=== PATIENT | male | born 1995 | race Caucasian/White ===

== ENCOUNTER 2021-06-30 09:47 | Emergency (ER) | payer OTHER, MEDICAID, SELFPAY ==
[2021-06-30] VITALS (39 sets, daily range): BP systolic 107–153; BP diastolic 57–92; PULSE 70–116; RESP 10–59; TEMP 37.1–37.3; O2SAT 84–100
[2021-06-30] MEDS: LORazepam 2 MG/ML INJ 0.5 MG IV ×2 (09:50→16:45)
[2021-06-30] MEDS: ONDANSETRON 4 MG/2 ML INJ IV ×2 (09:50→18:29)
--- NOTE | 2021-06-30 10:00 | DI.CT.S_ITS ---
PROCEDURE: CT HEAD/BRAIN WO CON INDICATIONS: seizure x 3 today, hx sz disorder, more frequent than normal TECHNIQUE: Noncontrast 4.5 mm thick angled axial sections acquired from the foramen magnum to the vertex, with coronal and sagittal reformats. For radiation dose reduction, the following was used: automated exposure control, adjustment of mA and/or kV according to patient size. COMPARISON: None. FINDINGS: Image quality: Excellent. CSF spaces: Basal cisterns are patent. No extra-axial fluid collections. Ventricles are normal in size and shape. Brain: No midline shift. No intracranial masses or hemorrhage. Aggarwal-white matter interface is normal. Skull and face: Calvarium and visualized facial bones are intact, without suspicious lesions. Sinuses: Visualized sinuses and mastoids are clear. IMPRESSION: No acute intracranial disease process. Dictated by: Dorie Goel MD, PhD on 06/30/2021 at 11:06 Approved by: Dorie Goel MD, PhD on 06/30/2021 at 11:11
--- NOTE | 2021-06-30 10:03 | ED_ITS ---
HPI - Seizure <Carolyn Garciayonas - Last Filed: 07/02/21 15:52> General Chief Complaint: Seizure Stated Complaint: seizure Time Seen by Provider: 06/30/21 09:52 Source: patient Mode of arrival: Ambulatory Limitations: no limitations History of Present Illness HPI Narrative: This is a 25-year-old male who comes emergency department with witnessed seizure activity by parents. Patient has a history of what sounds like absent as well as possibly tonic-clonic seizures although his mom describes them as being more facial movement. Today patient was at home. He lives with his parents. His father heard a thump went into the bathroom with the patient was at and saw him on the floor. He awaking quite shortly, was up and then had 2 episodes that witnessed by father and subsequently by the mother. Patient had movement consistent with his prior seizures according to the mother. He was p ostictal with EMS and has been improving consciousness here in the department. Per EMS patient is on Keppra. Mother brought his medications which include aripiprazole, trazodone, escitalopram but did not bring his prescription for Keppra. Patient is still somewhat postictal and is unsure if he has had any missed dosages for interruptions in his medication. He typically follows with Neurology at [facility]. He has had some intermittent absent seizures in the last year but has not had any more generalized type seizures in the past year. Patient has not been complaining of feeling ill or having any exacerbating factors that he or his family are aware of at the moment but patient does have difficulty remembering much history at this time. Review of Systems <Carolyn Briggs DO - Last Filed: 07/02/21 15:52> Review of Systems ROS Unobtainable: All systems reviewed & are unremarkable except as noted in HPI and below Exam <Carolyn Sharla Briggs - Last Filed: 07/02/21 15:52> Narrative Exam Narrative: GEN: well nourished, well appearing male, alert, confused, patient appears to be in mild distress. HEENT: Patient has an abrasion and some swelling of the left cheek, pupils are equal round reactive to light, extraocular movements are intact, nares are clear, TMs are clear with no fluid, there is no conjunctival pallor. Throat is clear without any exudates, erythema, tonsillar enlargement or uvular deviation, no facial droop. Clear speech. No meningeal signs. HEART: Regular rate and rhythm without murmur, clicks, rubs. Pulses are equal in upper and lower extremities LUNGS:Lungs clear to auscultation, no wheezes, rales, crackles, chest moves symmetrically ABD:bowel sounds normal, soft, non-tender, no guarding, rebound, rigidity, no masses noted, no hepatosplenomegaly :No CVA tenderness MSCL: Non-tender, no muscle atrophy, muscles strength 5/5 upper and lower extremities, full range of motion, patient is able to sit up and lay back in the without any assistance. NEURO:CN 2-12 intact, sensation normal, reflexes 2/4 upper and lower extremities. SKIN: No other changes than noted above. . Initial Vital Signs Initial Vital Signs: Vital Signs Pulse Rate 92 H 06/30/21 09:57 Respiratory Rate 21 06/30/21 09:57 <Kali Pang, DO - Last Filed: 07/01/21 01:23> Initial Vital Signs Initial Vital Signs: Vital Signs Pulse Rate 92 H 06/30/21 09:57 Respiratory Rate 21 06/30/21 09:57 Scores <Carolyn Briggs, DO - Last Filed: 07/02/21 15:52> GCS Anais coma scale eye opening: Spontaneous Anais coma scale verbal response: Confused Anais coma scale motor response: Obey commands [place] coma scale total score: 14 <Kali Pang DO - Last Filed: 07/01/21 01:23> GCS [place] coma scale total score: 14 Course <Carolyn Briggs, DO - Last Filed: 07/02/21 15:52> Orders Ordered: Discontinued Medications Divalproex Sodium (Divalproex Dr 250 Mg Tablet) 750 mg PO NOW ONE Stop: 06/30/21 19:19 Last Admin: 06/30/21 21:29 Dose: Not Given Documented by: CTR.HANDER Levetiracetam 1,000 mg/ Sodium (Chloride) 110 mls @ 440 mls/hr IV NOW ONE Stop: 06/30/21 10:00 Last Infusion: 06/30/21 11:00 Dose: 0 mls/hr Documented by: CTR.HANDER Admin: 06/30/21 10:35 Dose: 440 mls/hr Documented by: CTR.HANDER Sodium Chloride (Normal Saline 0.9%) 1,000 mls @ 1,000 mls/hr IV BOLUS ONE Stop: 06/30/21 10:58 Last Infusion: 06/30/21 13:27 Dose: 0 mls/hr Documented by: Admin: 06/30/21 10:36 Dose: 1,000 mls/hr Documented by: KATARINA Sodium Chloride (Normal Saline 0.9%) 1,000 mls @ 1,000 mls/hr IV BOLUS ONE Stop: 06/30/21 14:24 Last Infusion: 06/30/21 14:57 Dose: 0 mls/hr Documented by: Admin: 06/30/21 13:30 Dose: 1,000 mls/hr Documented by: KATARINA Sodium Chloride (Normal Saline 0.9%) 1,000 mls @ 150 mls/hr IV CONT MIKAELA Last Infusion: 07/01/21 01:36 Dose: 150 mls/hr Documented by: Admin: 07/01/21 01:09 Dose: 150 mls/hr Documented by: Infusion: 06/30/21 23:26 Dose: 150 mls/hr Documented by: Admin: 06/30/21 16:45 Dose: 150 mls/hr Documented by: KATARINA Levetiracetam 1,000 mg/ Sodium (Chloride) 110 mls @ 440 mls/hr IV NOW ONE Stop: 06/30/21 19:18 Last Infusion: 06/30/21 20:21 Dose: 0 mls/hr Documented by: Admin: 06/30/21 20:02 Dose: 440 mls/hr Documented by: KATARINA Fosphenytoin Sodium 750 mg/ (Sodium Chloride) 115 mls @ 230 mls/hr IV NOW ONE Stop: 06/30/21 19:29 Last Infusion: 06/30/21 21:25 Dose: 0 mls/hr Documented by: Admin: 06/30/21 20:23 Dose: 230 mls/hr Documented by: KATARINA Lorazepam (Lorazepam 2 Mg/Ml Inj) 0.5 mg IV NOW ONE Stop: 06/30/21 10:31 Last Admin: 06/30/21 09:50 Dose: 0.5 mg Documented by: AMBROSIO Lorazepam (Lorazepam 2 Mg/Ml Inj) 0.5 mg IV Q6HR PRN PRN Reason: Anxiety Last Admin: 06/30/21 16:45 Dose: 0.5 mg Documented by: KATARINA Ondansetron HCl (Ondansetron 4 Mg/2 Ml Inj) 4 mg IV NOW ONE Stop: 06/30/21 10:31 Last Admin: 06/30/21 09:50 Dose: 4 mg Documented by: AMBROSIO Ondansetron HCl (Ondansetron 4 Mg Odt) 4 mg SL NOW ONE Stop: 06/30/21 15:50 Last Admin: 06/30/21 15:56 Dose: 4 mg Documented by: HANDER Ondansetron HCl (Ondansetron 4 Mg/2 Ml Inj) 4 mg IV NOW ONE Stop: 06/30/21 18:25 Last Admin: 06/30/21 18:29 Dose: 4 mg Documented by: KATARINA Reevaluation(s) Time: 12:39 Consultations Consultation #1: Dr. Duong, this Neurology at [facility]. This is patient's a neurologist. 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 Patient was on the X SR version of Keppra a 1000 mg in the morning and 1500 mg in the evening and has an appointment on 07/13/2021. She recommends increasing to 1500 mg b.i.d.. Keppra level has been sent and she will try that helpful for them. If patient is not returning completely to baseline we will recontact. Consultation #2: Dr. Hernandez, at [facility] with neurology. Discussed patient's l abs including procalcitonin. He is still not at baseline. He has not improved further and with mother in room who states is atypical. Recommend an additional dose of a 1000 mg Keppra IV as well as 750 mg of Depakote IV or p.o.. IV would be preferable. If patient continues to not improve, becomes more obtunded or develops fevers would recommend a lumbar puncture at this point. His suspicion is patient has had many seizures. We did discuss we do not have EEG capability. At this time there are no beds available at the hospitals in the region so we are to recontact if not improving for transfer but no transfer at this time. Vital Signs Vital signs: Vital Signs - 8 hr 06/30/21 17:30 06/30/21 18:00 06/30/21 18:30 Temperature Pulse Rate 85 80 92 H Respiratory Rate 27 H 25 H 37 H Blood Pressure Pulse Oximetry 97 94 91 06/30/21 19:00 06/30/21 19:30 06/30/21 20:00 Temperature Pulse Rate 79 80 83 Respiratory Rate 27 H 22 33 H Blood Pressure Pulse Oximetry 98 96 97 06/30/21 20:30 06/30/21 21:00 06/30/21 21:15 Temperature Pulse Rate 88 80 89 Respiratory Rate 31 H 59 H 25 H Blood Pressure 120/64 Pulse Oximetry 98 94 100 06/30/21 21:30 06/30/21 21:33 Temperature 99.1 F 98.7 F Pulse Rate Respiratory Rate Blood Pressure Pulse Oximetry <Kali Pang, - Last Filed: 07/01/21 01:23> Course Course Narrative: Patient received in sign-out from Dr. Briggs. I performed independent history and physical exam and have no significant additions. At time of initial evaluation patient is still a bit sluggish to respond, I have been in contact with Dr. Sandoval, on-call Neurology hospitalist at [facility] and we agree to hold on a bit and allow meds to fully take effect 0000 - patient at baseline. Awake, alert and oriented. Asymptomatic. 0130 -patient continues to be at baseline, asymptomatic. I have re-contacted [facility] Neurology and after lengthy discussion of the patient's presentation, physical exam, response to therapies we sure the opinion the patient is appropriate for discharge. She again recommends increasing Keppra dosing to 1500 mg b.i.d. and contacting the neurology office on Saturday. He does have an appointment, as stated for July 13, she will relate a message to the office as well. He is given extensive return precautions Orders Ordered: Discontinued Medications Divalproex Sodium (Divalproex Dr 250 Mg Tablet) 750 mg PO NOW ONE Stop: 06/30/21 19:19 Last Admin: 06/30/21 21:29 Dose: Not Given Documented by: CTR.HANDER Levetiracetam 1,000 mg/ Sodium (Chloride) 110 mls @ 440 mls/hr IV NOW ONE Stop: 06/30/21 10:00 Last Infusion: 06/30/21 11:00 Dose: 0 mls/hr Documented by: CTRMiriamHANDER Admin: 06/30/21 10:35 Dose: 440 mls/hr Documented by: CTRMiriamHANDLENNY Sodium Chloride (Normal Saline 0.9%) 1,000 mls @ 1,000 mls/hr IV BOLUS ONE Stop: 06/30/21 10:58 Last Infusion: 06/30/21 13:27 Dose: 0 mls/hr Documented by: CTRMiriamHANDER Admin: 06/30/21 10:36 Dose: 1,000 mls/hr Documented by: CTRMiriamHANDLENNY Sodium Chloride (Normal Saline 0.9%) 1,000 mls @ 1,000 mls/hr IV BOLUS ONE Stop: 06/30/21 14:24 Last Infusion: 06/30/21 14:57 Dose: 0 mls/hr Documented by: CTRMiriamHANDER Admin: 06/30/21 13:30 Dose: 1,000 mls/hr Documented by: CTRMiriamHANDLENNY Sodium Chloride (Normal Saline 0.9%) 1,000 mls @ 150 mls/hr IV CONT MIKAELA Last Infusion: 07/01/21 01:36 Dose: 150 mls/hr Documented by: Admin: 07/01/21 01:09 Dose: 150 mls/hr Documented by: Infusion: 06/30/21 23:26 Dose: 150 mls/hr Documented by: Admin: 06/30/21 16:45 Dose: 150 mls/hr Documented by: CTRMiriamHANDLENNY Levetiracetam 1,000 mg/ Sodium (Chloride) 110 mls @ 440 mls/hr IV NOW ONE Stop: 06/30/21 19:18 Last Infusion: 06/30/21 20:21 Dose: 0 mls/hr Documented by: CTRMiriamHANDER Admin: 06/30/21 20:02 Dose: 440 mls/hr Documented by: CTRMiriamHANDLENNY Fosphenytoin Sodium 750 mg/ (Sodium Chloride) 115 mls @ 230 mls/hr IV NOW ONE Stop: 06/30/21 19:29 Last Infusion: 06/30/21 21:25 Dose: 0 mls/hr Documented by: CTRMiriamHANDER Admin: 06/30/21 20:23 Dose: 230 mls/hr Documented by: KATARINA Lorazepam (Lorazepam 2 Mg/Ml Inj) 0.5 mg IV NOW ONE Stop: 06/30/21 10:31 Last Admin: 06/30/21 09:50 Dose: 0.5 mg Documented by: AMBROSIO Lorazepam (Lorazepam 2 Mg/Ml Inj) 0.5 mg IV Q6HR PRN PRN Reason: Anxiety Last Admin: 06/30/21 16:45 Dose: 0.5 mg Documented by: KATARINA Ondansetron HCl (Ondansetron 4 Mg/2 Ml Inj) 4 mg IV NOW ONE Stop: 06/30/21 10:31 Last Admin: 06/30/21 09:50 Dose: 4 mg Documented by: AMBROSIO Ondansetron HCl (Ondansetron 4 Mg Odt) 4 mg SL NOW ONE Stop: 06/30/21 15:50 Last Admin: 06/30/21 15:56 Dose: 4 mg Documented by: KATARINA Ondansetron HCl (Ondansetron 4 Mg/2 Ml Inj) 4 mg IV NOW ONE Stop: 06/30/21 18:25 Last Admin: 06/30/21 18:29 Dose: 4 mg Documented by: KATARINA Vital Signs Vital signs: Vital Signs - 8 hr 06/30/21 17:30 06/30/21 18:00 06/30/21 18:30 Temperature Pulse Rate 85 80 92 H Respiratory Rate 27 H 25 H 37 H Blood Pressure Pulse Oximetry 97 94 91 06/30/21 19:00 06/30/21 19:30 06/30/21 20:00 Temperature Pulse Rate 79 80 83 Respiratory Rate 27 H 22 33 H Blood Pressure Pulse Oximetry 98 96 97 06/30/21 20:30 06/30/21 21:00 06/30/21 21:15 Temperature Pulse Rate 88 80 89 Respiratory Rate 31 H 59 H 25 H Blood Pressure 120/64 Pulse Oximetry 98 94 100 06/30/21 21:30 06/30/21 21:33 Temperature 99.1 F 98.7 F Pulse Rate Respiratory Rate Blood Pressure Pulse Oximetry MDM - Seizure <Carolyn Briggs DO - Last Filed: 07/02/21 15:52> Lab Data Result diagrams: 06/30/21 10:50 06/30/21 16:33 Labs: Lab Results 06/30/21 06/30/21 06/30/21 Range/Units 09:53 10:50 10:50 WBC 24.7 H (4.5-11.0) X10^3/uL RBC 4.83 (4.5-5.9) X10^6/uL Hgb 14.0 (13.5-17.5) g/dL Hct 41.8 (41-53) % MCV 86.6 (80-100) fL MCH 29.0 (26-34) PG MCHC 33.4 (30-36) % RDW 13.6 (11.6-14.8) % Plt Count 232 (150-400) X10^3/uL Neut % (Auto) 87.4 H (50-75) % Lymph % (Auto) 3.7 L (25-40) % Tate % (Auto) 8.6 (3-14) % Eos % (Auto) 0.0 L (2-4) % Baso % (Auto) 0.3 (0-2) % Neut # (Auto) 72302 H (1800-3557) /uL Lymph # (Auto) 900 L (5810-4859) /uL Tate # (Auto) 2100 H (0-900) /uL Eos # (Auto) 0 (0-450) /uL Baso # (Auto) 100 (0-100) /uL Sodium (137-145) mmol/L Potassium (3.4-5.1) mmol/L Chloride (98-107) mmol/L Carbon Dioxide (22-32) mmol/L BUN (9-20) mg/dL Creatinine (0.66-1.25) mg/dL Estimated GFR (>60) mL/min BUN/Creatinine Ratio (6-22) Glucose (70-100) mg/dL Lactate (0.7-2.1) mmol/L Calcium (8.4-10.2) mg/dL Magnesium (1.6-2.3) mg/dL Total Bilirubin (0.2-1.3) mg/dL AST (17-59) IU/L ALT (<50) IU/L Alkaline Phosphatase (38-126) U/L Total Protein (6.3-8.2) g/dL Albumin (3.5-5.0) g/dL Globulin (1.7-4.1) g/dL Albumin/Globulin Ratio (1.0-2.8) Lipase (23-300) U/L Procalcitonin (<0.5) ng/mL Prolactin (3.7-17.9) ng/mL Urine RBC (0-5/HPF) Urine WBC (0-5/HPF) Uric Acid Crystals (None) Amorphous Sediment Urine Bacteria (None) Ur Culture Indicated? U Opiates 300ng/mL cut (Negative) Ur Oxycodone Screen (Negative) Urine Methadone Screen (Negative) Ur Barbiturates Screen (Negative) U Tricyclic Antidepress (Negative) Ur Phencyclidine Scrn (Negative) Ur Amphetamines Screen (Negative) U Methamphetamines Scrn (Negative) Ur MDMA Scrn (Ecstasy) (Negative) U Benzodiazepines Scrn (Negative) Urine Cocaine Screen (Negative) U Marijuana (THC) Screen (Negative) Ethyl Alcohol < 10 ( - 10) mg/dL SARS-CoV-2 (PCR) Negative (Negative) 06/30/21 06/30/21 06/30/21 Range/Units 10:50 14:00 14:00 WBC (4.5-11.0) X10^3/uL RBC (4.5-5.9) X10^6/uL Hgb (13.5-17.5) g/dL Hct (41-53) % MCV (80-100) fL MCH (26-34) PG MCHC (30-36) % RDW (11.6-14.8) % Plt Count (150-400) X10^3/uL Neut % (Auto) (50-75) % Lymph % (Auto) (25-40) % Tate % (Auto) (3-14) % Eos % (Auto) (2-4) % Baso % (Auto) (0-2) % Neut # (Auto) (3612-3245) /uL Lymph # (Auto) (3011-7269) /uL Tate # (Auto) (0-900) /uL Eos # (Auto) (0-450) /uL Baso # (Auto) (0-100) /uL Sodium 140 (137-145) mmol/L Potassium 3.5 (3.4-5.1) mmol/L Chloride 110 H (98-107) mmol/L Carbon Dioxide 21 L (22-32) mmol/L BUN 13 (9-20) mg/dL Creatinine 0.92 (0.66-1.25) mg/dL Estimated GFR > 60.0 (>60) mL/min BUN/Creatinine Ratio 14.1 (6-22) Glucose 102 H (70-100) mg/dL Lactate (0.7-2.1) mmol/L Calcium 9.0 (8.4-10.2) mg/dL Magnesium 2.4 H (1.6-2.3) mg/dL Total Bilirubin (0.2-1.3) mg/dL AST (17-59) IU/L ALT (<50) IU/L Alkaline Phosphatase (38-126) U/L Total Protein (6.3-8.2) g/dL Albumin (3.5-5.0) g/dL Globulin (1.7-4.1) g/dL Albumin/Globulin Ratio (1.0-2.8) Lipase (23-300) U/L Procalcitonin (<0.5) ng/mL Prolactin 3.7 (3.7-17.9) ng/mL Urine RBC None seen (0-5/HPF) Urine WBC 0-1/hpf (0-5/HPF) Uric Acid Crystals Occasional (None) Amorphous Sediment 2+ Urine Bacteria None seen (None) Ur Culture Indicated? Cult not indicated U Opiates 300ng/mL cut Negative (Negative) Ur Oxycodone Screen Negative (Negative) Urine Methadone Screen Negative (Negative) Ur Barbiturates Screen Negative (Negative) U Tricyclic Antidepress Negative (Negative) Ur Phencyclidine Scrn Negative (Negative) Ur Amphetamines Screen Negative (Negative) U Methamphetamines Scrn Negative (Negative) Ur MDMA Scrn (Ecstasy) Negative (Negative) U Benzodiazepines Scrn Negative (Negative) Urine Cocaine Screen Negative (Negative) U Marijuana (THC) Screen Positive H (Negative) Ethyl Alcohol ( - 10) mg/dL SARS-CoV-2 (PCR) (Negative) 06/30/21 06/30/21 06/30/21 Range/Units 16:33 16:33 16:33 WBC (4.5-11.0) X10^3/uL RBC (4.5-5.9) X10^6/uL Hgb (13.5-17.5) g/dL Hct (41-53) % MCV (80-100) fL MCH (26-34) PG MCHC (30-36) % RDW (11.6-14.8) % Plt Count (150-400) X10^3/uL Neut % (Auto) (50-75) % Lymph % (Auto) (25-40) % Tate % (Auto) (3-14) % Eos % (Auto) (2-4) % Baso % (Auto) (0-2) % Neut # (Auto) (4925-5535) /uL Lymph # (Auto) (6335-5905) /uL Tate # (Auto) (0-900) /uL Eos # (Auto) (0-450) /uL Baso # (Auto) (0-100) /uL Sodium 140 (137-145) mmol/L Potassium 3.8 (3.4-5.1) mmol/L Chloride 113 H (98-107) mmol/L Carbon Dioxide 17 L (22-32) mmol/L BUN 17 (9-20) mg/dL Creatinine 1.40 H (0.66-1.25) mg/dL Estimated GFR > 60.0 (>60) mL/min BUN/Creatinine Ratio 12.1 (6-22) Glucose 118 H (70-100) mg/dL Lactate 1.6 (0.7-2.1) mmol/L Calcium 8.4 (8.4-10.2) mg/dL Magnesium (1.6-2.3) mg/dL Total Bilirubin 0.3 (0.2-1.3) mg/dL AST 37 (17-59) IU/L ALT 19 (<50) IU/L Alkaline Phosphatase 48 (38-126) U/L Total Protein 6.7 (6.3-8.2) g/dL Albumin 4.1 (3.5-5.0) g/dL Globulin 2.6 (1.7-4.1) g/dL Albumin/Globulin Ratio 1.6 (1.0-2.8) Lipase 88 (23-300) U/L Procalcitonin 1.65 H (<0.5) ng/mL Prolactin (3.7-17.9) ng/mL Urine RBC (0-5/HPF) Urine WBC (0-5/HPF) Uric Acid Crystals (None) Amorphous Sediment Urine Bacteria (None) Ur Culture Indicated? U Opiates 300ng/mL cut (Negative) Ur Oxycodone Screen (Negative) Urine Methadone Screen (Negative) Ur Barbiturates Screen (Negative) U Tricyclic Antidepress (Negative) Ur Phencyclidine Scrn (Negative) Ur Amphetamines Screen (Negative) U Methamphetamines Scrn (Negative) Ur MDMA Scrn (Ecstasy) (Negative) U Benzodiazepines Scrn (Negative) Urine Cocaine Screen (Negative) U Marijuana (THC) Screen (Negative) Ethyl Alcohol ( - 10) mg/dL SARS-CoV-2 (PCR) (Negative) Urine Dip Bedside Urine Glucose 100 mg/dl Bedside Urine Bilirubin - Negative Bedside Urine Ketone +/- 5 Urine Specific Davis 1.025 Bedside Urine Occult Blood + Bedside Urine pH 6.0 Bedside Urine Protein + 30 Bedside Urine Urobilinogen - Negative Bedside Urine Nitrite - Negative Bedside Urine Leukocytes - Negative Esterase Imaging Data CT scan - head: Radiologist's Impression: [address] [id number] Scan ReportSigned Patient: Leeroy Wilson II#: [id number]: 1995Acct:[id number]/Sex: 25 / MDate of Service: 06/30/21Loc: EDAccession Number: [id number] Procedure: CT head/brain wo con Ordering Provider: Carolyn Briggs D.O. PROCEDURE: CT HEAD/BRAIN WO CON INDICATIONS: seizure x 3 today, hx sz disorder, more frequent than normal TECHNIQUE: Noncontrast 4.5 mm thick angled axial sections acquired from the foramen magnum to the vertex, with coronal and sagittal reformats. For radiation dose reduction, the following was used: automated exposure control, adjustment of mA and/or kV according to patient size. COMPARISON: None. FINDINGS: Image quality: Excellent. CSF spaces: Basal cisterns are patent. No extra-axial fluid collections. Ventricles are normal in size and shape. Brain: No midline shift. No intracranial masses or hemorrhage. Aggarwal-white mat ter interface is normal. Skull and face: Calvarium and visualized facial bones are intact, without suspicious lesions. Sinuses: Visualized sinuses and mastoids are clear. IMPRESSION: No acute intracranial disease process. Dictated by: Dorie Goel MD, PhD on 06/30/2021 at 11:06 Approved by: Dorie Goel MD, PhD on 06/30/2021 at 11:11 ECG Data Attestation: I personally reviewed and interpreted this ECG as follows: Prior ECG tracings: not available for review Interpretation: Sinus rhythm with sinus arrhythmia. Rate of 90 7p are 122 QRS 88 QTC 436. Nonspecific change. MDM Narrative Medical decision making narrative: This is a 25-year-old male comes in with complaint of seizure who has never returned to his baseline mentation. Patient was loaded initially with 1000 mg of Keppra. Discussed with his regular neurologist. Patient had some Ativan so there was concern that possibly this was altering his mental status but he has still not improved. Case was dis cussed again with Neurology after some further evaluation for infection as patient had several episodes of emesis. He does not have any other new acute focal neurologic changes. He has been afebrile. Patient continues to be confused but has not had worsening of his mentation. Repeat Neurology re commendations were given. They do recommend if patient becomes more obtunded or develops fevers in lumbar puncture would be appropriate. At this time they do not recommend for transfer there is little to no bed availability but if patient is worsening or not improving they ask her recontact. Patient signed out to Dr. Pang for observation in department for final disposition. <Kali Pang DO - Last Filed: 07/01/21 01:23> Lab Data Labs: Lab Results 06/30/21 06/30/21 06/30/21 Range/Units 09:53 10:50 10:50 WBC 24.7 H (4.5-11.0) X10^3/uL RBC 4.83 (4.5-5.9) X10^6/uL Hgb 14.0 (13.5-17.5) g/dL Hct 41.8 (41-53) % MCV 86.6 (80-100) fL MCH 29.0 (26-34) PG MCHC 33.4 (30-36) % RDW 13.6 (11.6-14.8) % Plt Count 232 (150-400) X10^3/uL Neut % (Auto) 87.4 H (50-75) % Lymph % (Auto) 3.7 L (25-40) % Tate % (Auto) 8.6 (3-14) % Eos % (Auto) 0.0 L (2-4) % Baso % (Auto) 0.3 (0-2) % Neut # (Auto) 66937 H (4454-9440) /uL Lymph # (Auto) 900 L (0449-6318) /uL Tate # (Auto) 2100 H (0-900) /uL Eos # (Auto) 0 (0-450) /uL Baso # (Auto) 100 (0-100) /uL Sodium (137-145) mmol/L Potassium (3.4-5.1) mmol/L Chloride (98-107) mmol/L Carbon Dioxide (22-32) mmol/L BUN (9-20) mg/dL Creatinine (0.66-1.25) mg/dL Estimated GFR (>60) mL/min BUN/Creatinine Ratio (6-22) Glucose (70-100) mg/dL Lactate (0.7-2.1) mmol/L Calcium (8.4-10.2) mg/dL Magnesium (1.6-2.3) mg/dL Total Bilirubin (0.2-1.3) mg/dL AST (17-59) IU/L ALT (<50) IU/L Alkaline Phosphatase (38-126) U/L Total Protein (6.3-8.2) g/dL Albumin (3.5-5.0) g/dL Globulin (1.7-4.1) g/dL Albumin/Globulin Ratio (1.0-2.8) Lipase (23-300) U/L Procalcitonin (<0.5) ng/mL Prolactin (3.7-17.9) ng/mL Urine RBC (0-5/HPF) Urine WBC (0-5/HPF) Uric Acid Crystals (None) Amorphous Sediment Urine Bacteria (None) Ur Culture Indicated? U Opiates 300ng/mL cut (Negative) Ur Oxycodone Screen (Negative) Urine Methadone Screen (Negative) Ur Barbiturates Screen (Negative) U Tricyclic Antidepress (Negative) Ur Phencyclidine Scrn (Negative) Ur Amphetamines Screen (Negative) U Methamphetamines Scrn (Negative) Ur MDMA Scrn (Ecstasy) (Negative) U Benzodiazepines Scrn (Negative) Urine Cocaine Screen (Negative) U Marijuana (THC) Screen (Negative) Ethyl Alcohol < 10 ( - 10) mg/dL SARS-CoV-2 (PCR) Negative (Negative) 06/30/21 06/30/21 06/30/21 Range/Units 10:50 14:00 14:00 WBC (4.5-11.0) X10^3/uL RBC (4.5-5.9) X10^6/uL Hgb (13.5-17.5) g/dL Hct (41-53) % MCV (80-100) fL MCH (26-34) PG MCHC (30-36) % RDW (11.6-14.8) % Plt Count (150-400) X10^3/uL Neut % (Auto) (50-75) % Lymph % (Auto) (25-40) % Tate % (Auto) (3-14) % Eos % (Auto) (2-4) % Baso % (Auto) (0-2) % Neut # (Auto) (4238-5484) /uL Lymph # (Auto) (1180-3185) /uL Tate # (Auto) (0-900) /uL Eos # (Auto) (0-450) /uL Baso # (Auto) (0-100) /uL Sodium 140 (137-145) mmol/L Potassium 3.5 (3.4-5.1) mmol/L Chloride 110 H (98-107) mmol/L Carbon Dioxide 21 L (22-32) mmol/L BUN 13 (9-20) mg/dL Creatinine 0.92 (0.66-1.25) mg/dL Estimated GFR > 60.0 (>60) mL/min BUN/Creatinine Ratio 14.1 (6-22) Glucose 102 H (70-100) mg/dL Lactate (0.7-2.1) mmol/L Calcium 9.0 (8.4-10.2) mg/dL Magnesium 2.4 H (1.6-2.3) mg/dL Total Bilirubin (0.2-1.3) mg/dL AST (17-59) IU/L ALT (<50) IU/L Alkaline Phosphatase (38-126) U/L Total Protein (6.3-8.2) g/dL Albumin (3.5-5.0) g/dL Globulin (1.7-4.1) g/dL Albumin/Globulin Ratio (1.0-2.8) Lipase (23-300) U/L Procalcitonin (<0.5) ng/mL Prolactin 3.7 (3.7-17.9) ng/mL Urine RBC None seen (0-5/HPF) Urine WBC 0-1/hpf (0-5/HPF) Uric Acid Crystals Occasional (None) Amorphous Sediment 2+ Urine Bacteria None seen (None) Ur Culture Indicated? Cult not indicated U Opiates 300ng/mL cut Negative (Negative) Ur Oxycodone Screen Negative (Negative) Urine Methadone Screen Negative (Negative) Ur Barbiturates Screen Negative (Negative) U Tricyclic Antidepress Negative (Negative) Ur Phencyclidine Scrn Negative (Negative) Ur Amphetamines Screen Negative (Negative) U Methamphetamines Scrn Negative (Negative) Ur MDMA Scrn (Ecstasy) Negative (Negative) U Benzodiazepines Scrn Negative (Negative) Urine Cocaine Screen Negative (Negative) U Marijuana (THC) Screen Positive H (Negative) Ethyl Alcohol ( - 10) mg/dL SARS-CoV-2 (PCR) (Negative) 06/30/21 06/30/21 06/30/21 Range/Units 16:33 16:33 16:33 WBC (4.5-11.0) X10^3/uL RBC (4.5-5.9) X10^6/uL Hgb (13.5-17.5) g/dL Hct (41-53) % MCV (80-100) fL MCH (26-34) PG MCHC (30-36) % RDW (11.6-14.8) % Plt Count (150-400) X10^3/uL Neut % (Auto) (50-75) % Lymph % (Auto) (25-40) % [place] % (Auto) (3-14) % Eos % (Auto) (2-4) % Baso % (Auto) (0-2) % Neut # (Auto) (3139-9790) /uL Lymph # (Auto) (2865-2387) /uL [place] # (Auto) (0-900) /uL Eos # (Auto) (0-450) /uL Baso # (Auto) (0-100) /uL Sodium 140 (137-145) mmol/L Potassium 3.8 (3.4-5.1) mmol/L Chloride 113 H (98-107) mmol/L Carbon Dioxide 17 L (22-32) mmol/L BUN 17 (9-20) mg/dL Creatinine 1.40 H (0.66-1.25) mg/dL Estimated GFR > 60.0 (>60) mL/min BUN/Creatinine Ratio 12.1 (6-22) Glucose 118 H (70-100) mg/dL Lactate 1.6 (0.7-2.1) mmol/L Calcium 8.4 (8.4-10.2) mg/dL Magnesium (1.6-2.3) mg/dL Total Bilirubin 0.3 (0.2-1.3) mg/dL AST 37 (17-59) IU/L ALT 19 (<50) IU/L Alkaline Phosphatase 48 (38-126) U/L Total Protein 6.7 (6.3-8.2) g/dL Albumin 4.1 (3.5-5.0) g/dL Globulin 2.6 (1.7-4.1) g/dL Albumin/Globulin Ratio 1.6 (1.0-2.8) Lipase 88 (23-300) U/L Procalcitonin 1.65 H (<0.5) ng/mL Prolactin (3.7-17.9) ng/mL Urine RBC (0-5/HPF) Urine WBC (0-5/HPF) Uric Acid Crystals (None) Amorphous Sediment Urine Bacteria (None) Ur Culture Indicated? U Opiates 300ng/mL cut (Negative) Ur Oxycodone Screen (Negative) Urine Methadone Screen (Negative) Ur Barbiturates Screen (Negative) U Tricyclic Antidepress (Negative) Ur Phencyclidine Scrn (Negative) Ur Amphetamines Screen (Negative) U Methamphetamines Scrn (Negative) Ur MDMA Scrn (Ecstasy) (Negative) U Benzodiazepines Scrn (Negative) Urine Cocaine Screen (Negative) U Marijuana (THC) Screen (Negative) Ethyl Alcohol ( - 10) mg/dL SARS-CoV-2 (PCR) (Negative) Urine Dip Bedside Urine Glucose 100 mg/dl Bedside Urine Bilirubin - Negative Bedside Urine Ketone +/- 5 Urine Specific [place] 1.025 Bedside Urine Occult Blood + Bedside Urine pH 6.0 Bedside Urine Protein + 30 Bedside Urine Urobilinogen - Negative Bedside Urine Nitrite - Negative Bedside Urine Leukocytes - Negative Esterase <Kali VasquezDO elba - Last Filed: 07/01/21 01:23> Critical Care Time Critical Care Time: Yes Total Critical Care Time: 45 Attestation: The high probability of a clinically significant, sudden or life threatening deterioration of the [Neuro] system(s) required my full and direct attention, intervention and personal management. The aggregate critical care time was [45] minutes. This time is in addition to time spent performing reported procedures but includes the following: [x] Data Review and interpretation [x] Patient assessment and monitoring of vital signs [x] Documentation [x] Medication orders and management Discharge Plan Departure Patient Disposition: Home Clinical Impression: Seizure Instructions: DI for Seizure Disorder -- Adult Activity Restrictions/Additional Instructions: Follow-up with your neurologist. I spoke with them today. They do recommend increasing your Keppra level from 1000 mg in the morning and 1500 mg in the afternoon to 1500 mg twice daily. Prescription sent to Seizure precautions do continue to be in place and at this time you should not be driving until cleared by your neurologist, swimming or bathing without anyone in the near vicinity, or any other high risk activities. Please return for fevers, recurrent seizure-like activity, altered mental status, severe headaches, new chest pain, shortness of breath, difficulty with speech, numbness, tingling weakness or other new or concerning symptoms. Referrals: Fatmata Duong MD [Non-Staff] -
[2021-06-30 10:25] LABS: COVID19 -Nasal RAPID Negative (Negative)
[2021-06-30] MEDS: levETIRAcetam 1,000 MG in SODIUM CHLORIDE 0.9% 100 ML 440 ML IV ×2 (10:35→20:02)
[2021-06-30] MEDS: SODIUM CHLORIDE 0.9% 1,000 ML 1000 ML IV ×2 (10:36→13:30)
[2021-06-30 11:04] LABS: Add Manual Diff / Slide Review NO; Basophils Absolute Auto 100 /uL (0-100); Basophils Percent Auto 0.3 % (0-2); Eosinophils Absolute Auto 0 /uL (0-450); Hematocrit 41.8 % (41-53); Lymphocytes Absolute Auto 900 /uL (1100-4500); Lymphocytes Percent Auto 3.7 % (25-40); Mean Corpuscular HGB Conc 33.4 % (30-36); Mean Corpuscular Volume 86.6 fL (80-100); Monocytes Absolute Auto 2100 /uL (0-900); Monocytes Percent Auto 8.6 % (3-14); Neutrophils Absolute Auto 21600 /uL (1500-7000); Neutrophils Percent Auto 87.4 % (50-75); Platelet Count 232 X10^3/uL (150-400); Red Blood Cell Count 4.83 X10^6/uL (4.5-5.9); Red Cell Distribution Width 13.6 % (11.6-14.8); White Blood Cell Count 24.7 X10^3/uL (4.5-11.0)
[2021-06-30 11:07] LABS: BUN Creatinine Ratio 14.1 (6-22); Blood Urea Nitrogen 13 mg/dL (9-20); Carbon Dioxide 21 mmol/L (22-32); Chloride 110 mmol/L (98-107); Estimated Glomerular Filt Rate > 60.0 mL/min (>60); Glucose 102 mg/dL (70-100); HEMOLYSIS < 15 (0-50); Magnesium 2.4 mg/dL (1.6-2.3); Potassium 3.5 mmol/L (3.4-5.1); Sodium 140 mmol/L (137-145)
[2021-06-30 11:08] LABS: Ethanol (ETOH) < 10 mg/dL
[2021-06-30 11:24] LABS: Prolactin 3.7 ng/mL (3.7-17.9)
--- NOTE | 2021-06-30 14:55 | PC.NURSE ---
Pt remains confused beyond baseline. After being instructed to urinate in the urinal, he urinated in the emesis bag instead. Shortly thereafter he ripped out his IV in his sleep, on accident. Bleeding controlled.
[2021-06-30 15:09] LABS: Bacteria Urine None Seen; RBC Urine None Seen (0-5/HPF)
[2021-06-30 15:14] LABS: UR Morphine/Opiate cutoff 300 Negative (Negative); Ur Creatinine Normal (Normal); Ur Specific Gravity Normal (Normal); Urine Amphetamines Negative (Negative); Urine Barbiturates Negative (Negative); Urine Benzodiazepines Negative (Negative); Urine Cocaine Negative (Negative); Urine MDMA Negative (Negative); Urine Methadone Negative (Negative); Urine Methamphetamines Negative (Negative); Urine Oxycodone Negative (Negative); Urine Phencyclidine Negative (Negative); Urine Tetrahydrocannabinol Positive (Negative); Urine Tricyclic Antidepressant Negative (Negative); Urine pH Normal (Normal)
[2021-06-30 15:23] LABS: Amorphous Sediment Urine 2+; Culture Indicated Urine Cult Not Indicated; Uric Acid Crystals Urine Occasional; WBC Urine 0-1/HPF (0-5/HPF)
[2021-06-30] MEDS: ONDANSETRON 4 MG ODT SL (15:56)
--- NOTE | 2021-06-30 16:17 | DI.CT.S_ITS ---
PROCEDURE: CT ABDOMEN PELVIS W CON INDICATIONS: throwing up, elevated wbc. TECHNIQUE: After the administration of intravenous contrast, axial sections acquired from the lung bases to the pubic symphysis. Coronal and sagittal reformats were performed. For radiation dose reduction, the following was used: automated exposure control, adjustment of mA and/or kV according to patient size. COMPARISON: None. FINDINGS: Image quality: Excellent. Lung bases: Unremarkable. Heart: No significant findings. ABDOMEN: Liver: Unremarkable. Gallbladder: Unremarkable. Biliary ducts: Unremarkable. Pancreas: Unremarkable. Spleen: Unremarkable. Adrenal Glands: Unremarkable. Kidneys and Ureters: Unremarkable. Stomach and Bowel: Stomach, small bowel loops, and colon are unremarkable. Appendix is normal. Peritoneum: No abnormal intraperitoneal fluid. No free air. Ventral Wall: No hernias. Abdominal Nodes: No retroperitoneal or mesenteric adenopathy by size criteria. Vessels: Aorta and inferior vena cava are normal in size. PELVIS: Pelvic Organs: Unremarkable. Bladder: Unremarkable. Pelvic Nodes: No enlarged lymph nodes. Miscellaneous: No hernias are seen. Bones: Unremarkable. IMPRESSION: 1. No acute disease process. 2. No free fluid or free air. 3. No dilated loops of bowel. 4. Appendix is normal. Dictated by: Dorie Goel MD, PhD on 06/30/2021 at 17:22 Approved by: Dorie Goel MD, PhD on 06/30/2021 at 17:26
[2021-06-30] MEDS: SODIUM CHLORIDE 0.9% 1,000 ML 150 ML IV (16:45)
[2021-06-30 17:07] LABS: Alanine Aminotransferase 19 IU/L (<50); Albumin 4.1 g/dL (3.5-5.0); Albumin Globulin Ratio 1.6 (1.0-2.8); Alkaline Phosphatase 48 U/L (38-126); Aspartate Aminotransferase 37 IU/L (17-59); BUN Creatinine Ratio 12.1 (6-22); Bilirubin Total 0.3 mg/dL (0.2-1.3); Blood Urea Nitrogen 17 mg/dL (9-20); Calcium 8.4 mg/dL (8.4-10.2); Carbon Dioxide 17 mmol/L (22-32); Chloride 113 mmol/L (98-107); Estimated Glomerular Filt Rate > 60.0 mL/min (>60); Globulin 2.6 g/dL (1.7-4.1); Glucose 118 mg/dL (70-100); HEMOLYSIS < 15 (0-50); Lipase 88 U/L (23-300); Potassium 3.8 mmol/L (3.4-5.1); Sodium 140 mmol/L (137-145); Total Protein 6.7 g/dL (6.3-8.2)
[2021-06-30 17:08] LABS: Lactate (Lactic Acid) 1.6 mmol/L (0.7-2.1)
[2021-06-30 17:23] LABS: Procalcitonin 1.65 ng/mL (<0.5)
[2021-06-30] MEDS: SODIUM CHLORIDE 0.9% IV (20:23)
[2021-06-30] MEDS: FOSPHENYTOIN IV (20:23)
[2021-07-01] VITALS: PULSE 90; O2SAT 97
[2021-07-01 00:30] VITALS: PULSE 84; O2SAT 97
[2021-07-01 01:00] VITALS: PULSE 88; O2SAT 97
[2021-07-01] MEDS: SODIUM CHLORIDE 0.9% 1,000 ML 150 ML IV (01:09)
[2021-07-01 01:30] VITALS: PULSE 91; O2SAT 98
[2021-07-01 01:38] VITALS: BP 116/70; PULSE 88; O2SAT 98
[2021-07-03 14:14] LABS: Levetiracetam Keppra 17.1 ug/mL (10.0-40.0)
== END 2021-07-01 01:51 | disposition home or self-care (01) ==
PROVIDERS: Emergency Medicine; Emergency Provider Emergency Medicine
DX: R56.9 Unspecified convulsions (principal); R41.82 Altered mental status, unspecified; R11.10 Vomiting, unspecified; Z20.822 Contact with and (suspected) exposure to COVID-19
CPT/HCPCS: 36415; 70450; 74177; 80048; 80053; 80177; 80305; 80320; 81003; 81015; 83605; 83690; 83735; 84145; 84146; 85025; 87040; 87635; 93005; 93010; 96361; 96365; 96366; 96367; 96375; 96376; 99284; 99291; C9803; J1953; J2060; J2405; Q2009; Q9967

== ENCOUNTER → 2021-09-06 11:11 | Outpatient (CLI) | payer OTHER, MEDICAID, SELFPAY ==
[2021-09-11 09:36] LABS: Levetiracetam Keppra 41.2 ug/mL (10.0-40.0)
== END ==
PROVIDERS: PCP Psychiatry & Neurology Neurology; Referring Provider Psychiatry & Neurology Neurology; Visit Provider Psychiatry & Neurology Neurology
DX: G40.109 Localization-related (focal) (partial) symptomatic epilepsy and epileptic syndromes with simple partial seizures, not intractable, without status epilepticus (principal); Z79.899 Other long term (current) drug therapy; Z51.81 Encounter for therapeutic drug level monitoring
CPT/HCPCS: 36415; 80177

== ENCOUNTER 2021-09-19 13:29 | Observation (INO) | payer OTHER, MEDICAID, SELFPAY ==
[2021-09-19] VITALS (24 sets, daily range): BP systolic 103–142; BP diastolic 54–87; PULSE 75–108; RESP 13–30; TEMP 36.4–37.7; O2SAT 93–100; BMI 20.9
--- NOTE | 2021-09-19 14:07 | ED.SEIZURE ---
HPI - Seizure General Chief Complaint: Seizure Stated Complaint: seizure Time Seen by Provider: 09/19/21 13:43 Source: patient Mode of arrival: EMS Limitations: no limitations History of Present Illness HPI Narrative: Patient is a 25-year-old male. Does have history of seizures. Is prescribed Keppra. Takes 1000 mg in the morning and 1500 mg in the evening. He has not been taking his medicines at least for the past couple days. He states that he ?forgot? to the take them. He was at his normal state of health earlier today when he had what appears to be a seizure. He was with his sister at the time. Patient does not remember the event. He was incontinent of urine. He did not bite his tongue. It did resolve on its own. Unsure as to how long the seizure lasted. Patient's mother is at bedside and does appear that he had a period of postictal state afterwards. Unsure as to how long that lasted however upon arrival here in the emergency department he did seem to be back to normal again. Patient does report a headache otherwise no other symptoms. Related Data Allergies Allergy/AdvReac Type Severity Reaction Status Date / Time No Known Drug Allergies Allergy Verified 09/19/21 13:38 Review of Systems Constitutional Constitutional: Denies fever(s) and Reports headache(s) Eyes Comments: No change in vision ENT Ears, Nose, Mouth, and Throat: Reports headache(s) Cardiovascular Comments: Denies chest pain Respiratory Comments: Denies shortness of breath Gastrointestinal Comments: Denies abdominal discomfort Genitourinary Comments: Urinary incontinence Musculoskeletal Comments: Generalized soreness but no specific muscular complaint Integumentary/Breasts Comments: No rashes Neurologic Neurologic: Reports headache(s) Comments: Seizure-like activity Hematologic/Lymphatic On Anticoagulants: No Patient History Medical History Seizure disorder Social History Smoking Status: Current every day smoker Smoking Status: Current every day smoker alcohol intake frequency: holidays/special occasions only Substance Use Type: does not use Exam Initial Vital Signs Initial Vital Signs: Vital Signs Temperature 97.5 F L 09/19/21 13:32 Pulse Rate 85 09/19/21 13:32 Respiratory Rate 13 09/19/21 13:32 Blood Pressure 142/87 H 09/19/21 13:32 Pulse Oximetry 96 09/19/21 13:32 Const General: cooperative, comfortable, well developed and well groomed HENMT Head: normal to inspection and normocephalic Resp Effort & Inspection: normal respiratory effort Auscultation: clear to auscultation bilaterally Cardio Rate: regular rate Rhythm: regular rhythm GI Inspection: normal to inspection Skin General: no rashes or lesions noted Neuro General: patient alert, patient awake, patient oriented x3, moves all extremities and not confused Extrem General: normal to inspection and capillary refill normal Psych Appearance: grossly normal and well kempt Scores GCS Newell coma scale eye opening: Spontaneous Newell coma scale verbal response: Orientated Newell coma scale motor response: Obey commands Newell coma scale total score: 15 Course Orders Ordered: ED Orders 09/19/21 13:45 Urine Drug Screen, Rapid Stat 09/19/21 13:54 Basic Metabolic Panel Stat Magnesium Stat Prolactin Stat 09/19/21 14:10 Complete Blood Count AUTO DIFF Stat 09/19/21 15:14 COVID19 -Nasal swab/Pre-Proc Stat Discontinued Medications Acetaminophen (Acetaminophen 325 Mg Tablet) 650 mg PO NOW ONE Stop: 09/19/21 14:08 Last Admin: 09/19/21 14:17 Dose: 650 mg Documented by: CORTES Levetiracetam 1,000 mg/ Sodium (Chloride) 110 mls @ 440 mls/hr IV NOW ONE Stop: 09/19/21 13:46 Last Infusion: 09/19/21 14:38 Dose: 0 mls/hr Documented by: Admin: 09/19/21 14:16 Dose: 440 mls/hr Documented by: CORTES Lorazepam (Lorazepam 2 Mg/Ml Inj) 2 mg IV NOW ONE Stop: 09/19/21 15:11 Last Admin: 09/19/21 15:11 Dose: 2 mg Documented by: ROSALIND Ondansetron HCl (Ondansetron 4 Mg/2 Ml Inj) 4 mg IV NOW ONE Stop: 09/19/21 15:08 Last Admin: 09/19/21 15:11 Dose: 4 mg Documented by: ROSALIND Vital Signs Vital signs: Vital Signs - 8 hr 09/19/21 13:32 09/19/21 14:00 09/19/21 14:30 Temperature 97.5 F L Pulse Rate 85 75 77 Respiratory Rate 13 18 18 Blood Pressure 142/87 H 118/68 122/71 Pulse Oximetry 96 97 98 09/19/21 14:46 09/19/21 15:00 09/19/21 15:30 Temperature Pulse Rate 78 92 H 100 H Respiratory Rate 20 21 30 H Blood Pressure 134/67 Pulse Oximetry 100 99 99 09/19/21 15:37 09/19/21 16:00 09/19/21 16:18 Temperature Pulse Rate 99 H 92 H Respiratory Rate 22 Blood Pressure 130/75 126/85 Pulse Oximetry 99 99 93 09/19/21 16:30 09/19/21 17:00 09/19/21 17:30 Temperature Pulse Rate 91 H 86 83 Respiratory Rate Blood Pressure 134/79 131/76 123/72 Pulse Oximetry 100 100 96 09/19/21 18:00 09/19/21 18:30 09/19/21 19:00 Temperature Pulse Rate 99 H 92 H 108 H Respiratory Rate Blood Pressure 115/62 122/68 113/56 L Pulse Oximetry 99 97 100 MDM - Seizure Lab Data Attestation: I reviewed the patient's lab results. Result diagrams: 09/19/21 14:10 09/19/21 13:54 Labs: Lab Results 09/19/21 09/19/21 09/19/21 Range/Units 13:54 14:10 15:14 WBC 20.6 H (4.5-11.0) X10^3/uL RBC 4.83 (4.5-5.9) X10^6/uL Hgb 14.0 (13.5-17.5) g/dL Hct 41.5 (41-53) % MCV 85.9 (80-100) fL MCH 29.0 (26-34) PG MCHC 33.8 (30-36) % RDW 13.6 (11.6-14.8) % Plt Count 223 (150-400) X10^3/uL Neut % (Auto) 89.0 H (50-75) % Lymph % (Auto) 4.2 L (25-40) % [place] % (Auto) 6.7 (3-14) % Eos % (Auto) 0.0 L (2-4) % Baso % (Auto) 0.1 (0-2) % Neut # (Auto) 73839 H (8994-1109) /uL Lymph # (Auto) 900 L (2804-4727) /uL [place] # (Auto) 1400 H (0-900) /uL Eos # (Auto) 0 (0-450) /uL Baso # (Auto) 0 (0-100) /uL Sodium 141 (137-145) mmol/L Potassium 3.6 (3.4-5.1) mmol/L Chloride 108 H (98-107) mmol/L Carbon Dioxide 20 L (22-32) mmol/L BUN 11 (9-20) mg/dL Creatinine 0.98 (0.66-1.25) mg/dL Estimated GFR > 60.0 (>60) mL/min BUN/Creatinine Ratio 11.2 (6-22) Glucose 175 H (70-100) mg/dL Calcium 9.4 (8.4-10.2) mg/dL Magnesium 2.5 H (1.6-2.3) mg/dL Prolactin 4.8 (3.7-17.9) ng/mL SARS-CoV-2 (PCR) Negative (Negative) Point of Care Testing Glucose POC 216 MDM Narrative Medical decision making narrative: It appears that the patient had a seizure but seems to have recovered from it. He was given IV Keppra. He did have an episode of vomiting and then had another seizure here in the emergency department. Lasted approximately 20 seconds. Did resolve on its own. He did receive 2 mg of Ativan. Was postictal afterwards. Was somnolent afterwards most likely from the seizure and also the Ativan. Patient does have leukocytosis however I suspect this is stress reaction secondary to the seizure. Care turned over to Dr. Briggs to continue to observe until patient becomes more alert oriented. Patient states he does have his medication at home and does not need a refill. Discharge Plan Departure Referrals: Fatmata Duong MD [Primary Care Provider] -
[2021-09-19 14:15] LABS: BUN Creatinine Ratio 11.2 (6-22); Blood Urea Nitrogen 11 mg/dL (9-20); Calcium 9.4 mg/dL (8.4-10.2); Carbon Dioxide 20 mmol/L (22-32); Chloride 108 mmol/L (98-107); Estimated Glomerular Filt Rate > 60.0 mL/min (>60); Glucose 175 mg/dL (70-100); HEMOLYSIS 25 (0-50); Magnesium 2.5 mg/dL (1.6-2.3); Potassium 3.6 mmol/L (3.4-5.1); Sodium 141 mmol/L (137-145)
[2021-09-19] MEDS: levETIRAcetam 1,000 MG in SODIUM CHLORIDE 0.9% 100 ML 440 ML IV ×2 (14:16→22:13)
[2021-09-19] MEDS: ACETAMINOPHEN 325 MG TABLET 650 MG PO (14:17)
[2021-09-19 14:28] LABS: Add Manual Diff / Slide Review NO; Basophils Absolute Auto 0 /uL (0-100); Basophils Percent Auto 0.1 % (0-2); Eosinophils Absolute Auto 0 /uL (0-450); Hematocrit 41.5 % (41-53); Lymphocytes Absolute Auto 900 /uL (1100-4500); Lymphocytes Percent Auto 4.2 % (25-40); Mean Corpuscular HGB Conc 33.8 % (30-36); Mean Corpuscular Volume 85.9 fL (80-100); Monocytes Absolute Auto 1400 /uL (0-900); Monocytes Percent Auto 6.7 % (3-14); Neutrophils Absolute Auto 18300 /uL (1500-7000); Platelet Count 223 X10^3/uL (150-400); Red Blood Cell Count 4.83 X10^6/uL (4.5-5.9); Red Cell Distribution Width 13.6 % (11.6-14.8); White Blood Cell Count 20.6 X10^3/uL (4.5-11.0)
[2021-09-19 14:30] LABS: Prolactin 4.8 ng/mL (3.7-17.9)
--- NOTE | 2021-09-19 15:05 | PC.NURSE ---
Patient reports has not taken his keppra in several days. Has known seizure disorder. States he forgot to take it. Denies any aura. Last seen normal at around 12pm. Found by sister around 1315 on [address] postictal. No obvious injuries, presumed seizure. EMS reports pinpoint pupils, so they gave him narcan with no change in response. Able to answer questions appropriately at this time. Mom at [facility].e
--- NOTE | 2021-09-19 15:08 | PC.NURSE ---
Pt vomited,Dr Loera aware,ordered 4mg zofran IV. Just as zofran was getting ready to be given pt began seizing. Dr Loera in room,ordered 2mg Ativan IV. Both meds given
[2021-09-19] MEDS: ONDANSETRON 4 MG/2 ML INJ IV ×2 (15:11→22:48)
[2021-09-19] MEDS: LORazepam 2 MG/ML INJ IV (15:11)
[2021-09-19 16:25] LABS: COVID19 -Nasal RAPID Negative (Negative)
--- NOTE | 2021-09-19 18:27 | PC.NURSE ---
1515 Patient seized while I was present in room, Dr. Loera at bedside providing jaw thrust due to O2 dropping to 78% on RA. I placed him on a non rebreather at 15L O2 and O2 Saturation quickly rony to 100% after about 15-20 seconds. Patient seized for 1-2 minutes then remained postictal. Given 2mg ativan and 4mg zofran IV. Mom at bedside. Patient on CO2 monitoring.
--- NOTE | 2021-09-19 18:29 | PC.NURSE ---
1800 Patient incontinent to urine and vomited on self. At this time Marlen Fernandes Rn and I changed the patient's clothing and cleaned him up. Patient remains post ictal and unable to follow commands.
--- NOTE | 2021-09-19 20:05 | DI.CT.S_ITS ---
P in ROCEDURE: CT HEAD/BRAIN WO CON INDICATIONS: seizure, hx of seizures TECHNIQUE: Noncontrast 4.5 mm thick angled axial sections acquired from the foramen magnum to the vertex, with coronal and sagittal reformats. For radiation dose reduction, the following was used: automated exposure control, adjustment of mA and/or kV according to patient size. COMPARISON: [facility], CT, CT HEAD/BRAIN WO CON, 06/30/2021, 11:03. FINDINGS: Image quality: Excellent. CSF spaces: Basal cisterns are patent. No extra-axial fluid collections. Ventricles are normal in size and shape. Brain: No midline shift. No intracranial masses or hemorrhage. Aggarwal-white matter interface is normal. Skull and face: Calvarium and visualized facial bones are intact, without suspicious lesions. Sinuses: Visualized sinuses and mastoids are clear. IMPRESSION: No acute intracranial process. Dictated by: Chandan Argueta M.D. on 09/19/2021 at 20:44 Approved by: Chandan Argueta M.D. on 09/19/2021 at 20:45
--- NOTE | 2021-09-19 20:05 | DI.RAD.S_ITS ---
PROCEDURE: XR CHEST 1V INDICATIONS: seizure, hx of seizure TECHNIQUE: One view of the chest was acquired. COMPARISON: None. FINDINGS: Surgical changes and devices: None. Lungs and pleura: Lungs are clear. No pleural effusions or pneumothorax. Mediastinum: Mediastinal contours appear normal. Heart size is normal. Bones and chest wall: No suspicious bony lesions. Overlying soft tissues appear unremarkable. IMPRESSION: No acute disease. Dictated by: Chandan Argueat M.D. on 09/19/2021 at 21:00 Approved by: Chandan Argueta M.D. on 09/19/2021 at 21:01
[2021-09-19 20:29] LABS: Ethanol (ETOH) < 10 mg/dL
[2021-09-19] MEDS: SODIUM CHLORIDE 0.9% 1,000 ML 1000 ML IV (20:52)
[2021-09-19] MEDS: FOSPHENYTOIN IV (22:39)
[2021-09-19] MEDS: SODIUM CHLORIDE 0.9% IV (22:39)
--- NOTE | 2021-09-19 22:42 | DI.CT.S_ITS ---
PROCEDURE: CT ABDOMEN PELVIS W CON INDICATIONS: vomiting TECHNIQUE: After the administration of oral and IV contrast, axial sections were acquired from the lung bases to the pubic symphysis. Coronal and sagittal reformats were performed. For radiation dose reduction, the following was used: automated exposure control, adjustment of mA and/or kV according to patient size. COMPARISON: [facility], CT, CT HEAD/BRAIN WO CON, 09/19/2021, 20:13. [facility], CR, XR CHEST 1V, 09/19/2021, 20:13. [facility], CT, CT ABDOMEN PELVIS W CON, 06/30/2021, 17:06. FINDINGS: Image quality: Excellent. Lung bases: Unremarkable. Heart: No significant findings. ABDOMEN: Liver: Incidental note is made of focal fatty infiltration adjacent to the falciform ligament, which is not regarded to be pathologic. Gallbladder: Unremarkable. Biliary ducts: Unremarkable. Pancreas: Unremarkable. Spleen: Unremarkable. Adrenal Glands: Unremarkable. Kidneys and Ureters: Unremarkable. Stomach and Bowel: Generalized moderate wall thickening can be seen of the colon, which begins at the level of the cecum and continues through the descending colon, with mild involvement of the sigmoid. Minimal to mild surrounding inflammatory changes are seen. No abscess. A normal appendix is seen. No right lower quadrant inflammatory changes are seen. No dilated loops of small bowel are seen. Peritoneum: No abnormal intraperitoneal fluid. No free air. Ventral Wall: No hernia. Abdominal Nodes: No retroperitoneal or mesenteric adenopathy by size criteria. Vessels: Aorta and inferior vena cava are normal in size. PELVIS: Pelvic Organs: Unremarkable. Bladder: Unremarkable. Pelvic Nodes: No enlarged lymph nodes. Miscellaneous: No inguinal hernias are seen. Bones: This patient has transitional lumbar anatomy. For the purposes of this examination, the level with the tiny vestigial ribs is considered to be T12. By this numbering scheme, the L5 level is transitional and partially sacralized. IMPRESSION: Moderate generalized colonic wall thickening can be seen. Please correlate with potential infectious and inflammatory causes of colitis, including C. difficile colitis. No findings of perforation or abscess can be seen. No dilated loops of small bowel are seen. Normal appendix. Incidental note is made of: Transitional lumbar anatomy Dictated by: Shaji Villanueva M.D. on 09/19/2021 at 22:35 Approved by: Shaji Villanueva M.D. on 09/19/2021 at 22:39
[2021-09-20] VITALS (17 sets, daily range): BP systolic 104–126; BP diastolic 54–74; PULSE 66–107; RESP 16–21; TEMP 36.7–37.8; O2SAT 97–100; BMI 20.9
[2021-09-20] MEDS: ONDANSETRON 4 MG/2 ML INJ IV (01:56)
[2021-09-20 02:07] LABS: UR Morphine/Opiate cutoff 300 Negative (Negative); Ur Creatinine Normal (Normal); Ur Specific Gravity Normal (Normal); Urine Amphetamines Negative (Negative); Urine Barbiturates Negative (Negative); Urine Benzodiazepines Negative (Negative); Urine Cocaine Negative (Negative); Urine MDMA Negative (Negative); Urine Methadone Negative (Negative); Urine Methamphetamines Negative (Negative); Urine Oxycodone Negative (Negative); Urine Phencyclidine Negative (Negative); Urine Tetrahydrocannabinol Positive (Negative); Urine Tricyclic Antidepressant Negative (Negative); Urine pH Normal (Normal)
[2021-09-20 02:18] LABS: Bacteria Urine Occasional (0-1); Culture Indicated Urine Cult Not Indicated; RBC Urine 0-1/HPF (0-5/HPF); Squamous Epithelial Cell Urine 0-1 /HPF (0-5/HPF); WBC Urine 0-1/HPF (0-5/HPF)
[2021-09-20 02:19] LABS: Uric Acid Crystals Urine Moderate
--- NOTE | 2021-09-20 03:22 | ED_ITS ---
HPI - Seizure General Chief Complaint: Seizure Stated Complaint: seizure Time Seen by Provider: 09/19/21 13:43 Source: patient Mode of arrival: EMS Limitations: no limitations Related Data Allergies Allergy/AdvReac Type Severity Reaction Status Date / Time No Known Drug Allergies Allergy Verified 09/19/21 13:38 Review of Systems Constitutional Constitutional: Reports headache(s) ENT Ears, Nose, Mouth, and Throat: Reports headache(s) Neurologic Neurologic: Reports headache(s) Patient History Medical History Seizure disorder Social History household members: family Smoking Status: Current every day smoker Smoking Status: Current every day smoker alcohol intake frequency: holidays/special occasions only Substance Use Type: does not use Exam Initial Vital Signs Initial Vital Signs: Vital Signs Temperature 97.5 F L 09/19/21 13:32 Pulse Rate 85 09/19/21 13:32 Respiratory Rate 13 09/19/21 13:32 Blood Pressure 142/87 H 09/19/21 13:32 Pulse Oximetry 96 09/19/21 13:32 Course Orders Ordered: ED Orders 09/19/21 22:42 CT abdomen pelvis w con Stat 09/20/21 01:52 Urine Drug Screen, Rapid Stat Urine Microscopic Stat 09/20/21 03:42 Respiratory Panel (Film Array) Stat 09/20/21 03:44 Blood Culture Stat Lactate (Lactic Acid) Stat 09/20/21 03:53 MRSA PCR Stat Diphenhydramine HCl (Diphenhydramine 50 Mg/Ml Vial) 25 mg IV Q4HR PRN PRN Reason: Vomiting Lactated Ringer's (Lactated Ringers) 1,000 mls @ 100 mls/hr IV CONT MIKAELA Piperacillin Sod/Tazobactam (Sod 3.375 gm/ Sodium Chloride) 100 mls @ 25 mls/hr IV Q8H MIKAELA Naloxone HCl (Naloxone 0.4 Mg/Ml Vial) 0.2 mg IV Q2MIN PRN PRN Reason: Opiate Reversal Ondansetron HCl (Ondansetron 4 Mg/2 Ml Inj) 4 mg IV Q8HR PRN PRN Reason: Nausea And Vomiting Pantoprazole Sodium (Pantoprazole 40 Mg Vial) 40 mg IV BID MIKAELA Discontinued Medications Acetaminophen (Acetaminophen 325 Mg Tablet) 650 mg PO NOW ONE Stop: 09/19/21 14:08 Last Admin: 09/19/21 14:17 Dose: 650 mg Documented by: CORTES Levetiracetam 1,000 mg/ Sodium (Chloride) 110 mls @ 440 mls/hr IV NOW ONE Stop: 09/19/21 13:46 Last Infusion: 09/19/21 14:38 Dose: 0 mls/hr Documented by: Admin: 09/19/21 14:16 Dose: 440 mls/hr Documented by: CORTES Sodium Chloride (Normal Saline 0.9%) 1,000 mls @ 1,000 mls/hr IV BOLUS ONE Stop: 09/19/21 21:33 Last Infusion: 09/20/21 00:46 Dose: 0 mls/hr Documented by: Admin: 09/19/21 20:52 Dose: 1,000 mls/hr Documented by: TONY Levetiracetam 1,000 mg/ Sodium (Chloride) 110 mls @ 440 mls/hr IV NOW ONE Stop: 09/19/21 21:50 Last Infusion: 09/19/21 22:31 Dose: 0 mls/hr Documented by: Admin: 09/19/21 22:13 Dose: 440 mls/hr Documented by: JULIA Fosphenytoin Sodium 750 mg/ (Sodium Chloride) 115 mls @ 230 mls/hr IV NOW ONE Stop: 09/19/21 22:08 Last Infusion: 09/19/21 23:05 Dose: 0 mls/hr Documented by: Admin: 09/19/21 22:39 Dose: 230 mls/hr Documented by: JULIA Piperacillin Sod/Tazobactam (Sod 4.5 gm/ Sodium Chloride) 100 mls @ 200 mls/hr IV NOW ONE Stop: 09/20/21 04:54 Lorazepam (Lorazepam 2 Mg/Ml Inj) 2 mg IV NOW ONE Stop: 09/19/21 15:11 Last Admin: 09/19/21 15:11 Dose: 2 mg Documented by: ROSALIND Ondansetron HCl (Ondansetron 4 Mg/2 Ml Inj) 4 mg IV NOW ONE Stop: 09/19/21 15:08 Last Admin: 09/19/21 15:11 Dose: 4 mg Documented by: ROSALIND Ondansetron HCl (Ondansetron 4 Mg/2 Ml Inj) 4 mg IV NOW ONE Stop: 09/19/21 22:48 Last Admin: 09/19/21 22:48 Dose: 4 mg Documented by: JULIA Ondansetron HCl (Ondansetron 4 Mg/2 Ml Inj) 4 mg IV NOW ONE Stop: 09/20/21 01:48 Last Admin: 09/20/21 01:56 Dose: 4 mg Documented by: JULIA Vital Signs Vital signs: Vital Signs - 8 hr 09/19/21 22:30 09/19/21 23:00 09/19/21 23:31 Temperature 99.9 F H Pulse Rate 89 95 H 105 H Blood Pressure 116/61 103/56 L Pulse Oximetry 100 100 100 09/20/21 00:00 09/20/21 00:31 09/20/21 00:45 Temperature Pulse Rate 107 H 104 H 94 H Blood Pressure 121/72 121/72 Pulse Oximetry 100 99 100 09/20/21 01:00 09/20/21 01:30 09/20/21 02:00 Temperature Pulse Rate 95 H 93 H 106 H Blood Pressure 104/54 L Pulse Oximetry 100 100 100 09/20/21 02:30 09/20/21 03:00 09/20/21 03:30 Temperature Pulse Rate 88 88 83 Blood Pressure Pulse Oximetry 98 98 100 09/20/21 04:00 Temperature Pulse Rate 78 Blood Pressure Pulse Oximetry 99 MDM - Seizure Lab Data Result diagrams: 09/19/21 14:10 09/19/21 13:54 Labs: Lab Results 09/19/21 09/19/21 09/19/21 Range/Units 13:54 13:54 14:10 WBC 20.6 H (4.5-11.0) X10^3/uL RBC 4.83 (4.5-5.9) X10^6/uL Hgb 14.0 (13.5-17.5) g/dL Hct 41.5 (41-53) % MCV 85.9 (80-100) fL MCH 29.0 (26-34) PG MCHC 33.8 (30-36) % RDW 13.6 (11.6-14.8) % Plt Count 223 (150-400) X10^3/uL Neut % (Auto) 89.0 H (50-75) % Lymph % (Auto) 4.2 L (25-40) % [place] % (Auto) 6.7 (3-14) % Eos % (Auto) 0.0 L (2-4) % Baso % (Auto) 0.1 (0-2) % Neut # (Auto) 94805 H (3771-2440) /uL Lymph # (Auto) 900 L (1815-2676) /uL [place] # (Auto) 1400 H (0-900) /uL Eos # (Auto) 0 (0-450) /uL Baso # (Auto) 0 (0-100) /uL Sodium 141 (137-145) mmol/L Potassium 3.6 (3.4-5.1) mmol/L Chloride 108 H (98-107) mmol/L Carbon Dioxide 20 L (22-32) mmol/L BUN 11 (9-20) mg/dL Creatinine 0.98 (0.66-1.25) mg/dL Estimated GFR > 60.0 (>60) mL/min BUN/Creatinine Ratio 11.2 (6-22) Glucose 175 H (70-100) mg/dL Lactate (0.7-2.1) mmol/L Calcium 9.4 (8.4-10.2) mg/dL Magnesium 2.5 H (1.6-2.3) mg/dL Prolactin 4.8 (3.7-17.9) ng/mL Urine RBC (0-5/HPF) Urine WBC (0-5/HPF) Ur Squamous Epith Cells (0-5/HPF) Uric Acid Crystals (None) Urine Bacteria (None) Ur Culture Indicated? Nasal Screen MRSA (PCR) (Negative) U Opiates 300ng/mL cut (Negative) Ur Oxycodone Screen (Negative) Urine Methadone Screen (Negative) Ur Barbiturates Screen (Negative) U Tricyclic Antidepress (Negative) Ur Phencyclidine Scrn (Negative) Ur Amphetamines Screen (Negative) U Methamphetamines Scrn (Negative) Ur MDMA Scrn (Ecstasy) (Negative) U Benzodiazepines Scrn (Negative) Urine Cocaine Screen (Negative) U Marijuana (THC) Screen (Negative) Ethyl Alcohol < 10 ( - 10) mg/dL Chlamy pneumoniae PCR (Not Detect) Adenovirus (PCR) (Not Detect) B. pertussis DNA (PCR) (Not Detecte) B.parapertussis DNA PCR (Not Detecte) Coronavirus OC43 (PCR) (Not Detect) Coronavirus HKU1 (PCR) (Not Detect) Coronavirus 229E (PCR) (Not Detect) SARS-CoV-2 (PCR) (Negative) Coronavirus NL63 (PCR) (Not Detect) Human Metapneumovir PCR (Not Detect) Influenza Type A (PCR) (Not Detect) Influenza Type B (PCR) (Not Detect) M. pneumoniae (PCR) (Not Detect) Parainfluenza 1 (PCR) (Not Detect) Parainfluenza 2 (PCR) (Not Detect) Parainfluenza 3 (PCR) (Not Detect) Parainfluenza 4 (PCR) (Not Detect) RSV (PCR) (Not Detect) Entero/Rhino (PCR) (Not Detect) 09/19/21 09/20/21 09/20/21 Range/Units 15:14 01:52 01:52 WBC (4.5-11.0) X10^3/uL RBC (4.5-5.9) X10^6/uL Hgb (13.5-17.5) g/dL Hct (41-53) % MCV (80-100) fL MCH (26-34) PG MCHC (30-36) % RDW (11.6-14.8) % Plt Count (150-400) X10^3/uL Neut % (Auto) (50-75) % Lymph % (Auto) (25-40) % [place] % (Auto) (3-14) % Eos % (Auto) (2-4) % Baso % (Auto) (0-2) % Neut # (Auto) (1008-0877) /uL Lymph # (Auto) (2179-8700) /uL [place] # (Auto) (0-900) /uL Eos # (Auto) (0-450) /uL Baso # (Auto) (0-100) /uL Sodium (137-145) mmol/L Potassium (3.4-5.1) mmol/L Chloride (98-107) mmol/L Carbon Dioxide (22-32) mmol/L BUN (9-20) mg/dL Creatinine (0.66-1.25) mg/dL Estimated GFR (>60) mL/min BUN/Creatinine Ratio (6-22) Glucose (70-100) mg/dL Lactate (0.7-2.1) mmol/L Calcium (8.4-10.2) mg/dL Magnesium (1.6-2.3) mg/dL Prolactin (3.7-17.9) ng/mL Urine RBC 0-1/hpf (0-5/HPF) Urine WBC 0-1/hpf (0-5/HPF) Ur Squamous Epith Cells 0-1 /hpf (0-5/HPF) Uric Acid Crystals Moderate H (None) Urine Bacteria Occasional (0-1) (None) Ur Culture Indicated? Cult not indicated Nasal Screen MRSA (PCR) (Negative) U Opiates 300ng/mL cut Negative (Negative) Ur Oxycodone Screen Negative (Negative) Urine Methadone Screen Negative (Negative) Ur Barbiturates Screen Negative (Negative) U Tricyclic Antidepress Negative (Negative) Ur Phencyclidine Scrn Negative (Negative) Ur Amphetamines Screen Negative (Negative) U Methamphetamines Scrn Negative (Negative) Ur MDMA Scrn (Ecstasy) Negative (Negative) U Benzodiazepines Scrn Negative (Negative) Urine Cocaine Screen Negative (Negative) U Marijuana (THC) Screen Positive H (Negative) Ethyl Alcohol ( - 10) mg/dL Chlamy pneumoniae PCR (Not Detect) Adenovirus (PCR) (Not Detect) B. pertussis DNA (PCR) (Not Detecte) B.parapertussis DNA PCR (Not Detecte) Coronavirus OC43 (PCR) (Not Detect) Coronavirus HKU1 (PCR) (Not Detect) Coronavirus 229E (PCR) (Not Detect) SARS-CoV-2 (PCR) Negative (Negative) Coronavirus NL63 (PCR) (Not Detect) Human Metapneumovir PCR (Not Detect) Influenza Type A (PCR) (Not Detect) Influenza Type B (PCR) (Not Detect) M. pneumoniae (PCR) (Not Detect) Parainfluenza 1 (PCR) (Not Detect) Parainfluenza 2 (PCR) (Not Detect) Parainfluenza 3 (PCR) (Not Detect) Parainfluenza 4 (PCR) (Not Detect) RSV (PCR) (Not Detect) Entero/Rhino (PCR) (Not Detect) 09/20/21 09/20/21 09/20/21 Range/Units 03:42 03:44 03:53 WBC (4.5-11.0) X10^3/uL RBC (4.5-5.9) X10^6/uL Hgb (13.5-17.5) g/dL Hct (41-53) % MCV (80-100) fL MCH (26-34) PG MCHC (30-36) % RDW (11.6-14.8) % Plt Count (150-400) X10^3/uL Neut % (Auto) (50-75) % Lymph % (Auto) (25-40) % [place] % (Auto) (3-14) % Eos % (Auto) (2-4) % Baso % (Auto) (0-2) % Neut # (Auto) (8167-7425) /uL Lymph # (Auto) (1526-8490) /uL [place] # (Auto) (0-900) /uL Eos # (Auto) (0-450) /uL Baso # (Auto) (0-100) /uL Sodium (137-145) mmol/L Potassium (3.4-5.1) mmol/L Chloride (98-107) mmol/L Carbon Dioxide (22-32) mmol/L BUN (9-20) mg/dL Creatinine (0.66-1.25) mg/dL Estimated GFR (>60) mL/min BUN/Creatinine Ratio (6-22) Glucose (70-100) mg/dL Lactate 1.2 (0.7-2.1) mmol/L Calcium (8.4-10.2) mg/dL Magnesium (1.6-2.3) mg/dL Prolactin (3.7-17.9) ng/mL Urine RBC (0-5/HPF) Urine WBC (0-5/HPF) Ur Squamous Epith Cells (0-5/HPF) Uric Acid Crystals (None) Urine Bacteria (None) Ur Culture Indicated? Nasal Screen MRSA (PCR) Negative for mrsa (Negative) U Opiates 300ng/mL cut (Negative) Ur Oxycodone Screen (Negative) Urine Methadone Screen (Negative) Ur Barbiturates Screen (Negative) U Tricyclic Antidepress (Negative) Ur Phencyclidine Scrn (Negative) Ur Amphetamines Screen (Negative) U Methamphetamines Scrn (Negative) Ur MDMA Scrn (Ecstasy) (Negative) U Benzodiazepines Scrn (Negative) Urine Cocaine Screen (Negative) U Marijuana (THC) Screen (Negative) Ethyl Alcohol ( - 10) mg/dL Chlamy pneumoniae PCR Not detected (Not Detect) Adenovirus (PCR) Not detected (Not Detect) B. pertussis DNA (PCR) Not detected (Not Detecte) B.parapertussis DNA PCR Not detected (Not Detecte) Coronavirus OC43 (PCR) Not detected (Not Detect) Coronavirus HKU1 (PCR) Not detected (Not Detect) Coronavirus 229E (PCR) Not detected (Not Detect) SARS-CoV-2 (PCR) Not detected (Negative) Coronavirus NL63 (PCR) Not detected (Not Detect) Human Metapneumovir PCR Not detected (Not Detect) Influenza Type A (PCR) Not detected (Not Detect) Influenza Type B (PCR) Not detected (Not Detect) M. pneumoniae (PCR) Not detected (Not Detect) Parainfluenza 1 (PCR) Not detected (Not Detect) Parainfluenza 2 (PCR) Not detected (Not Detect) Parainfluenza 3 (PCR) Not detected (Not Detect) Parainfluenza 4 (PCR) Not detected (Not Detect) RSV (PCR) Not detected (Not Detect) Entero/Rhino (PCR) Not detected (Not Detect) Point of Care Testing Glucose POC 216 Urine Dip Bedside Urine Glucose Negative Bedside Urine Bilirubin - Negative Bedside Urine Ketone - Negative Urine Specific [place] 1.020 Bedside Urine Occult Blood +/- Bedside Urine pH 6.0 Bedside Urine Protein ++ 100 Bedside Urine Urobilinogen - Negative Bedside Urine Nitrite - Negative Bedside Urine Leukocytes - Negative Esterase Discharge Plan Departure Patient Disposition: Admitted as Observation Clinical Impression: Seizure, Vomiting Admit Date/Time: 09/20/21 04:12 Admit Provider: Callie Page
[2021-09-20 04:24] LABS: Lactate (Lactic Acid) 1.2 mmol/L (0.7-2.1)
[2021-09-20 04:44] LABS: Adenovirus Not Detected (Not Detect); B. parapertussis Not Detected (Not Detecte); Bordetella pertussis Not Detected (Not Detecte); Chlamydophila pneumoniae Not Detected (Not Detect); Coronavirus 229E Not Detected (Not Detect); Coronavirus HKU1 Not Detected (Not Detect); Coronavirus NL 63 Not Detected (Not Detect); Coronavirus OC43 Not Detected (Not Detect); Human Metapneumovirus Not Detected (Not Detect); Human Rhinovirus/Enterovirus Not Detected (Not Detect); Influenza A Not Detected (Not Detect); Influenza B Not Detected (Not Detect); Mycoplasma pneumoniae Not Detected (Not Detect); Parainfluenza Virus 1 Not Detected (Not Detect); Parainfluenza Virus 2 Not Detected (Not Detect); Parainfluenza Virus 3 Not Detected (Not Detect); Parainfluenza Virus 4 Not Detected (Not Detect); Respiratory Syncytial Virus Not Detected (Not Detect); SARS- CoV-2 Not Detected (Not Detecte)
[2021-09-20] MEDS: PIPERACILLIN/TAZO 4.5 GM in SODIUM CHLORIDE 0.9% 100 ML 200 ML IV (06:40)
[2021-09-20] MEDS: LACTATED RINGERS 1,000 ML 100 ML IV (06:40)
[2021-09-20 07:47] LABS: Add Manual Diff / Slide Review NO; Basophils Absolute Auto 0 /uL (0-100); Basophils Percent Auto 0.2 % (0-2); Eosinophils Absolute Auto 0 /uL (0-450); Hemoglobin 12.2 g/dL (13.5-17.5); Lymphocytes Absolute Auto 1300 /uL (1100-4500); Lymphocytes Percent Auto 6.9 % (25-40); Mean Corpuscular Hemoglobin 28.8 PG (26-34); Mean Corpuscular Volume 84.7 fL (80-100); Monocytes Absolute Auto 1300 /uL (0-900); Monocytes Percent Auto 6.9 % (3-14); Neutrophils Absolute Auto 16000 /uL (1500-7000); Platelet Count 204 X10^3/uL (150-400); Red Blood Cell Count 4.26 X10^6/uL (4.5-5.9); Red Cell Distribution Width 13.8 % (11.6-14.8); White Blood Cell Count 18.6 X10^3/uL (4.5-11.0)
[2021-09-20 07:59] LABS: BUN Creatinine Ratio 6.6 (6-22); Blood Urea Nitrogen 22 mg/dL (9-20); Calcium 8.8 mg/dL (8.4-10.2); Carbon Dioxide 20 mmol/L (22-32); Chloride 108 mmol/L (98-107); Estimated Glomerular Filt Rate 22.9 mL/min (>60); Glucose 120 mg/dL (70-100); HEMOLYSIS < 15 (0-50); Magnesium 2.3 mg/dL (1.6-2.3); Potassium 3.8 mmol/L (3.4-5.1); Sodium 141 mmol/L (137-145)
[2021-09-20 08:02] LABS: Hemoglobin A1C% w Est Avg Glu 4.9 % (4.0-6.0)
[2021-09-20 08:35] LABS: Procalcitonin 1.93 ng/mL (<0.5)
[2021-09-20] MEDS: PANTOPRAZOLE 40 MG VIAL IV (08:57)
--- NOTE | 2021-09-20 09:38 | CM.DANOTE ---
Patient is a 25 yo male who was admitted on 09/20/21 for Seizure. Pt has [employer] and [employer] for insurance and his PCP is Fatmata Duong. EMR was reviewed. 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 Pt had another while in the ED but resolved and no further seizure activity noted but pt admitted as he was nauseous and vomiting and could not tolerate oral PO for medications. Per RN pt is currently still only on sips and drips and diet has not been advanced yet but pt denies any nausea and therefore MD will likely order to advance his diet. SW met bedside with pt and mother and explained role and pt confirms that he lives in [place] with his family and is independent at baseline but does not work currently and has been doing some college. Pt denies any hx of HH or SNF and he and his mother do not anticipate any needs at d/c and family will be available for assist and monitoring once home and pt is established with his Neurologist. Plan: SW to follow for advancing diet to confirm pt can tolerate orals and then likely home via mother POV and assist. SANTHOSH Ahuja Discharge Planning/Care Management CM Discharge Assessment Start: 09/20/21 09:36 Freq: Status: Active Protocol: Document 09/20/21 09:37 BF (Rec: 09/20/21 09:38 BF [id number]) Discharge Planning Assessment Assigned Crew Car Driver SANTHOSH Obando DPOA/Assigned Designee Name informally mother Ginger Contact Information [phone] Advance Directives? No Advance Directives on File No History Provided By Patient,Family Member,Medical Record Has Patient been admitted in last 30 No days? Prior Living Arrangements House Household Members family Type of transporation used prior to Drives own vehicle admit Independent with ADL's Yes Is patient alert and oriented? Yes Caregiver for Another No Barriers to Discharge No Discharge Plan Home Transportation Arrangement mother bedside and can transport at d/c Referrals Initiated None needed Whiteboard Updated in Patient Room with Yes name and ext. # of Crew Car Driver Review Status In Process Please Provide Date Initial DC 09/20/21 Assessment Was Performed Next Review Type Continued Stay Review
[2021-09-20] MEDS: levETIRAcetam 250 MG TABLET 1000 MG PO (15:29)
--- NOTE | 2021-09-20 17:44 | P.HP_ITS ---
History of Present Illness History of Present Illness Chief complaint: seizure Narrative: 25yo male with a hx of bipolar disorder and seizure disorder that presented with seizure at home. The patient was found by his sister, whom he lives with, having an active seizure. When his sister found him, he was on the kitchen floor, on his right side, foaming at the mouth, and responsive with yes/no twitches, according to the sister, when she was asking him questions. He had also lost control of his bladder at the time, but not his bowel. The entire episode lasted approx 2-3 minutes. The patient was confused afterward and does not recall the event. The sister called EMS who brought the patient to our ER. The pt freely admits to having forgotten to take his home Keppra over the last 3-4 days. He denies that this happens often. He reports being first diagnosed with seizures approximately 1.5-2 yrs ago. He follows with a neurologist outpatient. He denies smoking tobaccco, drinking EtOH. However, he does admit to vaping marijuana daily. He denies any pattern of association between his THC use and seizure episodes. He denies ever having to be intubated for a seizure. The patient denies fever/chills, recent URI sxs, cough, CP, SOB, recent falls, recent head trauma, recent travel. PSH is positive for tonsil removal as a child. He lives at home with his mother and sister. He denies being currently employed. Patient History Medical History Seizure disorder Family & Social History Social History: household members family Prior Living Arrangements House Safety & Behavioral: Feels Safe in Current Yes Environment Been Physically Hurt or No Threatened By a Person Suicidal Ideation Description None Suicide Plan Description No Plan Tobacco & Substance use: Smoking Status Current every day smoker alcohol intake frequency holiday/special occasion Substance Use Type does not use Meds Home Medications and Allergies Home Medications Medication Instructions Recorded Confirmed Type aripiprazole 5 mg tablet 5 mg PO DAILY 09/20/21 09/20/21 History escitalopram oxalate 10 mg tablet 10 mg PO DAILY 09/20/21 09/20/21 History levetiracetam 500 mg 1,000 mg PO QAM 09/20/21 09/20/21 History tablet,extended release 24 hr levetiracetam 500 mg 1,500 mg PO QPM 09/20/21 09/20/21 History tablet,extended release 24 hr trazodone 100 mg tablet 100 mg PO BEDTIME 09/20/21 09/20/21 History Allergies Allergy/AdvReac Type Severity Reaction Status Date / Time No Known Drug Allergies Allergy Verified 09/19/21 13:38 Review of Systems Constitutional Comments: Denies fever/chills, URI sxs, appetite loss. Eyes Comments: Denies vision changes. Cardiovascular Comments: Denies CP, SOB, palpitations, peripheral edema. Gastrointestinal Comments: Denies abd pain, n/v/d, flank pain. Genitourinary Comments: Endorses one-time urinary incontinence during seizure episode. Denies dysuria, urgency. Neurologic Comments: Endorses recent seizure activity. Denies confusion, headache. Exam Vital Signs (past 8 hours): - 09/20/21 15:11 09/20/21 16:30 Temperature 99.1 F 100.1 F H Pulse Rate 77 66 Respiratory Rate 21 21 Blood Pressure 116/64 114/61 Pulse Oximetry 100 100 Oxygen Delivery Method Room Air Oxygen Flow Rate 0 Const Other: Patient is laying in bed comfortably upon my entering the room with his mother at bedside, and he does not appear in acute distress. Neck Other: No carotid bruits appreciated. Resp Other: Clear to auscultation bilaterally. Cardio Other: Regular rate and rhythm. S1 and S2 heart sounds auscultated with no extra heart sounds or murmurs appreciated. No peripheral edema appreciated. GI Other: Soft, non-tender, non-distended. Bowel sounds present. Neuro Other: CN II-XII intact. No focal neurological deficits appreciated. Extrem Other: Palpable and equal radial and dorsalis pedis pulses bilaterally. Objective Labs Result Diagrams: 09/20/21 07:10 09/20/21 07:10 Labs: Laboratory Results - last 24 hr 09/19/21 09/20/21 09/20/21 13:54 01:52 01:52 WBC RBC Hgb Hct MCV MCH MCHC RDW Plt Count Neut % (Auto) Lymph % (Auto) [place] % (Auto) Eos % (Auto) Baso % (Auto) Neut # (Auto) Lymph # (Auto) [place] # (Auto) Eos # (Auto) Baso # (Auto) Sodium Potassium Chloride Carbon Dioxide BUN Creatinine Estimated GFR BUN/Creatinine Ratio Glucose Hemoglobin A1c Lactate Calcium Magnesium Procalcitonin Urine RBC 0-1/hpf Urine WBC 0-1/hpf Ur Squamous Epith Cells 0-1 /hpf Uric Acid Crystals Moderate H Urine Bacteria Occasional (0-1) Ur Culture Indicated? Cult not indicated Nasal Screen MRSA (PCR) U Opiates 300ng/mL cut Negative Ur Oxycodone Screen Negative Urine Methadone Screen Negative Ur Barbiturates Screen Negative U Tricyclic Antidepress Negative Ur Phencyclidine Scrn Negative Ur Amphetamines Screen Negative U Methamphetamines Scrn Negative Ur MDMA Scrn (Ecstasy) Negative U Benzodiazepines Scrn Negative Urine Cocaine Screen Negative U Marijuana (THC) Screen Positive H Ethyl Alcohol < 10 Chlamy pneumoniae PCR Adenovirus (PCR) B. pertussis DNA (PCR) B.parapertussis DNA PCR Coronavirus OC43 (PCR) Coronavirus HKU1 (PCR) Coronavirus 229E (PCR) SARS-CoV-2 (PCR) Coronavirus NL63 (PCR) Human Metapneumovir PCR Influenza Type A (PCR) Influenza Type B (PCR) M. pneumoniae (PCR) Parainfluenza 1 (PCR) Parainfluenza 2 (PCR) Parainfluenza 3 (PCR) Parainfluenza 4 (PCR) RSV (PCR) Entero/Rhino (PCR) 09/20/21 09/20/21 09/20/21 03:42 03:44 03:53 WBC RBC Hgb Hct MCV MCH MCHC RDW Plt Count Neut % (Auto) Lymph % (Auto) [place] % (Auto) Eos % (Auto) Baso % (Auto) Neut # (Auto) Lymph # (Auto) [place] # (Auto) Eos # (Auto) Baso # (Auto) Sodium Potassium Chloride Carbon Dioxide BUN Creatinine Estimated GFR BUN/Creatinine Ratio Glucose Hemoglobin A1c Lactate 1.2 Calcium Magnesium Procalcitonin Urine RBC Urine WBC Ur Squamous Epith Cells Uric Acid Crystals Urine Bacteria Ur Culture Indicated? Nasal Screen MRSA (PCR) Negative for mrsa U Opiates 300ng/mL cut Ur Oxycodone Screen Urine Methadone Screen Ur Barbiturates Screen U Tricyclic Antidepress Ur Phencyclidine Scrn Ur Amphetamines Screen U Methamphetamines Scrn Ur MDMA Scrn (Ecstasy) U Benzodiazepines Scrn Urine Cocaine Screen U Marijuana (THC) Screen Ethyl Alcohol Chlamy pneumoniae PCR Not detected Adenovirus (PCR) Not detected B. pertussis DNA (PCR) Not detected B.parapertussis DNA PCR Not detected Coronavirus OC43 (PCR) Not detected Coronavirus HKU1 (PCR) Not detected Coronavirus 229E (PCR) Not detected SARS-CoV-2 (PCR) Not detected Coronavirus NL63 (PCR) Not detected Human Metapneumovir PCR Not detected Influenza Type A (PCR) Not detected Influenza Type B (PCR) Not detected M. pneumoniae (PCR) Not detected Parainfluenza 1 (PCR) Not detected Parainfluenza 2 (PCR) Not detected Parainfluenza 3 (PCR) Not detected Parainfluenza 4 (PCR) Not detected RSV (PCR) Not detected Entero/Rhino (PCR) Not detected 09/20/21 09/20/21 09/20/21 07:10 07:10 07:10 WBC 18.6 H RBC 4.26 L Hgb 12.2 L Hct 36.0 L MCV 84.7 MCH 28.8 MCHC 34.0 RDW 13.8 Plt Count 204 Neut % (Auto) 86.0 H Lymph % (Auto) 6.9 L [place] % (Auto) 6.9 Eos % (Auto) 0.0 L Baso % (Auto) 0.2 Neut # (Auto) 00406 H Lymph # (Auto) 1300 [place] # (Auto) 1300 H Eos # (Auto) 0 Baso # (Auto) 0 Sodium Potassium Chloride Carbon Dioxide BUN Creatinine Estimated GFR BUN/Creatinine Ratio Glucose Hemoglobin A1c 4.9 Lactate Calcium Magnesium Procalcitonin 1.93 H Urine RBC Urine WBC Ur Squamous Epith Cells Uric Acid Crystals Urine Bacteria Ur Culture Indicated? Nasal Screen MRSA (PCR) U Opiates 300ng/mL cut Ur Oxycodone Screen Urine Methadone Screen Ur Barbiturates Screen U Tricyclic Antidepress Ur Phencyclidine Scrn Ur Amphetamines Screen U Methamphetamines Scrn Ur MDMA Scrn (Ecstasy) U Benzodiazepines Scrn Urine Cocaine Screen U Marijuana (THC) Screen Ethyl Alcohol Chlamy pneumoniae PCR Adenovirus (PCR) B. pertussis DNA (PCR) B.parapertussis DNA PCR Coronavirus OC43 (PCR) Coronavirus HKU1 (PCR) Coronavirus 229E (PCR) SARS-CoV-2 (PCR) Coronavirus NL63 (PCR) Human Metapneumovir PCR Influenza Type A (PCR) Influenza Type B (PCR) M. pneumoniae (PCR) Parainfluenza 1 (PCR) Parainfluenza 2 (PCR) Parainfluenza 3 (PCR) Parainfluenza 4 (PCR) RSV (PCR) Entero/Rhino (PCR) 09/20/21 07:10 WBC RBC Hgb Hct MCV MCH MCHC RDW Plt Count Neut % (Auto) Lymph % (Auto) [place] % (Auto) Eos % (Auto) Baso % (Auto) Neut # (Auto) Lymph # (Auto) [place] # (Auto) Eos # (Auto) Baso # (Auto) Sodium 141 Potassium 3.8 Chloride 108 H Carbon Dioxide 20 L BUN 22 H Creatinine 3.33 H Estimated GFR 22.9 L BUN/Creatinine Ratio 6.6 Glucose 120 H Hemoglobin A1c Lactate Calcium 8.8 Magnesium 2.3 Procalcitonin Urine RBC Urine WBC Ur Squamous Epith Cells Uric Acid Crystals Urine Bacteria Ur Culture Indicated? Nasal Screen MRSA (PCR) U Opiates 300ng/mL cut Ur Oxycodone Screen Urine Methadone Screen Ur Barbiturates Screen U Tricyclic Antidepress Ur Phencyclidine Scrn Ur Amphetamines Screen U Methamphetamines Scrn Ur MDMA Scrn (Ecstasy) U Benzodiazepines Scrn Urine Cocaine Screen U Marijuana (THC) Screen Ethyl Alcohol Chlamy pneumoniae PCR Adenovirus (PCR) B. pertussis DNA (PCR) B.parapertussis DNA PCR Coronavirus OC43 (PCR) Coronavirus HKU1 (PCR) Coronavirus 229E (PCR) SARS-CoV-2 (PCR) Coronavirus NL63 (PCR) Human Metapneumovir PCR Influenza Type A (PCR) Influenza Type B (PCR) M. pneumoniae (PCR) Parainfluenza 1 (PCR) Parainfluenza 2 (PCR) Parainfluenza 3 (PCR) Parainfluenza 4 (PCR) RSV (PCR) Entero/Rhino (PCR) Assessment & Plan Assessment & Plan narrative: Assessment: 1. Seizure disorder 2. Hx of bipolar disorder 3. Hx of THC use Plan: 1. This seizure event likely occurred secondary to medication non-adherence, per HPI. The patient improved on Keppra in the ER. Will resume home Keppra inpatient. Seizure precautions in place. 2. Will resume home escitalopram 10 mg daily and aripiprazole 5 mg daily. 3. Counseling provided to patient. VTE prophylaxis: SCD's in place Disposition: Home, once clinically stable Time Spent With Patient Critical Care time: I spent a total of [] minutes of critical care time on this patient's care today; this time is exclusive of procedural time. Quality VTE Deep Vein Thrombosis/Pulmonary Embolism Present on Admission: No
[2021-09-20] MEDS: ARIPiprazole 10 MG TABLET 5 MG PO (18:16)
[2021-09-20] MEDS: ESCITALOPRAM 10 MG TABLET PO (18:17)
[2021-09-20] MEDS: levETIRAcetam 250 MG TABLET 1500 MG PO (21:00)
[2021-09-21] VITALS: BP 117/63; PULSE 75; RESP 18; TEMP 37.2; O2SAT 97; O2SAT 99
[2021-09-21 04:00] VITALS: BP 131/77; PULSE 85; RESP 18; TEMP 36.5; O2SAT 99
--- NOTE | 2021-09-21 05:38 | PC.NURSE ---
Patient stated they had a small episode emesis around 0330. Patient educated on importance of alerting care team when this occurs, if at all, in the future. Patient denied further presence of nausea and denied PRN medication.
[2021-09-21 06:13] LABS: Blood Urea Nitrogen 14 mg/dL (9-20); Calcium 8.9 mg/dL (8.4-10.2); Carbon Dioxide 23 mmol/L (22-32); Chloride 110 mmol/L (98-107); Estimated Glomerular Filt Rate 34.8 mL/min (>60); Glucose 115 mg/dL (70-100); HEMOLYSIS < 15 (0-50); Potassium 3.8 mmol/L (3.4-5.1); Sodium 142 mmol/L (137-145)
[2021-09-21 06:15] LABS: Add Manual Diff / Slide Review NO; Basophils Absolute Auto 0 /uL (0-100); Basophils Percent Auto 0.3 % (0-2); Eosinophils Absolute Auto 0 /uL (0-450); Hematocrit 33.9 % (41-53); Hemoglobin 11.7 g/dL (13.5-17.5); Lymphocytes Absolute Auto 1500 /uL (1100-4500); Lymphocytes Percent Auto 11.6 % (25-40); Mean Corpuscular HGB Conc 34.4 % (30-36); Mean Corpuscular Hemoglobin 29.4 PG (26-34); Mean Corpuscular Volume 85.4 fL (80-100); Monocytes Absolute Auto 1000 /uL (0-900); Neutrophils Absolute Auto 10400 /uL (1500-7000); Neutrophils Percent Auto 80.1 % (50-75); Platelet Count 182 X10^3/uL (150-400); Red Blood Cell Count 3.97 X10^6/uL (4.5-5.9); Red Cell Distribution Width 13.5 % (11.6-14.8)
[2021-09-21 08:24] LABS: Creatine Kinase 422 U/L (55-170)
[2021-09-21 08:30] VITALS: BP 133/84; BP 137/85; PULSE 70; PULSE 75; RESP 20; TEMP 37; O2SAT 100
[2021-09-21] MEDS: ARIPiprazole 10 MG TABLET 5 MG PO (08:57)
[2021-09-21] MEDS: SODIUM CHLORIDE 0.9% FLUSH 10 ML IV (08:58)
[2021-09-21] MEDS: ONDANSETRON 4 MG/2 ML INJ IV (08:58)
[2021-09-21] MEDS: ESCITALOPRAM 10 MG TABLET PO (08:58)
[2021-09-21] MEDS: levETIRAcetam 250 MG TABLET 1000 MG PO (08:58)
--- NOTE | 2021-09-21 10:08 | PC.NURSE ---
Addendum entered by Connie Doe R.N. 09/21/21 17:27: Went over dc instructions and medications with patient, questions answered. Patient taken via wc to vehicle driven by mom, patient had all belongings and patient given home medications stored in pharmacy. Addendum entered by Connie Doe R.N. 09/21/21 15:52: Patient denies reid and nausea at this time, reports no more emesis this afternoon, no needs at this time. Original Note: Patient requesting something for nausea, zofran given. Patient reports having emesis. Denies pain. Seizure precautions in place.
[2021-09-21 10:11] VITALS: O2SAT 100
[2021-09-21 13:40] VITALS: BP 127/71; PULSE 56; RESP 22; TEMP 36.9; O2SAT 100
--- NOTE | 2021-09-21 17:08 | P.PN_ITS ---
Subjective Subjective Interval history: Patient denies any recurrence of seizure-like activity this morning. He reports feeling well and wants to go home. Exam Vital Signs (past 8 hours): - 09/21/21 10:11 09/21/21 13:40 Temperature 98.5 F Pulse Rate 56 L Respiratory Rate 22 Blood Pressure 127/71 Pulse Oximetry 100 100 Oxygen Delivery Method Room Air Oxygen Flow Rate 0 Const Other: Patient sitting up in bed comfortably upon my entering the room, in no apparent acute distress. Eyes Other: No scleral icterus appreciated. Neck Other: No carotid bruits appreciated. Resp Other: Clear to auscultation bilaterally. Cardio Other: Regular rate and rhythm. S1 and S2 heart sounds auscultated without extra heart sounds or murmurs appreciated. No peripheral edema noted. GI Other: Soft, non-distended, non-tender. Bowel sounds present. Neuro Other: CN II-XII intact. No focal motor neurological deficits noted. Extrem Other: Equal and palplable dorsalis pedis pulses bilaterally. Objective Labs Result Diagrams: 09/21/21 05:50 09/21/21 05:50 Labs: Laboratory Results - last 24 hr 09/21/21 09/21/21 09/21/21 05:50 05:50 05:50 WBC 13.0 H RBC 3.97 L Hgb 11.7 L Hct 33.9 L MCV 85.4 MCH 29.4 MCHC 34.4 RDW 13.5 Plt Count 182 Neut % (Auto) 80.1 H Lymph % (Auto) 11.6 L Martin % (Auto) 8.0 Eos % (Auto) 0.0 L Baso % (Auto) 0.3 Neut # (Auto) 08085 H Lymph # (Auto) 1500 Martin # (Auto) 1000 H Eos # (Auto) 0 Baso # (Auto) 0 Sodium 142 Potassium 3.8 Chloride 110 H Carbon Dioxide 23 BUN 14 Creatinine 2.32 H Estimated GFR 34.8 L BUN/Creatinine Ratio 6.0 Glucose 115 H Calcium 8.9 Total Creatine Kinase 422 H PFSH Medical History Seizure disorder Social History household members: family Smoking Status: Current every day smoker Assessment & Plan Assessment & Plan narrative: Assessment: 1. Seizure disorder2. PAU, likely secondary to muscle breakdown post-seizure 3. Hx of bipolar disorder 4. Hx of THC use Plan: 1. This seizure event likely occurred secondary to medication non-adherence, per HPI. The patient improved on Keppra in the ER. Will resume home Keppra inpatient. Seizure precautions in place. 2. Cr improved with IV fluid hydration. CPK mildly elevated. Encouraged continued hydration at home. 3. Will resume home escitalopram 10 mg daily and aripiprazole 5 mg daily. 4. Counseling provided to patient. VTE prophylaxis: SCD's in place Disposition: Home today with close neurology follow-up Time Spent With Patient Critical Care time: I spent a total of [] minutes of critical care time on this patient's care today; this time is exclusive of procedural time. Quality VTE Deep Vein Thrombosis/Pulmonary Embolism Present on Admission: No
--- NOTE | 2021-09-21 17:13 | PM.DS.1 ---
History of Present Illness History of Present Illness Chief complaint: seizure Narrative: 25yo male with a hx of bipolar disorder and seizure disorder that presented with seizure at home. The patient was found by his sister, whom he lives with, having an active seizure. When his sister found him, he was on the kitchen floor, on his right side, foaming at the mouth, and responsive with yes/no twitches, according to the sister, when she was asking him questions. He had also lost control of his bladder at the time, but not his bowel. The entire episode lasted approx 2-3 minutes. The patient was confused afterward and does not recall the event. The sister called EMS who brought the patient to our ER. The pt freely admits to having forgotten to take his home Keppra over the last 3-4 days. He denies that this happens often. He reports being first diagnosed with seizures approximately 1.5-2 yrs ago. He follows with a neurologist outpatient. He denies smoking tobaccco, drinking EtOH. However, he does admit to vaping marijuana daily. He denies any pattern of association between his THC use and seizure episodes. He denies ever having to be intubated for a seizure. The patient denies fever/chills, recent URI sxs, cough, CP, SOB, recent falls, recent head trauma, recent travel. PSH is positive for tonsil removal as a child. He lives at home with his mother and sister. He denies being currently employed. Discharge Providers Provider Date of admission: 09/20/21 04:12 Discharge Date: 09/21/21 Primary care physician: Fatmata Duong MD Discharge provider: Colin Lloyd MD Summary Hospital Course Discharge Diagnosis: 1. Seizure disorder with active seizure at home 2. PAU, likely secondary to muscle breakdown post-seizure 3. Hx of bipolar disorder 4. Hx of THC use Hospital Course: 25yo male with a hx of seizure disorder that presented after having had a witnessed seizure at home. This likely occurred due to medication non-adherence, per patient's report. He received Keppra in the ER with good effect. There was no recurrent seizure activity inpatient. Patient discharged home without changes to his home anti-seizure regimen. He is due to follow-up with his neurologist in the next 2 weeks. Exam Vital Signs (past 8 hours): - 09/21/21 10:11 09/21/21 13:40 Temperature 98.5 F Pulse Rate 56 L Respiratory Rate 22 Blood Pressure 127/71 Pulse Oximetry 100 100 Oxygen Delivery Method Room Air Oxygen Flow Rate 0 Objective Labs Result Diagrams: 09/21/21 05:50 09/21/21 05:50 Labs: Laboratory Results - last 24 hr 09/21/21 09/21/21 09/21/21 05:50 05:50 05:50 WBC 13.0 H RBC 3.97 L Hgb 11.7 L Hct 33.9 L MCV 85.4 MCH 29.4 MCHC 34.4 RDW 13.5 Plt Count 182 Neut % (Auto) 80.1 H Lymph % (Auto) 11.6 L [place] % (Auto) 8.0 Eos % (Auto) 0.0 L Baso % (Auto) 0.3 Neut # (Auto) 43417 H Lymph # (Auto) 1500 [place] # (Auto) 1000 H Eos # (Auto) 0 Baso # (Auto) 0 Sodium 142 Potassium 3.8 Chloride 110 H Carbon Dioxide 23 BUN 14 Creatinine 2.32 H Estimated GFR 34.8 L BUN/Creatinine Ratio 6.0 Glucose 115 H Calcium 8.9 Total Creatine Kinase 422 H PFSH Medical History Seizure disorder Social History household members: family Smoking Status: Current every day smoker Discharge Assessment & Plan Assessment and Plan Assessment: Assessment: 1. Seizure disorder 2. PAU, likely secondary to muscle breakdown post-seizure 3. Hx of bipolar disorder 4. Hx of THC use Plan of Treatment: Plan: 1. This seizure event likely occurred secondary to medication non-adherence, per HPI. The patient improved on Keppra in the ER and resumption of his home antiepileptic meds. 2. Cr improved with IV fluid hydration. CPK mildly elevated. Encouraged continued hydration at home. 3. Will resume home escitalopram 10 mg daily and aripiprazole 5 mg daily. 4. Counseling provided to patient. Discharge Plan Discharge Plan Patient Disposition: Home Discharge orders & Medications Prescriptions: Continued trazodone 100 mg tablet 100 mg PO BEDTIME 0RF escitalopram oxalate 10 mg tablet 10 mg PO DAILY 0RF aripiprazole 5 mg tablet 5 mg PO DAILY 0RF levetiracetam 500 mg tablet extended release 24 hr 1,500 mg PO QPM 0RF levetiracetam 500 mg tablet extended release 24 hr 1,000 mg PO QAM 0RF Follow up/Referrals: Fatmata Duong MD [Primary Care Provider] - Discharge Data Primary Care Provider: Fatmata Duong Attending Provider: Callie Page VTE Deep Vein Thrombosis/Pulmonary Embolism Present on Admission: No
== END 2021-09-21 17:28 | disposition home or self-care (01) ==
LOC: ED 09-20 03:29 → AC 09-20 04:14
PROVIDERS: Emergency Medicine; Student in an Organized Health Care Education/Training Program; Admitting Provider Nurse Practitioner Family; Emergency Provider Emergency Medicine; PCP Psychiatry & Neurology Neurology; Referring Provider Emergency Medicine; Visit Provider Nurse Practitioner Family
DX: G40.909 Epilepsy, unspecified, not intractable, without status epilepticus (principal); N17.9 Acute kidney failure, unspecified; F17.210 Nicotine dependence, cigarettes, uncomplicated; Z20.822 Contact with and (suspected) exposure to COVID-19; F31.9 Bipolar disorder, unspecified; F12.90 Cannabis use, unspecified, uncomplicated
CPT/HCPCS: 36415; 70450; 71045; 74177; 80048; 80305; 80320; 81003; 81015; 82550; 82962; 83036; 83605; 83735; 84145; 84146; 85025; 87040; 87633; 87635; 87797; 94760; 96361; 96365; 96366; 96367; 96375; 96376; 99284; 99285; C9803; G0378; C9113; J1953; J2060; J2405; J2543; Q2009

== ENCOUNTER 2021-09-27 21:14 | Emergency (ER) | payer OTHER, MEDICAID, SELFPAY ==
[2021-09-20 04:23] VITALS: BMI 20.9
[2021-09-27 21:23] VITALS: BP 128/60; PULSE 60; RESP 18; TEMP 36.7; O2SAT 99
--- NOTE | 2021-09-27 21:26 | DI.RAD.S_ITS ---
PROCEDURE: XR FINGER LT MIN 2V INDICATIONS: injury one week ago TECHNIQUE: AP hand, 2 views of the 4th finger(s) acquired. COMPARISON: None. FINDINGS: Bones: Small avulsion fracture at the base of the 4th middle phalanx. The remaining visualized osseous structures appear maintained. Soft tissues: Edema about the 4th PIP. IMPRESSION: Small avulsion fracture at the base of the 4th middle phalanx. Dictated by: William Lucio M.D. on 09/27/2021 at 21:43 Approved by: William Lucio M.D. on 09/27/2021 at 21:44
--- NOTE | 2021-09-27 22:46 | ED.UPPEXIN ---
HPI - Extremity Injury (Upper) General Chief Complaint: Extremity Injury, Upper Stated Complaint: lt ring finger injury Time Seen by Provider: 09/27/21 22:40 Source: patient Mode of arrival: Ambulatory Limitations: no limitations History of Present Illness HPI narrative: Patient is a 25-year-old male history of seizure presenting with left ring finger injury. Says that he had a seizure last week must a bumped it on something it continues to be swollen but he is able to flex and extend. It is not red no fevers. No numbness tingling or weakness. Related Data Home Medications Medication Instructions Recorded Confirmed aripiprazole 5 mg tablet 5 mg PO DAILY 09/20/21 09/20/21 escitalopram oxalate 10 mg tablet 10 mg PO DAILY 09/20/21 09/20/21 levetiracetam 500 mg 1,000 mg PO QAM 09/20/21 09/20/21 tablet,extended release 24 hr levetiracetam 500 mg 1,500 mg PO QPM 09/20/21 09/20/21 tablet,extended release 24 hr trazodone 100 mg tablet 100 mg PO BEDTIME 09/20/21 09/20/21 Allergies Allergy/AdvReac Type Severity Reaction Status Date / Time No Known Drug Allergies Allergy Verified 09/19/21 13:38 Review of Systems Review of Systems Narrative: GENERAL: Denies chills,fever HEENT: Denies throat pain RESPIRATORY: Denies dyspnea, cough, wheezing CARDIOVASCULAR: Denies chest pain, palpitations GASTROINTESTINAL: Denies nausea, vomiting MUSCULOSKELETAL: See HPI SKIN: No rash, no laceration, no pruritus NEUROLOGIC: Denies weakness, dizziness, headache, numbness 8 point review of systems is negative except for those stated above and HPI Patient History Medical History Seizure disorder Social History household members: family Smoking Status: Current every day smoker Smoking Status: Current every day smoker alcohol intake frequency: holidays/special occasions only Substance Use Type: does not use Exam Initial Vital Signs Initial Vital Signs: Vital Signs Temperature 98.1 F 09/27/21 21:23 Pulse Rate 60 09/27/21 21:23 Respiratory Rate 18 09/27/21 21:23 Blood Pressure 128/60 09/27/21 21:23 Pulse Oximetry 99 09/27/21 21:23 GENERAL: Well-appearing, well-nourished and in no acute distress. CARDIOVASCULAR: peripheral pulses in tact, cap refill <2 sec RESPIRATORY: No respiratory distress, speaks in full sentences without difficulty EXTREMITIES: Left forth finger swelling at PE IP able to flex extend no erythema no numbness tingling or weakness NEUROLOGICAL: Cranial nerves II through XII grossly intact. Normal gait and speech. SKIN: Warm, dry, no petechiae, no rashes or lesions. Course Orders Ordered: ED Orders 09/27/21 21:26 XR finger LT min 2V Stat Vital Signs Vital signs: Vital Signs - 8 hr 09/27/21 21:23 09/27/21 23:08 Temperature 98.1 F Pulse Rate 60 64 Respiratory Rate 18 18 Blood Pressure 128/60 119/59 L Pulse Oximetry 99 100 [facility] - Extremity Injury (Upper) Imaging Data Extremity x-ray #1: Radiologist's Impression: PROCEDURE:? XR FINGER LT MIN 2V ? INDICATIONS:? injury one week ago ? TECHNIQUE:? AP hand, 2 views of the 4th finger(s) acquired.? ? COMPARISON:? None. ? FINDINGS:? ? Bones:? Small avulsion fracture at the base of the 4th middle phalanx.? The remaining visualized osseous structures appear maintained.? ? Soft tissues:? Edema about the 4th PIP.? ? IMPRESSION:? Small avulsion fracture at the base of the 4th middle phalanx. ? ? Dictated by: William Lucio M.D. on 09/27/2021 at 21:43 ? ? [facility] Narrative Medical decision making narrative: Patient is placed in a finger splint. He is moving it very easily unlikely to have any tendon injury. Discharge Plan Departure Patient Disposition: Home Clinical Impression: Finger fracture, left Instructions: Finger Fracture Activity Restrictions/Additional Instructions: *You have been diagnosed with very small and subtle fracture in finger *What to do: Wear finger splint. This will take about 4-6 weeks to heal. He may need follow-up with Orthopedics to ensure of proper healing. *Continue to take medications as directed Tylenol 1000 mg every 6 hours as needed for [id number] pain *Follow up with your primary care provider in 2-3 days *Return to ER if you should have pain swelling or any new, worsening or concerning symptoms Prescriptions: No Action trazodone 100 mg tablet 100 mg PO BEDTIME 0RF escitalopram oxalate 10 mg tablet 10 mg PO DAILY 0RF aripiprazole 5 mg tablet 5 mg PO DAILY 0RF levetiracetam 500 mg tablet extended release 24 hr 1,500 mg PO QPM 0RF levetiracetam 500 mg tablet extended release 24 hr 1,000 mg PO QAM 0RF Referrals: [facility] [Provider Group] Fatmata Duong MD [Primary Care Provider] -
[2021-09-27 23:08] VITALS: BP 119/59; PULSE 64; RESP 18; O2SAT 100
== END 2021-09-27 23:08 | disposition home or self-care (01) ==
PROVIDERS: Emergency Provider Emergency Medicine; PCP Psychiatry & Neurology Neurology
DX: S62.625A Displaced fracture of middle phalanx of left ring finger, initial encounter for closed fracture (principal); X58.XXXA Exposure to other specified factors, initial encounter
CPT/HCPCS: 73140; 99283

== ENCOUNTER 2022-02-22 08:03 | Inpatient (IN) | payer OTHER, MEDICAID, SELFPAY ==
[2021-09-20 04:23] VITALS: BMI 20.9
[2022-02-22] VITALS (64 sets, daily range): BP systolic 90–150; BP diastolic 54–83; PULSE 76–133; RESP 19–30; TEMP 36.6; O2SAT 85–100; BMI 23.5
--- NOTE | 2022-02-22 08:17 | ED_ITS ---
HPI - Seizure General Chief Complaint: Seizure Stated Complaint: seizure Time Seen by Provider: 02/22/22 08:09 Source: family and EMS Mode of arrival: EMS Limitations: altered mental status History of Present Illness HPI Narrative: The patient has a history of seizures, onset 2.5 years ago. He lives at home with his mother and other family members. He has missed doses of Keppra, he apparently missed a dose last night. He has not had the medication this morning. A member the household found him naked in the bathroom, he was not alert. Seizure activity was inferred. Paramedics were called. He had purpose ful motion paramedics arrived, abutting seizure occurred. He was the medicated with Versed 10 mg IM. He has a nasal trumpet in place upon arrival, but breathing spontaneously. He is quite sedated. His mother arrived. She smokes marijuana. She denies other drug use, or recent alcohol use. He has not been ill. He has had no fever, headache, URI symptoms or cough. He has had no GI symptoms. Related Data Home Medications Medication Instructions Recorded Confirmed aripiprazole 5 mg tablet 5 mg PO DAILY 09/20/21 09/20/21 escitalopram oxalate 10 mg tablet 10 mg PO DAILY 09/20/21 09/20/21 levetiracetam 500 mg 1,000 mg PO QAM 09/20/21 09/20/21 tablet,extended release 24 hr levetiracetam 500 mg 1,500 mg PO QPM 09/20/21 09/20/21 tablet,extended release 24 hr trazodone 100 mg tablet 100 mg PO BEDTIME 09/20/21 09/20/21 Allergies Allergy/AdvReac Type Severity Reaction Status Date / Time No Known Drug Allergies Allergy Verified 09/19/21 13:38 Review of Systems Review of Systems Narrative: The patient is not communicating with me. His mother denies recent illness. He has been missing medications. He smokes marijuana, no other substance abuse. ROS is otherwise limited by the patient's condition. Patient History Medical History (Updated 02/22/22 @ 20:17 by Percy Ryan MD) Renal insufficiency Seizure disorder Social History household members: family Smoking Status: Current every day smoker Smoking Status: Current every day smoker alcohol intake frequency: holidays/special occasions only Substance Use Type: does not use Exam Initial Vital Signs Initial Vital Signs: Vital Signs Temperature 97.9 F 02/22/22 08:10 Pulse Rate 130 H 02/22/22 08:10 Respiratory Rate 28 H 02/22/22 08:10 Blood Pressure 114/56 L 02/22/22 08:10 Pulse Oximetry 96 02/22/22 08:10 Const General: ill appearing and other (Response to pain, no verbal response.) HENSD Head: normocephalic and atraumatic Face and sinus: normal facial exam Mouth: oral mucosae normal, lip normal and tongue normal Throat: posterior oropharynx normal Eyes General: appearance normal, both eyes and all related structures Pupils: PERRL and pupil size bilaterally 5 EOM: EOM intact bilaterally Neck Neck: full ROM and No tender Chest Chest: normal inspection of the chest Resp Auscultation: clear to auscultation bilaterally Cardio Rate: regular rate Rhythm: regular rhythm Heart Sounds: S1 normal, S2 normal, no click, no murmurs and no rubs GI Inspection: normal to inspection and non-distended Palpation: soft and No tender Auscultation: normal bowel sounds Back/Spine/Pelvis Back: No back tenderness and other (No obvious injuries) Skin General: no rashes or lesions noted and pallor Neuro Other: After the initial evaluation, following Versed administration, the patient would briefly awaken, the go back to sleep. He mumbled several words on a couple occasions. He is mostly sleeping, minimally responsive when awake. He is still altered 10 hours later. Extrem General: normal to inspection, full ROM, no pedal edema and no calf tenderness Course Course Course Narrative: The patient arrived here after probably 2 seizures. Versed was given by paramedics to rest the seizure activity. He was quite sedated upon arrival, he awoke briefly upon several occasions. He did briefly talk on a couple occasions. He was observed in the ER for 10 hours. is mostly sleeping this entire time period. Case was discussed with the hospitalist, Dr. George. The patient will be admitted for ongoing observation. Orders Ordered: ED Orders 02/22/22 13:47 CT head/brain wo con Stat 02/22/22 16:33 Urinalysis and Microscopic Stat Urine Drug Screen, Rapid Stat 02/22/22 17:21 CXR [XR chest 1V] Stat 02/22/22 18:25 ABG [Arterial Blood Gas] Stat 02/22/22 18:30 COVID19 -Nasal RAPID/Pre-Proc Stat 02/22/22 19:15 BMP [Basic Metabolic Panel] Stat CBC Auto Diff [Complete Blood Count AUTO DIFF] Stat Hemoglobin A1C% w Est Avg Glu Stat Discontinued Medications Levetiracetam 1,000 mg/ Sodium (Chloride) 110 mls @ 440 mls/hr IV NOW ONE Stop: 02/22/22 08:12 Last Infusion: 02/22/22 08:55 Dose: 0 mls/hr Documented by: Infusion: 02/22/22 08:36 Dose: 440 mls/hr Documented by: Infusion: 02/22/22 08:35 Dose: 0 mls/hr Documented by: Admin: 02/22/22 08:34 Dose: 440 mls/hr Documented by: SIXTO Sodium Chloride (Normal Saline 0.9%) 1,000 mls @ 1,000 mls/hr IV BOLUS ONE Stop: 02/22/22 09:11 Last Infusion: 02/22/22 10:11 Dose: 0 mls/hr Documented by: Admin: 02/22/22 08:31 Dose: 1,000 mls/hr Documented by: SIXTO Sodium Chloride (Normal Saline 0.9%) 1,000 mls @ 1,000 mls/hr IV BOLUS ONE Stop: 02/22/22 14:45 Last Infusion: 02/22/22 15:49 Dose: 0 mls/hr Documented by: Admin: 02/22/22 14:26 Dose: 1,000 mls/hr Documented by: ELLIOTYLOR Sodium Chloride (Normal Saline 0.9%) 1,000 mls @ 1,000 mls/hr IV BOLUS ONE Stop: 02/22/22 16:33 Last Infusion: 02/22/22 19:15 Dose: 0 mls/hr Documented by: Admin: 02/22/22 15:50 Dose: 1,000 mls/hr Documented by: ENRRIQUE Ceftriaxone Sodium 2,000 mg/ (Sodium Chloride) 100 mls @ 200 mls/hr IV NOW ONE Stop: 02/22/22 16:58 Last Infusion: 02/22/22 18:14 Dose: 0 mls/hr Documented by: Admin: 02/22/22 17:37 Dose: 200 mls/hr Documented by: CARISSA Ondansetron HCl (Ondansetron 4 Mg/2 Ml Inj) 4 mg IV NOW ONE Stop: 02/22/22 13:47 Last Admin: 02/22/22 14:26 Dose: 4 mg Documented by: ENRRIQUE Pantoprazole Sodium (Pantoprazole 40 Mg Vial) 40 mg IV NOW ONE Stop: 02/22/22 10:12 Last Admin: 02/22/22 11:17 Dose: 40 mg Documented by: CARISSA Vital Signs Vital signs: Vital Signs - 8 hr 02/22/22 12:10 02/22/22 12:20 02/22/22 12:30 Pulse Rate 97 H 97 H 116 H Respiratory Rate Blood Pressure 109/58 L 112/58 L Pulse Oximetry 97 99 97 02/22/22 12:31 02/22/22 12:40 02/22/22 12:50 Pulse Rate 113 H 104 H Respiratory Rate Blood Pressure 118/68 109/58 L 118/65 Pulse Oximetry 98 96 97 02/22/22 13:00 02/22/22 13:10 02/22/22 13:21 Pulse Rate 105 H 94 H 119 H Respiratory Rate Blood Pressure 115/68 116/73 92/64 Pulse Oximetry 97 97 97 02/22/22 13:30 02/22/22 13:31 02/22/22 13:40 Pulse Rate 106 H 108 H 93 H Respiratory Rate Blood Pressure 125/76 111/62 Pulse Oximetry 94 99 97 02/22/22 13:50 02/22/22 14:00 02/22/22 14:30 Pulse Rate 92 H 100 H 90 Respiratory Rate 19 Blood Pressure 109/62 Pulse Oximetry 98 98 02/22/22 15:00 02/22/22 15:30 02/22/22 15:58 Pulse Rate 89 87 103 H Respiratory Rate Blood Pressure 115/57 L Pulse Oximetry 98 99 98 02/22/22 16:00 02/22/22 16:01 02/22/22 16:10 Pulse Rate 106 H 105 H 109 H Respiratory Rate Blood Pressure 147/83 H 145/82 H Pulse Oximetry 98 98 98 02/22/22 16:20 02/22/22 16:30 04/21/22 16:31 Pulse Rate 107 H 105 H Respiratory Rate Blood Pressure 145/70 H 149/74 H Pulse Oximetry 98 95 02/22/22 17:00 02/22/22 17:01 02/22/22 17:30 Pulse Rate 100 H 95 H Respiratory Rate Blood Pressure 93/55 L 116/70 Pulse Oximetry 96 97 02/22/22 18:00 02/22/22 18:01 02/22/22 18:30 Pulse Rate 100 H 94 H 91 H Respiratory Rate Blood Pressure 110/58 L 103/64 Pulse Oximetry 98 97 98 02/22/22 19:00 Pulse Rate 84 Respiratory Rate Blood Pressure 133/72 Pulse Oximetry 97 MDM - Seizure Lab Data Result diagrams: 02/22/22 19:15 02/22/22 19:15 Labs: Lab Results 02/22/22 02/22/22 02/22/22 Range/Units 08:50 08:50 08:50 WBC 31.9 H* (4.5-11.0) X10^3/uL RBC 4.96 (4.5-5.9) X10^6/uL Hgb 14.6 (13.5-17.5) g/dL Hct 43.4 (41-53) % MCV 87.6 (80-100) fL MCH 29.4 (26-34) PG MCHC 33.6 (30-36) % RDW 12.8 (11.6-14.8) % Plt Count 272 (150-400) X10^3/uL Neut % (Auto) Not Reportable Lymph % (Auto) Not Reportable [place] % (Auto) Not Reportable Eos % (Auto) Not Reportable Baso % (Auto) Not Reportable Neut # (Auto) (3022-9051) /uL Lymph # (Auto) Not Reportable [place] # (Auto) Not Reportable Eos # (Auto) (0-450) /uL Baso # (Auto) Not Reportable Total Counted 100 Seg Neutrophils % 72.0 H (38-70) % Band Neutrophils % 19.0 H (3-7) % Lymphocytes % (Manual) 4.0 L (25-45) % Monocytes % (Manual) 5.0 (2-11) % Neutrophils # (Manual) 63007 H (2667-3004) /uL RBC Morphology Normal morphology ABG pH (7.35-7.45) ABG pCO2 (35-45) mmHg ABG pO2 (80-100) mmHg ABG HCO3 (22-26) mmol/L ABG Total CO2 (21-31) mmol/L ABG O2 Saturation (95-100) % ABG Base Excess (-2-2) mmol/L FiO2 Sodium 145 (137-145) mmol/L Potassium 4.4 (3.4-5.1) mmol/L Chloride 113 H (98-107) mmol/L Carbon Dioxide 18 L (22-32) mmol/L BUN 9 (9-20) mg/dL Creatinine 1.36 H (0.66-1.25) mg/dL Estimated GFR > 60 (>60) mL/min BUN/Creatinine Ratio 6.6 (6-22) Glucose 244 H (70-100) mg/dL Hemoglobin A1c (4.0-6.0) % Calcium 9.3 (8.4-10.2) mg/dL Total Bilirubin 0.2 (0.2-1.3) mg/dL AST 52 (17-59) IU/L ALT 35 (<50) IU/L Alkaline Phosphatase 75 (38-126) U/L Total Creatine Kinase 403 H (55-170) U/L Total Protein 7.7 (6.3-8.2) g/dL Albumin 5.0 (3.5-5.0) g/dL Globulin 2.7 (1.7-4.1) g/dL Albumin/Globulin Ratio 1.9 (1.0-2.8) Urine Color Urine Appearance Urine pH (4.5-8.0) Ur Specific [place] (1.000-1.035) Urine Protein (Negative) Urine Glucose (UA) (Negative) g/dL Urine Ketones (NEGATIVE) Urine Occult Blood (Negative) Urine Nitrate (Negative) Urine Bilirubin (NEGATIVE) Urine Urobilinogen (0.2) E.U./dL Ur Leukocyte Esterase (NEGATIVE) Urine RBC (0-5/HPF) Urine WBC (0-5/HPF) Ur Squamous Epith Cells (0-5/HPF) Uric Acid Crystals (None) Urine Bacteria (None) Ur Culture Indicated? U Opiates 300ng/mL cut (Negative) Ur Oxycodone Screen (Negative) Urine Methadone Screen (Negative) Ur Barbiturates Screen (Negative) U Tricyclic Antidepress (Negative) Ur Phencyclidine Scrn (Negative) Ur Amphetamines Screen (Negative) U Methamphetamines Scrn (Negative) Ur MDMA Scrn (Ecstasy) (Negative) U Benzodiazepines Scrn (Negative) Urine Cocaine Screen (Negative) U Marijuana (THC) Screen (Negative) Ethyl Alcohol < 10 ( - 10) mg/dL SARS-CoV-2 (PCR) (Negative) 02/22/22 02/22/22 02/22/22 Range/Units 16:33 16:33 18:25 WBC (4.5-11.0) X10^3/uL RBC (4.5-5.9) X10^6/uL Hgb (13.5-17.5) g/dL Hct (41-53) % MCV (80-100) fL MCH (26-34) PG MCHC (30-36) % RDW (11.6-14.8) % Plt Count (150-400) X10^3/uL Neut % (Auto) Lymph % (Auto) [place] % (Auto) Eos % (Auto) Baso % (Auto) Neut # (Auto) (2283-5137) /uL Lymph # (Auto) [place] # (Auto) Eos # (Auto) (0-450) /uL Baso # (Auto) Total Counted Seg Neutrophils % (38-70) % Band Neutrophils % (3-7) % Lymphocytes % (Manual) (25-45) % Monocytes % (Manual) (2-11) % Neutrophils # (Manual) (0538-6323) /uL RBC Morphology ABG pH 7.33 L (7.35-7.45) ABG pCO2 30.4 L (35-45) mmHg ABG pO2 46 L* (80-100) mmHg ABG HCO3 16 L (22-26) mmol/L ABG Total CO2 17 L (21-31) mmol/L ABG O2 Saturation 79 L* (95-100) % ABG Base Excess -10.0 L (-2-2) mmol/L FiO2 21 Sodium (137-145) mmol/L Potassium (3.4-5.1) mmol/L Chloride (98-107) mmol/L Carbon Dioxide (22-32) mmol/L BUN (9-20) mg/dL Creatinine (0.66-1.25) mg/dL Estimated GFR (>60) mL/min BUN/Creatinine Ratio (6-22) Glucose (70-100) mg/dL Hemoglobin A1c (4.0-6.0) % Calcium (8.4-10.2) mg/dL Total Bilirubin (0.2-1.3) mg/dL AST (17-59) IU/L ALT (<50) IU/L Alkaline Phosphatase (38-126) U/L Total Creatine Kinase (55-170) U/L Total Protein (6.3-8.2) g/dL Albumin (3.5-5.0) g/dL Globulin (1.7-4.1) g/dL Albumin/Globulin Ratio (1.0-2.8) Urine Color Yellow Urine Appearance Clear Urine pH 5.0 (4.5-8.0) Ur Specific [place] 1.025 (1.000-1.035) Urine Protein 2+ H (Negative) Urine Glucose (UA) 2+ H (Negative) g/dL Urine Ketones Negative (NEGATIVE) Urine Occult Blood 3+ H (Negative) Urine Nitrate Negative (Negative) Urine Bilirubin Negative (NEGATIVE) Urine Urobilinogen 0.2 (0.2) E.U./dL Ur Leukocyte Esterase Negative (NEGATIVE) Urine RBC None seen (0-5/HPF) Urine WBC None seen (0-5/HPF) Ur Squamous Epith Cells None seen (0-5/HPF) Uric Acid Crystals Many H (None) Urine Bacteria None seen (None) Ur Culture Indicated? Cult not indicated U Opiates 300ng/mL cut Negative (Negative) Ur Oxycodone Screen Negative (Negative) Urine Methadone Screen Negative (Negative) Ur Barbiturates Screen Negative (Negative) U Tricyclic Antidepress Negative (Negative) Ur Phencyclidine Scrn Negative (Negative) Ur Amphetamines Screen Negative (Negative) U Methamphetamines Scrn Negative (Negative) Ur MDMA Scrn (Ecstasy) Negative (Negative) U Benzodiazepines Scrn Negative (Negative) Urine Cocaine Screen Negative (Negative) U Marijuana (THC) Screen Positive H (Negative) Ethyl Alcohol ( - 10) mg/dL SARS-CoV-2 (PCR) (Negative) 02/22/22 02/22/22 02/22/22 Range/Units 18:30 19:15 19:15 WBC 25.0 H (4.5-11.0) X10^3/uL RBC 3.78 L (4.5-5.9) X10^6/uL Hgb 11.3 L (13.5-17.5) g/dL Hct 33.1 L (41-53) % MCV 87.6 (80-100) fL MCH 29.8 (26-34) PG MCHC 34.1 (30-36) % RDW 13.1 (11.6-14.8) % Plt Count 200 (150-400) X10^3/uL Neut % (Auto) 88.5 H Lymph % (Auto) 4.8 L [place] % (Auto) 6.5 Eos % (Auto) 0.0 L Baso % (Auto) 0.2 Neut # (Auto) 81351 H (8560-1042) /uL Lymph # (Auto) 1200 [place] # (Auto) 1600 H Eos # (Auto) 0 (0-450) /uL Baso # (Auto) 0 Total Counted Seg Neutrophils % (38-70) % Band Neutrophils % (3-7) % Lymphocytes % (Manual) (25-45) % Monocytes % (Manual) (2-11) % Neutrophils # (Manual) (8169-7668) /uL RBC Morphology ABG pH (7.35-7.45) ABG pCO2 (35-45) mmHg ABG pO2 (80-100) mmHg ABG HCO3 (22-26) mmol/L ABG Total CO2 (21-31) mmol/L ABG O2 Saturation (95-100) % ABG Base Excess (-2-2) mmol/L FiO2 Sodium 143 (137-145) mmol/L Potassium 4.1 (3.4-5.1) mmol/L Chloride 118 H (98-107) mmol/L Carbon Dioxide 13 L (22-32) mmol/L BUN 16 (9-20) mg/dL Creatinine 2.33 H (0.66-1.25) mg/dL Estimated GFR 39 L (>60) mL/min BUN/Creatinine Ratio 6.9 (6-22) Glucose 102 H D (70-100) mg/dL Hemoglobin A1c (4.0-6.0) % Calcium 7.3 L (8.4-10.2) mg/dL Total Bilirubin (0.2-1.3) mg/dL AST (17-59) IU/L ALT (<50) IU/L Alkaline Phosphatase (38-126) U/L Total Creatine Kinase (55-170) U/L Total Protein (6.3-8.2) g/dL Albumin (3.5-5.0) g/dL Globulin (1.7-4.1) g/dL Albumin/Globulin Ratio (1.0-2.8) Urine Color Urine Appearance Urine pH (4.5-8.0) Ur Specific [place] (1.000-1.035) Urine Protein (Negative) Urine Glucose (UA) (Negative) g/dL Urine Ketones (NEGATIVE) Urine Occult Blood (Negative) Urine Nitrate (Negative) Urine Bilirubin (NEGATIVE) Urine Urobilinogen (0.2) E.U./dL Ur Leukocyte Esterase (NEGATIVE) Urine RBC (0-5/HPF) Urine WBC (0-5/HPF) Ur Squamous Epith Cells (0-5/HPF) Uric Acid Crystals (None) Urine Bacteria (None) Ur Culture Indicated? U Opiates 300ng/mL cut (Negative) Ur Oxycodone Screen (Negative) Urine Methadone Screen (Negative) Ur Barbiturates Screen (Negative) U Tricyclic Antidepress (Negative) Ur Phencyclidine Scrn (Negative) Ur Amphetamines Screen (Negative) U Methamphetamines Scrn (Negative) Ur MDMA Scrn (Ecstasy) (Negative) U Benzodiazepines Scrn (Negative) Urine Cocaine Screen (Negative) U Marijuana (THC) Screen (Negative) Ethyl Alcohol ( - 10) mg/dL SARS-CoV-2 (PCR) Negative (Negative) 02/22/22 Range/Units 19:15 WBC (4.5-11.0) X10^3/uL RBC (4.5-5.9) X10^6/uL Hgb (13.5-17.5) g/dL Hct (41-53) % MCV (80-100) fL MCH (26-34) PG MCHC (30-36) % RDW (11.6-14.8) % Plt Count (150-400) X10^3/uL Neut % (Auto) Lymph % (Auto) [place] % (Auto) Eos % (Auto) Baso % (Auto) Neut # (Auto) (5150-4287) /uL Lymph # (Auto) [place] # (Auto) Eos # (Auto) (0-450) /uL Baso # (Auto) Total Counted Seg Neutrophils % (38-70) % Band Neutrophils % (3-7) % Lymphocytes % (Manual) (25-45) % Monocytes % (Manual) (2-11) % Neutrophils # (Manual) (6586-9426) /uL RBC Morphology ABG pH (7.35-7.45) ABG pCO2 (35-45) mmHg ABG pO2 (80-100) mmHg ABG HCO3 (22-26) mmol/L ABG Total CO2 (21-31) mmol/L ABG O2 Saturation (95-100) % ABG Base Excess (-2-2) mmol/L FiO2 Sodium (137-145) mmol/L Potassium (3.4-5.1) mmol/L Chloride (98-107) mmol/L Carbon Dioxide (22-32) mmol/L BUN (9-20) mg/dL Creatinine (0.66-1.25) mg/dL Estimated GFR (>60) mL/min BUN/Creatinine Ratio (6-22) Glucose (70-100) mg/dL Hemoglobin A1c 5.0 (4.0-6.0) % Calcium (8.4-10.2) mg/dL Total Bilirubin (0.2-1.3) mg/dL AST (17-59) IU/L ALT (<50) IU/L Alkaline Phosphatase (38-126) U/L Total Creatine Kinase (55-170) U/L Total Protein (6.3-8.2) g/dL Albumin (3.5-5.0) g/dL Globulin (1.7-4.1) g/dL Albumin/Globulin Ratio (1.0-2.8) Urine Color Urine Appearance Urine pH (4.5-8.0) Ur Specific [place] (1.000-1.035) Urine Protein (Negative) Urine Glucose (UA) (Negative) g/dL Urine Ketones (NEGATIVE) Urine Occult Blood (Negative) Urine Nitrate (Negative) Urine Bilirubin (NEGATIVE) Urine Urobilinogen (0.2) E.U./dL Ur Leukocyte Esterase (NEGATIVE) Urine RBC (0-5/HPF) Urine WBC (0-5/HPF) Ur Squamous Epith Cells (0-5/HPF) Uric Acid Crystals (None) Urine Bacteria (None) Ur Culture Indicated? U Opiates 300ng/mL cut (Negative) Ur Oxycodone Screen (Negative) Urine Methadone Screen (Negative) Ur Barbiturates Screen (Negative) U Tricyclic Antidepress (Negative) Ur Phencyclidine Scrn (Negative) Ur Amphetamines Screen (Negative) U Methamphetamines Scrn (Negative) Ur MDMA Scrn (Ecstasy) (Negative) U Benzodiazepines Scrn (Negative) Urine Cocaine Screen (Negative) U Marijuana (THC) Screen (Negative) Ethyl Alcohol ( - 10) mg/dL SARS-CoV-2 (PCR) (Negative) Imaging Data CT scan - head: Radiologist's Impression: Motion artifact. No acute findings. Chest x-ray: Radiologist's Impression: No acute findings. Discharge Plan Departure Patient Disposition: Admitted as Observation Clinical Impression: Seizure, Renal insufficiency, Hyperglycemia, Altered mental status Admit Date/Time: 02/22/22 19:39 Admit Provider: Joseline George
[2022-02-22] MEDS: SODIUM CHLORIDE 0.9% 1,000 ML 1000 ML IV ×3 (08:31→15:50)
[2022-02-22] MEDS: levETIRAcetam 1,000 MG in SODIUM CHLORIDE 0.9% 100 ML 440 ML IV ×2 (08:34→23:10)
[2022-02-22 08:59] LABS: Hematocrit 43.4 % (41-53); Hemoglobin 14.6 g/dL (13.5-17.5); Mean Corpuscular HGB Conc 33.6 % (30-36); Mean Corpuscular Hemoglobin 29.4 PG (26-34); Mean Corpuscular Volume 87.6 fL (80-100); Platelet Count 272 X10^3/uL (150-400); Red Blood Cell Count 4.96 X10^6/uL (4.5-5.9); Red Cell Distribution Width 12.8 % (11.6-14.8)
[2022-02-22 09:03] LABS: Add Manual Diff / Slide Review YES; White Blood Cell Count 31.9 X10^3/uL (4.5-11.0)
[2022-02-22 09:19] LABS: Neutrophils Absolute Manual 29029 /uL (3000-5900); Total Cells Counted 100
[2022-02-22 09:20] LABS: RBC Morphology Normal Morphology
[2022-02-22 09:25] LABS: Alanine Aminotransferase 35 IU/L (<50); Albumin Globulin Ratio 1.9 (1.0-2.8); Alkaline Phosphatase 75 U/L (38-126); Aspartate Aminotransferase 52 IU/L (17-59); BUN Creatinine Ratio 6.6 (6-22); Bilirubin Total 0.2 mg/dL (0.2-1.3); Blood Urea Nitrogen 9 mg/dL (9-20); Calcium 9.3 mg/dL (8.4-10.2); Carbon Dioxide 18 mmol/L (22-32); Chloride 113 mmol/L (98-107); Estimated Glomerular Filt Rate > 60 mL/min (>60); Ethanol (ETOH) < 10 mg/dL; Globulin 2.7 g/dL (1.7-4.1); Glucose 244 mg/dL (70-100); HEMOLYSIS 23 (0-50); Potassium 4.4 mmol/L (3.4-5.1); Sodium 145 mmol/L (137-145); Total Protein 7.7 g/dL (6.3-8.2)
[2022-02-22] MEDS: ONDANSETRON 4 MG/2 ML INJ (10:11)
[2022-02-22] MEDS: PANTOPRAZOLE 40 MG VIAL IV (11:17)
--- NOTE | 2022-02-22 12:13 | PC.NURSE ---
Pt waking spontaneously, moving in bed, followed commands to raise arms and squeeze. Alert to self.
--- NOTE | 2022-02-22 13:00 | PC.NURSE ---
Pt easily arousable, reports he is tired and requests water. Per Dr. Ryan, pt encouraged to drink liquids, ice water provided, pt tolerating well.
--- NOTE | 2022-02-22 13:35 | PC.NURSE ---
pt given sips of water. Mother reported pt projectile vomit large amount all over bed. pt is still opening eyes spontaneously but unable to follow commands. provider made aware
--- NOTE | 2022-02-22 13:47 | DI.CT.S_ITS ---
PROCEDURE: CT HEAD/BRAIN WO CON INDICATIONS: Seizure. Delayed recovery. TECHNIQUE: Noncontrast 4.5 mm thick angled axial sections acquired from the foramen magnum to the vertex, with coronal and sagittal reformats. For radiation dose reduction, the following was used: automated exposure control, adjustment of mA and/or kV according to patient size. COMPARISON: [facility], CT, CT HEAD/BRAIN WO CON, 06/30/2021, 11:03. [facility], CT, CT HEAD/BRAIN WO CON, 09/19/2021, 20:13. FINDINGS: Image quality: This evaluation is limited, secondary to the patient's inability to fully cooperate with the examination. This examination is limited by involuntary motion artifact. CSF spaces: Basal cisterns are patent. No extra-axial fluid collections. Ventricles are normal in size and shape. Brain: No midline shift. No intracranial masses or hemorrhage. Aggarwal-white matter interface is normal. Skull and face: Calvarium and visualized facial bones are intact, without suspicious lesions. Sinuses: Visualized sinuses and mastoids are clear. IMPRESSION: Limited intracranial study demonstrating no significant abnormality. Dictated by: Shaji Villanueva M.D. on 02/22/2022 at 13:25 Approved by: Shaji Villanueva M.D. on 02/22/2022 at 13:26
[2022-02-22] MEDS: ONDANSETRON 4 MG/2 ML INJ IV (14:26)
--- NOTE | 2022-02-22 15:25 | PC.NURSE ---
Pt states he does not have urge nor need to pee, assisted to hold urinal, pt unable to provide sample at this time. Dr Ryan aware.
--- NOTE | 2022-02-22 15:50 | PC.NURSE ---
Attempted to assist pt with urinal again but pt denies need to pee. Pt coughing, HOB elevated, coached to spit up rather than swallow, suction utilized.
[2022-02-22 16:40] LABS: Appearance Urine UA CLEAR; Bilirubin Urine UA NEGATIVE (NEGATIVE); Color Urine UA YELLOW; Glucose Urine UA 2+ g/dL (Negative); Ketones Urine UA NEGATIVE (NEGATIVE); Leukocyte Esterase Urine UA NEGATIVE (NEGATIVE); Nitrite Urine UA NEGATIVE (Negative); Occult Blood Urine UA 3+ (Negative); Protein Urine UA 2+ (Negative); Specific Gravity Urine UA 1.025 (1.000-1.035); Urobilinogen Urine UA 0.2 E.U./dL (0.2)
[2022-02-22 17:07] LABS: UR Morphine/Opiate cutoff 300 Negative (Negative); Ur Creatinine Normal (Normal); Ur Specific Gravity Normal (Normal); Urine Amphetamines Negative (Negative); Urine Barbiturates Negative (Negative); Urine Benzodiazepines Negative (Negative); Urine Cocaine Negative (Negative); Urine MDMA Negative (Negative); Urine Methadone Negative (Negative); Urine Methamphetamines Negative (Negative); Urine Oxycodone Negative (Negative); Urine Phencyclidine Negative (Negative); Urine Tetrahydrocannabinol Positive (Negative); Urine Tricyclic Antidepressant Negative (Negative); Urine pH Normal (Normal)
--- NOTE | 2022-02-22 17:21 | DI.RAD.S_ITS ---
PROCEDURE: XR CHEST 1V INDICATIONS: Seizure. Rule out aspiration. TECHNIQUE: One view of the chest was acquired. COMPARISON: [facility], CR, XR CHEST 1V, 09/19/2021, 20:13. FINDINGS: Surgical changes and devices: None. Lungs and pleura: Lungs are clear. No pleural effusions or pneumothorax. Mediastinum: Mediastinal contours appear normal. Heart size is normal. Bones and chest wall: No suspicious bony lesions. Overlying soft tissues appear unremarkable. IMPRESSION: No acute cardiopulmonary abnormality. Dictated by: Rigoberto Miranda M.D. on 02/22/2022 at 17:43 Approved by: Rigoberto Miranda M.D. on 02/22/2022 at 17:44
[2022-02-22 17:24] LABS: Creatine Kinase 403 U/L (55-170)
[2022-02-22 17:33] LABS: Bacteria Urine None Seen; Culture Indicated Urine Cult Not Indicated; RBC Urine None Seen (0-5/HPF); Squamous Epithelial Cell Urine None Seen (0-5/HPF); Uric Acid Crystals Urine Many; WBC Urine None Seen (0-5/HPF)
[2022-02-22] MEDS: cefTRIAXone 2,000 MG in SODIUM CHLORIDE 0.9% 100 ML 200 ML IV (17:37)
--- NOTE | 2022-02-22 17:40 | PC.NURSE ---
dr alexander went to see patient while mother was in cafeteria. Pt still unresponsive, began coughing and appears to vomit in mouth and then swallow, used suction to attempt to suction out mouth, little success. pt did not tolerate suction in his mouth. chest x ray done. pt given more blankets. spoke with mother when she returned. she states the shortest stay she has had in the ER after one of his seizures is 13hr, longest on is 3 days. she states the 3 day stay was because he was vomiting a lot and couldn't keep anything down. Mother states this is normal for him.
[2022-02-22 18:41] LABS: PCO2 ABG 30.4 mmHg (35-45); pH ABG 7.33 (7.35-7.45)
[2022-02-22 18:42] LABS: HCO3 ABG 16 mmol/L (22-26); PO2 ABG 46 mmHg (80-100); TCO2 ABG 17 mmol/L (21-31)
[2022-02-22 18:43] LABS: Fractionated Inspired Oxygen 21; Oxygen Saturation ABG 79 % (95-100)
--- NOTE | 2022-02-22 19:18 | PC.NURSE ---
went to check on pt who was coughing. pt tolerated suction in mouth. when asked if he is ok, he said yes. asked pt if he knew where he is, he responded in the hospital, when asked why he is here, he responded, seizure. when asked if comfortable, he responded yes.
[2022-02-22 19:24] LABS: COVID19 -Nasal RAPID Negative (Negative)
[2022-02-22 19:34] LABS: Add Manual Diff / Slide Review NO; Basophils Absolute Auto 0 /uL (0-100); Basophils Percent Auto 0.2 % (0-2); Eosinophils Absolute Auto 0 /uL (0-450); Hematocrit 33.1 % (41-53); Hemoglobin 11.3 g/dL (13.5-17.5); Lymphocytes Absolute Auto 1200 /uL (1100-4500); Lymphocytes Percent Auto 4.8 % (25-40); Mean Corpuscular HGB Conc 34.1 % (30-36); Mean Corpuscular Hemoglobin 29.8 PG (26-34); Mean Corpuscular Volume 87.6 fL (80-100); Monocytes Absolute Auto 1600 /uL (0-900); Monocytes Percent Auto 6.5 % (3-14); Neutrophils Absolute Auto 22100 /uL (1500-7000); Neutrophils Percent Auto 88.5 % (50-75); Platelet Count 200 X10^3/uL (150-400); Red Blood Cell Count 3.78 X10^6/uL (4.5-5.9); Red Cell Distribution Width 13.1 % (11.6-14.8)
[2022-02-22 19:49] LABS: BUN Creatinine Ratio 6.9 (6-22); Blood Urea Nitrogen 16 mg/dL (9-20); Calcium 7.3 mg/dL (8.4-10.2); Carbon Dioxide 13 mmol/L (22-32); Chloride 118 mmol/L (98-107); Estimated Glomerular Filt Rate 39 mL/min (>60); Glucose 102 mg/dL (70-100); HEMOLYSIS 17 (0-50); Potassium 4.1 mmol/L (3.4-5.1); Sodium 143 mmol/L (137-145)
[2022-02-22] MEDS: SODIUM CHLORIDE 0.9% 1,000 ML 125 ML IV (23:10)
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
[2022-02-23] VITALS (8 sets, daily range): BP systolic 137–147; BP diastolic 67–89; PULSE 61–83; RESP 16–22; TEMP 36.8–37.2; O2SAT 92–100
[2022-02-23] MEDS: ONDANSETRON 4 MG/2 ML INJ IV ×2 (00:33→17:03)
[2022-02-23 00:50] LABS: Lactate (Lactic Acid) 1.7 mmol/L (0.7-2.1)
[2022-02-23 01:07] LABS: Procalcitonin 16.7 ng/mL (<0.5)
[2022-02-23 02:41] LABS: Lipase 454 U/L (23-300)
--- NOTE | 2022-02-23 03:35 | DI.US.S_ITS ---
PROCEDURE: US ABDOMEN LIMITED INDICATIONS: POSSIBLE CHOLECYSTITIS TECHNIQUE: Real-time focused scanning was performed of the abdomen, with image documentation. COMPARISON: [facility], [place], CT ABDOMEN PELVIS W CON, 09/19/2021, 22:57. FINDINGS: Liver: Normal echotexture and contour. Gallbladder: The gallbladder wall measures up to 3.6 mm. Layering, shadowing gallstones are seen. CBD: 3.4 mm. Pancreas: Not well seen. IMPRESSION: Cholelithiasis with gallbladder wall thickening. Dictated by: William Lucio M.D. on 02/23/2022 at 8:26 Approved by: William Lucio M.D. on 02/23/2022 at 8:29
--- NOTE | 2022-02-23 05:38 | PC.NURSE ---
Pt arrived to the floor from ED at 2119, oriented to self, able to open eyes but unable to follow simple commands, stable V/S, denies pain, intermittent non-productive cough, restless, and uncooperative. Call light in reach and bed alarm is on. Pt had emesis episode X4 and insisted to void in the toilet instead of using urinal. Pt continues to be restless and gets out of bed throughout the night.
[2022-02-23] MEDS: PIPERACILLIN/TAZO 4.5 GM in SODIUM CHLORIDE 0.9% 100 ML 25 ML IV (06:08)
[2022-02-23 06:46] LABS: Add Manual Diff / Slide Review NO; Basophils Absolute Auto 0 /uL (0-100); Basophils Percent Auto 0.1 % (0-2); Eosinophils Absolute Auto 0 /uL (0-450); Hematocrit 32.8 % (41-53); Hemoglobin 11.4 g/dL (13.5-17.5); Lymphocytes Absolute Auto 1300 /uL (1100-4500); Lymphocytes Percent Auto 5.6 % (25-40); Mean Corpuscular HGB Conc 34.7 % (30-36); Mean Corpuscular Hemoglobin 30.3 PG (26-34); Mean Corpuscular Volume 87.4 fL (80-100); Monocytes Absolute Auto 1400 /uL (0-900); Monocytes Percent Auto 6.3 % (3-14); Neutrophils Absolute Auto 19800 /uL (1500-7000); Platelet Count 191 X10^3/uL (150-400); Red Blood Cell Count 3.75 X10^6/uL (4.5-5.9); Red Cell Distribution Width 13.3 % (11.6-14.8); White Blood Cell Count 22.5 X10^3/uL (4.5-11.0)
[2022-02-23 06:53] LABS: BUN Creatinine Ratio 4.9 (6-22); Blood Urea Nitrogen 22 mg/dL (9-20); Calcium 8.1 mg/dL (8.4-10.2); Carbon Dioxide 14 mmol/L (22-32); Chloride 117 mmol/L (98-107); Estimated Glomerular Filt Rate 18 mL/min (>60); Glucose 105 mg/dL (70-100); HEMOLYSIS < 15 (0-50); Magnesium 2.6 mg/dL (1.6-2.3); Potassium 3.9 mmol/L (3.4-5.1); Sodium 144 mmol/L (137-145)
[2022-02-23 07:12] LABS: Alanine Aminotransferase 37 IU/L (<50); Albumin 3.9 g/dL (3.5-5.0); Albumin Globulin Ratio 1.5 (1.0-2.8); Alkaline Phosphatase 56 U/L (38-126); Aspartate Aminotransferase 91 IU/L (17-59); Bilirubin Total 0.4 mg/dL (0.2-1.3); Bilirubin Unconjugated 0.4 mg/dL (0.0-1.1); Globulin 2.6 g/dL (1.7-4.1); HEMOLYSIS < 15 (0-50); Total Protein 6.5 g/dL (6.3-8.2)
[2022-02-23] MEDS: ARIPiprazole 10 MG TABLET 5 MG PO (10:24)
[2022-02-23] MEDS: levETIRAcetam 250 MG TABLET 1500 MG PO (10:24)
[2022-02-23] MEDS: ENOXAPARIN 40 MG/0.4 ML SYRINGE SUBCUT (10:25)
[2022-02-23] MEDS: ESCITALOPRAM 10 MG TABLET PO (10:25)
[2022-02-23 10:36] LABS: Creatine Kinase 11156 U/L (55-170)
[2022-02-23] MEDS: SODIUM CHLORIDE 0.9% 1,000 ML 200 ML IV ×2 (12:02→18:52)
--- NOTE | 2022-02-23 12:51 | PC.NURSE ---
Addendum entered by Uli Echavarria R.N. 02/23/22 16:37: Per [employer] patient has had 2 episodes of liquid bowel incontinence/urgency and has been assisted up to the bathroom to finish having BM. Not sure how much urine patient has had during those episodes. Dr. Enriquez notified. Patient also instructed again to use the urinal so that we can closely monitor output. Urinal within reach. Patient agrees, but denies need at this time. IV fluids infusing as ordered. Patient has is lethargic and sleeping on and off throughout the day so far. Mother is also sleeping in chair at bedside. Continue to monitor. Original Note: Patient has been tolerating water since clear liquids initiated this morning just prior to 11am. Attempted to drink apple juice with lunch, drank a cup of it very quickly, and then vomited the juice back up within a few minutes. Tray removed, patient denies pain, and wants to go to sleep. Encouraged only to sip on water at this time in small amounts as tolerated. Call light within reach, bed alarm on for safety. Notified by C S S REPRESENTATIVE that patient's HR is bradycardic in 40's. Patient sleeping in bed, awakened and denies complaints at this time. BP 140/75 and HR up to [address] Enriquez notified and also updated on patient's vomiting after drinking juice. COntinue to monitor.
[2022-02-23] MEDS: PIPERACILLIN/TAZO 3.375 GM in SODIUM CHLORIDE 0.9% 100 ML 25 ML IV (14:38)
[2022-02-23 15:19] LABS: Blood Urea Nitrogen 28 mg/dL (9-20); Calcium 8.1 mg/dL (8.4-10.2); Carbon Dioxide 14 mmol/L (22-32); Chloride 118 mmol/L (98-107); Estimated Glomerular Filt Rate 14 mL/min (>60); Glucose 98 mg/dL (70-100); HEMOLYSIS 21 (0-50); Potassium 4.4 mmol/L (3.4-5.1); Sodium 142 mmol/L (137-145)
--- NOTE | 2022-02-23 18:55 | P.PN_ITS ---
Subjective Subjective Date Patient Seen: 02/23/22 Time Patient Seen: 09:00 Interval history: Patient is more awake and alert today, but over the course of the day becoming more nauseous with multiple episodes of NBNB emesis. He denies abdominal pain. His ultrasound showed GBWT and stones, however he was very non-tender on exam. Refused lee catheter at this time, encouraged to use urinal. Need strict intake and output in setting of PAU and rhadbomyolysis. Repeated CK and had increased to >11,000. Increased fluids but creatinine continued to rise. Exam Vital Signs (past 8 hours): - 02/23/22 15:15 Temperature 98.3 F Pulse Rate 70 Respiratory Rate 16 Blood Pressure 139/82 Pulse Oximetry 97 Oxygen Delivery Method Room Air Oxygen Flow Rate 0 Narrative Exam Narrative: General:? Patient is well developed and well nourished, in no distress at this time but does appear ill. Occasional vomiting throughout the day. HEENT:? Normocephalic, atraumatic, extraocular muscles intact, oral pharynx is clear and mucous membranes are dry. Neck: supple and symmetric, trachea is midline, no cervical adenopathy. Negative for JVD Chest:? Normal AP diameter and contour without kyphoscoliosis, no tachypnea, equal chest rise bilaterally. Lungs:? CTA b/l no wheezing rhonchi or rales. Cardio:?RRR no m/r/g. Abdomen: S NT ND. No CVA tenderness. Musculoskeletal:? Muscle strength and tone are equal within normal limits, no deformity. Extremities: No edema or joint effusions. No cyanosis or clubbing. Skin:? Pale,? Warm to touch,dry and intact without rashes, ulcerations or petechiae.? Neuro:? Alert and orientated x3,? sensation to touch intact in all extremities, no gross deficits noted of cranial nerves. Psych:? Patient has a well-kept appearance, appropriate affect, mental status attitude thought context and judgment are appropriate for age. Objective Labs Result Diagrams: 02/23/22 06:31 02/23/22 22:57 Labs: Laboratory Results - last 24 hr 02/22/22 02/22/22 02/22/22 18:30 19:15 19:15 WBC 25.0 H RBC 3.78 L Hgb 11.3 L Hct 33.1 L MCV 87.6 MCH 29.8 MCHC 34.1 RDW 13.1 Plt Count 200 Neut % (Auto) 88.5 H Lymph % (Auto) 4.8 L [place] % (Auto) 6.5 Eos % (Auto) 0.0 L Baso % (Auto) 0.2 Neut # (Auto) 56455 H Lymph # (Auto) 1200 [place] # (Auto) 1600 H Eos # (Auto) 0 Baso # (Auto) 0 Sodium 143 Potassium 4.1 Chloride 118 H Carbon Dioxide 13 L BUN 16 Creatinine 2.33 H Estimated GFR 39 L BUN/Creatinine Ratio 6.9 Glucose 102 H D Hemoglobin A1c Lactate Calcium 7.3 L Magnesium Total Bilirubin Conjugated Bilirubin Unconjugated Bilirubin AST ALT Alkaline Phosphatase Total Creatine Kinase Total Protein Albumin Globulin Albumin/Globulin Ratio Lipase Procalcitonin SARS-CoV-2 (PCR) Negative 02/22/22 02/23/22 02/23/22 19:15 00:25 00:25 WBC RBC Hgb Hct MCV MCH MCHC RDW Plt Count Neut % (Auto) Lymph % (Auto) [place] % (Auto) Eos % (Auto) Baso % (Auto) Neut # (Auto) Lymph # (Auto) [place] # (Auto) Eos # (Auto) Baso # (Auto) Sodium Potassium Chloride Carbon Dioxide BUN Creatinine Estimated GFR BUN/Creatinine Ratio Glucose Hemoglobin A1c 5.0 Lactate 1.7 Calcium Magnesium Total Bilirubin Conjugated Bilirubin Unconjugated Bilirubin AST ALT Alkaline Phosphatase Total Creatine Kinase Total Protein Albumin Globulin Albumin/Globulin Ratio Lipase Procalcitonin 16.7 H SARS-CoV-2 (PCR) 02/23/22 02/23/22 02/23/22 00:25 06:31 06:31 WBC 22.5 H RBC 3.75 L Hgb 11.4 L Hct 32.8 L MCV 87.4 MCH 30.3 MCHC 34.7 RDW 13.3 Plt Count 191 Neut % (Auto) 88.0 H Lymph % (Auto) 5.6 L [place] % (Auto) 6.3 Eos % (Auto) 0.0 L Baso % (Auto) 0.1 Neut # (Auto) 40241 H Lymph # (Auto) 1300 [place] # (Auto) 1400 H Eos # (Auto) 0 Baso # (Auto) 0 Sodium 144 Potassium 3.9 Chloride 117 H Carbon Dioxide 14 L BUN 22 H Creatinine 4.52 H Estimated GFR 18 L BUN/Creatinine Ratio 4.9 L Glucose 105 H Hemoglobin A1c Lactate Calcium 8.1 L Magnesium 2.6 H Total Bilirubin Conjugated Bilirubin Unconjugated Bilirubin AST ALT Alkaline Phosphatase Total Creatine Kinase Total Protein Albumin Globulin Albumin/Globulin Ratio Lipase 454 H Procalcitonin SARS-CoV-2 (PCR) 02/23/22 02/23/22 02/23/22 06:31 09:40 13:45 WBC RBC Hgb Hct MCV MCH MCHC RDW Plt Count Neut % (Auto) Lymph % (Auto) [place] % (Auto) Eos % (Auto) Baso % (Auto) Neut # (Auto) Lymph # (Auto) [place] # (Auto) Eos # (Auto) Baso # (Auto) Sodium 142 Potassium 4.4 Chloride 118 H Carbon Dioxide 14 L BUN 28 H Creatinine 5.58 H Estimated GFR 14 L BUN/Creatinine Ratio 5.0 L Glucose 98 Hemoglobin A1c Lactate Calcium 8.1 L Magnesium Total Bilirubin 0.4 Conjugated Bilirubin 0.0 Unconjugated Bilirubin 0.4 AST 91 H ALT 37 Alkaline Phosphatase 56 Total Creatine Kinase 71026 H D Total Protein 6.5 Albumin 3.9 Globulin 2.6 Albumin/Globulin Ratio 1.5 Lipase Procalcitonin SARS-CoV-2 (PCR) PFSH Medical History (Updated 02/23/22 @ 02:21 by MIGUEL Fine) Bipolar 1 disorder Renal insufficiency Seizure disorder Surgical History (Updated 02/23/22 @ 02:21 by MIGUEL Fine) Hx of adenoidectomy Hx of tonsillectomy Family History (Updated 02/23/22 @ 02:32 by MIGUEL Fine) Mother Diabetes mellitus Father Alive and well Social History household members: family Smoking Status: Current every day smoker alcohol intake: current Assessment & Plan Assessment & Plan narrative: Leeroy Wilson was admitted after seizure in his home in the setting of non- compliance. Now with worsening PAU likely due to rhabdomyolysis after seizure, possibly also with acute cholecystitis though this seems less likely. 1. Seizure disorder acute, present on admission - unclear at this time if possible infection increased seizure risk, but not currently taking medication reliably at home. - will continue to adjust keppra for his worsening kidney function. Consider alternative agents. 2. Possible acute cholecystitis - US showed GBWT and gallstones. However patient is without abdominal pain and symptoms could be better explained in setting of renal dysfunction. - will continue zosyn for now given US findings, consider general surgery consultation but more urgent matter at this time is his renal failure and rhabdomyolysis. 3. Acute kidney injury, present on admission - creatinine rising today, baseline is normal. Suspect due to rehabdomyolysis. Continue to monitor urine output closely. Will increase fluids dramatically given CK now >83635. - depending on trend consider transfer for nephrology / poss. dialysis. - check UA and renal ultrasound. - no current electrolyte distrubances. Only issue is acidosis. 4. Rhabdomyolysis, acute, present on admission. - continue IV fluids as noted above. Trend daily CK until improving <5000. 5. Bipolar disorder - He takes Abilify 5 mg p.o. daily however he has not taken this in a while as he ran out - Continue home dose of Lexapro 10 mg p.o. daily VTE Prophylaxis: Wells risk score 1.5 Enoxaparin 30 mg subQ once daily? Bilateral SCDs Dispo: inpatient. Discharge likely to home, timing unclear. May need transfer depending on renal function. Consultants:? None Dispo: probable discharge to home, timing unclear but atleast 2-3 days. May need transfer as noted above. Code status: Full code as discussed with the patient who identifies his mother, Ginger as? his surrogate and POA. [X] I have utilized all available immediate resources to obtain, update, or review of the patient's current medications Time Spent With Patient Critical Care time: I spent a total of [] minutes of critical care time on this patient's care today; this time is exclusive of procedural time. Quality VTE Deep Vein Thrombosis/Pulmonary Embolism Present on Admission: No
[2022-02-23] MEDS: levETIRAcetam 500 MG in SODIUM CHLORIDE 0.9% 100 ML 420 ML IV (20:53)
[2022-02-23] MEDS: SODIUM CHLORIDE 0.9% 1,000 ML 400 ML IV (22:08)
[2022-02-23 23:15] LABS: BUN Creatinine Ratio 4.6 (6-22); Blood Urea Nitrogen 31 mg/dL (9-20); Calcium 7.4 mg/dL (8.4-10.2); Carbon Dioxide 12 mmol/L (22-32); Chloride 116 mmol/L (98-107); Estimated Glomerular Filt Rate 11 mL/min (>60); Glucose 94 mg/dL (70-100); HEMOLYSIS < 15 (0-50); Potassium 4.4 mmol/L (3.4-5.1); Sodium 140 mmol/L (137-145)
[2022-02-24] VITALS (10 sets, daily range): BP systolic 137–161; BP diastolic 81–96; PULSE 79–92; RESP 18–38; TEMP 36.7–36.9; O2SAT 92–97
[2022-02-24] MEDS: ONDANSETRON 4 MG/2 ML INJ IV ×2 (00:16→08:32)
[2022-02-24] MEDS: SODIUM CHLORIDE 0.9% 1,000 ML 400 ML IV ×4 (00:34→08:41)
[2022-02-24 01:58] LABS: Appearance Urine UA CLEAR; Bilirubin Urine UA NEGATIVE (NEGATIVE); Color Urine UA YELLOW; Glucose Urine UA TRACE g/dL (Negative); Ketones Urine UA TRACE (NEGATIVE); Leukocyte Esterase Urine UA TRACE (NEGATIVE); Nitrite Urine UA NEGATIVE (Negative); Occult Blood Urine UA 3+ (Negative); Protein Urine UA 3+ (Negative); Urobilinogen Urine UA 0.2 E.U./dL (0.2); pH Urine UA 6.5 (4.5-8.0)
[2022-02-24 02:11] LABS: Bacteria Urine None Seen; Culture Indicated Urine Specimen Cultured; RBC Urine 1-5/HPF (0-5/HPF); WBC Urine 0-1/HPF (0-5/HPF)
[2022-02-24] MEDS: PIPERACILLIN/TAZO 3.375 GM in SODIUM CHLORIDE 0.9% 100 ML 25 ML IV ×2 (02:12→15:06)
[2022-02-24] MEDS: METOCLOPRAMIDE 10 MG/2 ML INJ IV (05:46)
[2022-02-24 05:56] LABS: Add Manual Diff / Slide Review NO; Basophils Absolute Auto 0 /uL (0-100); Basophils Percent Auto 0.2 % (0-2); Eosinophils Absolute Auto 0 /uL (0-450); Hematocrit 36.9 % (41-53); Hemoglobin 12.1 g/dL (13.5-17.5); Lymphocytes Absolute Auto 1400 /uL (1100-4500); Lymphocytes Percent Auto 6.1 % (25-40); Mean Corpuscular HGB Conc 32.7 % (30-36); Mean Corpuscular Hemoglobin 29.5 PG (26-34); Mean Corpuscular Volume 90.2 fL (80-100); Monocytes Absolute Auto 1100 /uL (0-900); Monocytes Percent Auto 4.8 % (3-14); Neutrophils Absolute Auto 20600 /uL (1500-7000); Neutrophils Percent Auto 88.9 % (50-75); Platelet Count 202 X10^3/uL (150-400); Red Blood Cell Count 4.09 X10^6/uL (4.5-5.9); Red Cell Distribution Width 12.9 % (11.6-14.8); White Blood Cell Count 23.1 X10^3/uL (4.5-11.0)
[2022-02-24 06:00] LABS: Lipase 91 U/L (23-300)
[2022-02-24 06:01] LABS: BUN Creatinine Ratio 4.7 (6-22); Blood Urea Nitrogen 34 mg/dL (9-20); Calcium 7.1 mg/dL (8.4-10.2); Chloride 117 mmol/L (98-107); Estimated Glomerular Filt Rate 10 mL/min (>60); Glucose 89 mg/dL (70-100); HEMOLYSIS 31 (0-50); Potassium 4.5 mmol/L (3.4-5.1); Sodium 141 mmol/L (137-145)
[2022-02-24 06:03] LABS: Lactate (Lactic Acid) 1.5 mmol/L (0.7-2.1)
[2022-02-24 06:04] LABS: Alanine Aminotransferase 85 IU/L (<50); Albumin 3.3 g/dL (3.5-5.0); Albumin Globulin Ratio 1.3 (1.0-2.8); Alkaline Phosphatase 59 U/L (38-126); Aspartate Aminotransferase 387 IU/L (17-59); Bilirubin Total 0.7 mg/dL (0.2-1.3); Bilirubin Unconjugated 0.6 mg/dL (0.0-1.1); Carbon Dioxide 9 mmol/L (22-32); Globulin 2.5 g/dL (1.7-4.1); HEMOLYSIS < 15 (0-50); Total Protein 5.8 g/dL (6.3-8.2)
[2022-02-24 06:17] LABS: Creatine Kinase 53782 U/L (55-170)
[2022-02-24 06:48] LABS: Phosphorous 4.4 mg/dL (2.5-4.5)
[2022-02-24] MEDS: levETIRAcetam 500 MG in SODIUM CHLORIDE 0.9% 100 ML 420 ML IV ×2 (06:49→19:32)
[2022-02-24 07:16] LABS: Sodium Urine Random 79 mmol/L (30-90)
--- NOTE | 2022-02-24 08:02 | P.DS_ITS ---
History of Present Illness History of Present Illness Date Patient Seen: 02/24/22 Time Patient Seen: 08:03 Chief complaint: seizure Narrative: Per MIGUEL Fine: Leeroy Wilson is a 26 y.o. male with a history of a seizure disorder and is unable to provide a history. His mother is in the room and states his sister administers his medications and he missed his doses on SaturdayFebruary 21 pm dose and on his February 22 am dose. She said he began muttering on Saturday and at 6 am, the , a housemate found him in the bathroom seizing.? She states he has a newer diagnosis of bipolar and anxiety.? He was asked to be admitted because he has been in the ED for over 10 hours and has not woken up concerning for an anoxic brain injury. In the ED, he was administered on IV dose of keppra 1000 mg x 1, and upon arrival to the floor was administered another dose of 1000 mgs.? He arrived afebrile, blood pressure 126/72, heart rate 76, respiratory rate 22, oxygen saturation of 99% on room air, he weighs 71.3 kg with a BMI of 23.5.? His initial WBC was 31.9 and is currently 25, current RBC is 3.78, hemoglobin 11.3 hematocrit 33 0.1 platelet count is normal, he has a significant left shift of 29,000 with a bandemia of 19%.? He is acidotic with a pH of 7.33 ABG PO2 is 46 he has a normal pCO2 of 30.4 ABG O2 was 79%.? Sodium was 143 potassium 4.1 chloride 118 bicarb 13 creatinine 2.33 with an EGFR of 39, glucose 102, A1c 5.0, calcium 7.3, with a normal albumin, his procalcitonin is 16.7 and his lipase is pending.? UA has uric acid crystals but no bacteria, urine toxicology screen is positive for marijuana and COVID-19 PCR is negative. Discharge Providers Provider Date of admission: 02/22/22 19:39 Discharge Date: 02/24/22 Primary care physician: Fatmata Duong MD Discharge provider: Shun Enriquez DO Summary Hospital Course Discharge Diagnosis: Please see hospital course by problem list noted below. Hospital Course: Leeroy Wilson was admitted after seizure in his home in the setting of non- compliance. Now with worsening PAU likely due to rhabdomyolysis after seizure, possibly also with acute cholecystitis though this seems less likely. Transferred to another facility for higher level of care. 1. acute anuric renal failure. ?- creatinine continues to rise today, baseline is normal. Suspect due to rehabdomyolysis. UA shows 3+ blood with 1-5 RBC. No other significant findings. Continue to monitor urine output closely. IV fluids now at 400 cc per hour of NS ?- renal ultrasound ordered but not yet performed. ?- no current electrolyte distrubances. Only issue is acidosis and possibly developing volume overload with edema and acute respiratory failure. K is 4.5 and phos is 4.4 02/24 AM labs. - discussed with Dr. Qureshi at [facility]. Recommended initiation of bicarb infusion at 150 cc per hour given acidosis and transfer to [facility] for possible dialysis. There were no beds available. - initially refused lee catheter but this was placed evening of 02/24. After 2 hours of placement only 5 cc of urine output. - had been on 400 cc of NS for >24 hours, this was stopped this evening for volume overload and worsening respiratory failure. Continues on bicarb. Was increased by metal tile lather. 2. Rhabdomyolysis, acute, present on admission. ?- continue IV fluids as noted above. CK >50,000 this AM. UA as noted above. [place] admit [place] 403[place] [address] on HD#1 and today it rony to 53,782 despite fluid resuscitation. - no evidence of crush injury on exam or compartment syndrome. Suspect due to seizure. 3. Seizure disorder acute, present on admission ?- not currently taking medication reliably at home. ?- will continue to adjust keppra for his worsening kidney function, currently 500 mg BID IV. Consider alternative agents and neurology consultation which is not available at [facility]. 4. Possible acute cholecystitis ?- Given nausea and vomiting with leukocytosis infectious workup was obtained. No other obvious signs of infection but US showed GBWT (minimal at 3.6mm) and gallstones. However patient is without abdominal pain and symptoms could be better explained in setting of renal dysfunction. ?- continued zosyn given US findings, consider general surgery consultation but more urgent matter at this time is his renal failure and rhabdomyolysis. 5. Bipolar disorder ?- He takes Abilify 5 mg p.o. daily however he has not taken this in a while as he ran out - Continue home dose of Lexapro 10 mg p.o. daily once able to tolerate more oral intake. Dispo: transfer to higher level of care. Dr. Bernabe metal tile lather accepting. Code status: Full code as discussed with the patient who identifies his mother, Ginger as? his surrogate and POA. Time Spent with Patient Time spent: Greater than 30 minutes Exam Vital Signs (past 8 hours): - 02/24/22 04:12 02/24/22 06:53 Temperature 98.4 F Pulse Rate 82 79 Respiratory Rate 21 Blood Pressure 137/88 Pulse Oximetry 93 96 Oxygen Delivery Method Room Air Oxygen Flow Rate 5 Narrative Exam Narrative: General:? Patient is well developed and well nourished, in no distress at this time but does appear ill. Vomiting frequently. HEENT:? Normocephalic, atraumatic, extraocular muscles intact, oral pharynx is clear and mucous membranes are dry. Neck: supple and symmetric, trachea is midline, no cervical adenopathy. Negative for JVD Chest:? Normal AP diameter and contour without kyphoscoliosis, no tachypnea, equal chest rise bilaterally. Lungs:? bibasilar rales without wheezing. Poor effort. Cardio:?RRR no m/r/g. Abdomen: S NT ND. No CVA tenderness. Musculoskeletal:? Muscle strength and tone are equal within normal limits, no deformity. Extremities: or joint effusions. No cyanosis or clubbing. Trace edema in all extremities, more prominent upper extremities this morning. Skin:? Pale,? Warm to touch,dry and intact without rashes, ulcerations or petechiae.?Some bruising and minor scrapes in bilateral LE. Neuro:? Alert and orientated x3,?but does seem mildly confused. sensation to touch intact in all extremities, no gross deficits noted of cranial nerves. Psych:? Patient has a well-kept appearance, appropriate affect, mental status attitude thought context and judgment are appropriate for age Objective Labs Result Diagrams: 02/24/22 05:25 02/24/22 15:48 Labs: Laboratory Results - last 24 hr 02/23/22 02/23/22 02/23/22 09:40 13:45 22:57 WBC RBC Hgb Hct MCV MCH MCHC RDW Plt Count Neut % (Auto) Lymph % (Auto) [place] % (Auto) Eos % (Auto) Baso % (Auto) Neut # (Auto) Lymph # (Auto) [place] # (Auto) Eos # (Auto) Baso # (Auto) Sodium 142 140 Potassium 4.4 4.4 Chloride 118 H 116 H Carbon Dioxide 14 L 12 L BUN 28 H 31 H Creatinine 5.58 H 6.69 H Estimated GFR 14 L 11 L BUN/Creatinine Ratio 5.0 L 4.6 L Glucose 98 94 Lactate Calcium 8.1 L 7.4 L Phosphorus Total Bilirubin Conjugated Bilirubin Unconjugated Bilirubin AST ALT Alkaline Phosphatase Total Creatine Kinase 22947 H D Total Protein Albumin Globulin Albumin/Globulin Ratio Lipase Urine Color Urine Appearance Urine pH Ur Specific [place] Urine Protein Urine Glucose (UA) Urine Ketones Urine Occult Blood Urine Nitrate Urine Bilirubin Urine Urobilinogen Ur Leukocyte Esterase Urine RBC Urine WBC Urine Bacteria Ur Culture Indicated? Ur Random Sodium 02/23/22 02/23/22 02/24/22 23:45 23:45 05:25 WBC 23.1 H RBC 4.09 L Hgb 12.1 L Hct 36.9 L MCV 90.2 MCH 29.5 MCHC 32.7 RDW 12.9 Plt Count 202 Neut % (Auto) 88.9 H Lymph % (Auto) 6.1 L [place] % (Auto) 4.8 Eos % (Auto) 0.0 L Baso % (Auto) 0.2 Neut # (Auto) 24683 H Lymph # (Auto) 1400 [place] # (Auto) 1100 H Eos # (Auto) 0 Baso # (Auto) 0 Sodium Potassium Chloride Carbon Dioxide BUN Creatinine Estimated GFR BUN/Creatinine Ratio Glucose Lactate Calcium Phosphorus Total Bilirubin Conjugated Bilirubin Unconjugated Bilirubin AST ALT Alkaline Phosphatase Total Creatine Kinase Total Protein Albumin Globulin Albumin/Globulin Ratio Lipase Urine Color Yellow Urine Appearance Clear Urine pH 6.5 Ur Specific [place] 1.010 Urine Protein 3+ H Urine Glucose (UA) Trace H Urine Ketones Trace H Urine Occult Blood 3+ H Urine Nitrate Negative Urine Bilirubin Negative Urine Urobilinogen 0.2 Ur Leukocyte Esterase Trace H Urine RBC 1-5/hpf Urine WBC 0-1/hpf Urine Bacteria None seen Ur Culture Indicated? Specimen cultured Ur Random Sodium 79 02/24/22 02/24/22 02/24/22 05:25 05:25 05:25 WBC RBC Hgb Hct MCV MCH MCHC RDW Plt Count Neut % (Auto) Lymph % (Auto) [place] % (Auto) Eos % (Auto) Baso % (Auto) Neut # (Auto) Lymph # (Auto) [place] # (Auto) Eos # (Auto) Baso # (Auto) Sodium 141 Potassium 4.5 Chloride 117 H Carbon Dioxide 9 L* BUN 34 H Creatinine 7.24 H Estimated GFR 10 L BUN/Creatinine Ratio 4.7 L Glucose 89 Lactate Calcium 7.1 L Phosphorus Total Bilirubin 0.7 Conjugated Bilirubin 0.0 Unconjugated Bilirubin 0.6 AST 387 H ALT 85 H Alkaline Phosphatase 59 Total Creatine Kinase 24234 H D Total Protein 5.8 L Albumin 3.3 L Globulin 2.5 Albumin/Globulin Ratio 1.3 Lipase Urine Color Urine Appearance Urine pH Ur Specific [place] Urine Protein Urine Glucose (UA) Urine Ketones Urine Occult Blood Urine Nitrate Urine Bilirubin Urine Urobilinogen Ur Leukocyte Esterase Urine RBC Urine WBC Urine Bacteria Ur Culture Indicated? Ur Random Sodium 02/24/22 02/24/22 02/24/22 05:25 05:25 05:25 WBC RBC Hgb Hct MCV MCH MCHC RDW Plt Count Neut % (Auto) Lymph % (Auto) [place] % (Auto) Eos % (Auto) Baso % (Auto) Neut # (Auto) Lymph # (Auto) [place] # (Auto) Eos # (Auto) Baso # (Auto) Sodium Potassium Chloride Carbon Dioxide BUN Creatinine Estimated GFR BUN/Creatinine Ratio Glucose Lactate 1.5 Calcium Phosphorus 4.4 Total Bilirubin Conjugated Bilirubin Unconjugated Bilirubin AST ALT Alkaline Phosphatase Total Creatine Kinase Total Protein Albumin Globulin Albumin/Globulin Ratio Lipase 91 D Urine Color Urine Appearance Urine pH Ur Specific [place] Urine Protein Urine Glucose (UA) Urine Ketones Urine Occult Blood Urine Nitrate Urine Bilirubin Urine Urobilinogen Ur Leukocyte Esterase Urine RBC Urine WBC Urine Bacteria Ur Culture Indicated? Ur Random Sodium [facility] Medical History (Updated 02/23/22 @ 02:21 by MIGUEL Fine) Bipolar 1 disorder Renal insufficiency Seizure disorder Surgical History (Updated 02/23/22 @ 02:21 by MIGUEL Fine) Hx of adenoidectomy Hx of tonsillectomy Family History (Updated 02/23/22 @ 02:32 by MIGUEL Fine) Mother Diabetes mellitus Father Alive and well Social History household members: family Smoking Status: Current every day smoker alcohol intake: current Discharge Plan Discharge Plan Disposition: Xfer Acute Care Hospital Discharge orders & Medications Follow up/Referrals: Fatmata Duong MD [Primary Care Provider] - Discharge Data Primary Care Provider: Fatmata Duong Quality VTE Deep Vein Thrombosis/Pulmonary Embolism Present on Admission: No
[2022-02-24 08:30] LABS: HCO3 ABG 9 mmol/L (22-26); PCO2 ABG 20.5 mmHg (35-45); PO2 ABG 67 mmHg (80-100); TCO2 ABG 9 mmol/L (21-31); pH ABG 7.24 (7.35-7.45)
[2022-02-24 08:32] LABS: Oxygen Saturation ABG 90 % (95-100)
[2022-02-24 08:36] LABS: Fractionated Inspired Oxygen 32
[2022-02-24] MEDS: SODIUM BICARB 8.4% VIAL 100 MEQ in DEXTROSE 5% WATER 1,000 ML 150 MEQ IV ×2 (09:46→17:32)
--- NOTE | 2022-02-24 10:48 | CM.IDA ---
Initial DCP Assessment Note Pt is a 26 yo male, resident of [place], arrives after witnessed seizure at home in the setting of non-compliance, now with worsening PAU and requiring transfer for dialysis PMH includes Bipolar 1 Disorder, seizure disorder, Renal insufficiency PCP: Fatmata Duong Payer: [employer] Reviewed chart, pt discussed in multidisciplinary rounds this morning. Supportive mother at bedside; RN Coordinator now attempting transfer to higher level of care. No needs expected from DC planning team although will remain available in case this changes today. Will need further assessment of need of patient remains admitted at [facility]
--- NOTE | 2022-02-24 14:12 | DI.RAD.S_ITS ---
PROCEDURE: XR CHEST 1V INDICATIONS: increasing oxygen needs, fluid overload? TECHNIQUE: One view of the chest was acquired. COMPARISON: [facility], CR, XR CHEST 1V, 02/22/2022, 17:21. FINDINGS: Surgical changes and devices: None. Lungs and pleura: Lungs are clear. No pleural effusions or pneumothorax. Mediastinum: Heart size within normal limits. There is mild vascular congestion noted pleural spaces are clear. Bones and chest wall: No suspicious bony lesions. Overlying soft tissues appear unremarkable. IMPRESSION: Mild vascular congestion with normal heart size Approved by: Leeroy Woodall M.D. on 02/24/2022 at 14:01
--- NOTE | 2022-02-24 14:13 | PM.CN.EICU ---
History of Present Illness Consult details Date Patient Seen: 02/24/22 Chief complaint: seizure Reason for consult: acute renal failure, acidosis :: This patient was seen via real time interactive two-way audiovisual telecommunication. talking full sentences no compalins [facility] Medical History (Updated 02/23/22 @ 02:21 by MIGUEL Fine) Bipolar 1 disorder Renal insufficiency Seizure disorder Surgical History (Updated 02/23/22 @ 02:21 by MIGUEL Fine) Hx of adenoidectomy Hx of tonsillectomy Family History (Updated 02/23/22 @ 02:32 by MIGUEL Fine) Mother Diabetes mellitus Father Alive and well Social History household members: family Smoking Status: Current every day smoker alcohol intake: current Current Medications Current Medications Medications: Home Medications escitalopram oxalate 10 mg tablet 10 mg PO DAILY 09/20/21 [History Confirmed 02/22/22] levetiracetam 500 mg tablet,extended release 24 hr 2,000 mg PO QPM 09/20/21 [History Confirmed 02/22/22] levetiracetam 500 mg tablet,extended release 24 hr 1,500 mg PO DAILY 02/22/22 [History Confirmed 02/23/22] Visit Medications (administered) Generic Name Dose Route Start Last Admin Trade Name Freq PRN Reason Stop Dose Admin Aripiprazole 5 mg 02/23/22 09:00 02/24/22 08:37 Aripiprazole 10 Mg Tablet PO Not Given DAILY MIKAELA Enoxaparin Sodium 30 mg 02/24/22 09:00 02/24/22 08:38 Enoxaparin 30 Mg/0.3 Ml Syringe SUBCUT Not Given DAILY MIKAELA Escitalopram Oxalate 10 mg 02/23/22 09:00 02/24/22 08:37 Escitalopram 10 Mg Tablet PO Not Given DAILY MIKAELA Sodium Chloride 1,000 mls @ 400 mls/hr 02/22/22 22:45 02/24/22 09:46 Normal Saline 0.9% IV 0 mls/hr CONT MIKAELA Infusion Piperacillin Sod/Tazobactam 100 mls @ 25 mls/hr 02/24/22 02:00 02/24/22 06:52 Sod 3.375 gm/ Sodium Chloride IV Infused Q12H MIKAELA Infusion Levetiracetam 500 mg/ Sodium 105 mls @ 420 mls/hr 02/23/22 19:30 02/24/22 12:53 Chloride IV Infused Q12H MIKAELA Infusion Sodium Bicarbonate 100 meq/ 1,100 mls @ 150 mls/hr 02/24/22 08:00 02/24/22 09:46 Dextrose IV 150 mls/hr CONT MIKAELA Administration Metoclopramide HCl 10 mg 02/24/22 05:15 02/24/22 05:46 Metoclopramide 10 Mg/2 Ml Inj IV 10 mg Q6HR PRN Administration Nausea And Vomiting Ondansetron HCl 4 mg 02/23/22 00:06 02/24/22 08:32 Ondansetron 4 Mg/2 Ml Inj IV 4 mg Q6HR PRN Administration Nausea And Vomiting Exam Vital Signs (past 8 hours): - 02/24/22 06:53 02/24/22 07:00 02/24/22 08:00 Temperature 98.1 F Pulse Rate 79 83 Respiratory Rate 18 Blood Pressure 144/81 H Pulse Oximetry 96 95 93 02/24/22 08:10 02/24/22 11:00 Temperature 98.5 F Pulse Rate 92 H Respiratory Rate 19 Blood Pressure 143/94 H Pulse Oximetry 95 97 Oxygen Delivery Method Nasal Cannula Oxygen Flow Rate 5 Objective Labs Result Diagrams: 02/24/22 05:25 02/24/22 05:25 Labs: Laboratory Results - last 24 hr 02/23/22 02/23/22 02/23/22 13:45 22:57 23:45 WBC RBC Hgb Hct MCV MCH MCHC RDW Plt Count Neut % (Auto) Lymph % (Auto) [place] % (Auto) Eos % (Auto) Baso % (Auto) Neut # (Auto) Lymph # (Auto) [place] # (Auto) Eos # (Auto) Baso # (Auto) ABG pH ABG pCO2 ABG pO2 ABG HCO3 ABG Total CO2 ABG O2 Saturation ABG Base Excess FiO2 Sodium 142 140 Potassium 4.4 4.4 Chloride 118 H 116 H Carbon Dioxide 14 L 12 L BUN 28 H 31 H Creatinine 5.58 H 6.69 H Estimated GFR 14 L 11 L BUN/Creatinine Ratio 5.0 L 4.6 L Glucose 98 94 Lactate Calcium 8.1 L 7.4 L Phosphorus Total Bilirubin Conjugated Bilirubin Unconjugated Bilirubin AST ALT Alkaline Phosphatase Total Creatine Kinase Total Protein Albumin Globulin Albumin/Globulin Ratio Lipase Urine Color Yellow Urine Appearance Clear Urine pH 6.5 Ur Specific [place] 1.010 Urine Protein 3+ H Urine Glucose (UA) Trace H Urine Ketones Trace H Urine Occult Blood 3+ H Urine Nitrate Negative Urine Bilirubin Negative Urine Urobilinogen 0.2 Ur Leukocyte Esterase Trace H Urine RBC 1-5/hpf Urine WBC 0-1/hpf Urine Bacteria None seen Ur Culture Indicated? Specimen cultured Ur Random Sodium 02/23/22 02/24/22 02/24/22 23:45 05:25 05:25 WBC 23.1 H RBC 4.09 L Hgb 12.1 L Hct 36.9 L MCV 90.2 MCH 29.5 MCHC 32.7 RDW 12.9 Plt Count 202 Neut % (Auto) 88.9 H Lymph % (Auto) 6.1 L [place] % (Auto) 4.8 Eos % (Auto) 0.0 L Baso % (Auto) 0.2 Neut # (Auto) 47130 H Lymph # (Auto) 1400 [place] # (Auto) 1100 H Eos # (Auto) 0 Baso # (Auto) 0 ABG pH ABG pCO2 ABG pO2 ABG HCO3 ABG Total CO2 ABG O2 Saturation ABG Base Excess FiO2 Sodium 141 Potassium 4.5 Chloride 117 H Carbon Dioxide 9 L* BUN 34 H Creatinine 7.24 H Estimated GFR 10 L BUN/Creatinine Ratio 4.7 L Glucose 89 Lactate Calcium 7.1 L Phosphorus Total Bilirubin Conjugated Bilirubin Unconjugated Bilirubin AST ALT Alkaline Phosphatase Total Creatine Kinase Total Protein Albumin Globulin Albumin/Globulin Ratio Lipase Urine Color Urine Appearance Urine pH Ur Specific [place] Urine Protein Urine Glucose (UA) Urine Ketones Urine Occult Blood Urine Nitrate Urine Bilirubin Urine Urobilinogen Ur Leukocyte Esterase Urine RBC Urine WBC Urine Bacteria Ur Culture Indicated? Ur Random Sodium 79 02/24/22 02/24/22 02/24/22 05:25 05:25 05:25 WBC RBC Hgb Hct MCV MCH MCHC RDW Plt Count Neut % (Auto) Lymph % (Auto) [place] % (Auto) Eos % (Auto) Baso % (Auto) Neut # (Auto) Lymph # (Auto) [place] # (Auto) Eos # (Auto) Baso # (Auto) ABG pH ABG pCO2 ABG pO2 ABG HCO3 ABG Total CO2 ABG O2 Saturation ABG Base Excess FiO2 Sodium Potassium Chloride Carbon Dioxide BUN Creatinine Estimated GFR BUN/Creatinine Ratio Glucose Lactate 1.5 Calcium Phosphorus Total Bilirubin 0.7 Conjugated Bilirubin 0.0 Unconjugated Bilirubin 0.6 AST 387 H ALT 85 H Alkaline Phosphatase 59 Total Creatine Kinase 79905 H D Total Protein 5.8 L Albumin 3.3 L Globulin 2.5 Albumin/Globulin Ratio 1.3 Lipase Urine Color Urine Appearance Urine pH Ur Specific [place] Urine Protein Urine Glucose (UA) Urine Ketones Urine Occult Blood Urine Nitrate Urine Bilirubin Urine Urobilinogen Ur Leukocyte Esterase Urine RBC Urine WBC Urine Bacteria Ur Culture Indicated? Ur Random Sodium 02/24/22 02/24/22 02/24/22 05:25 05:25 08:07 WBC RBC Hgb Hct MCV MCH MCHC RDW Plt Count Neut % (Auto) Lymph % (Auto) [place] % (Auto) Eos % (Auto) Baso % (Auto) Neut # (Auto) Lymph # (Auto) [place] # (Auto) Eos # (Auto) Baso # (Auto) ABG pH 7.24 L* ABG pCO2 20.5 L* ABG pO2 67 L ABG HCO3 9 L ABG Total CO2 9 L ABG O2 Saturation 90 L ABG Base Excess -19.0 L FiO2 32 Sodium Potassium Chloride Carbon Dioxide BUN Creatinine Estimated GFR BUN/Creatinine Ratio Glucose Lactate Calcium Phosphorus 4.4 Total Bilirubin Conjugated Bilirubin Unconjugated Bilirubin AST ALT Alkaline Phosphatase Total Creatine Kinase Total Protein Albumin Globulin Albumin/Globulin Ratio Lipase 91 D Urine Color Urine Appearance Urine pH Ur Specific [place] Urine Protein Urine Glucose (UA) Urine Ketones Urine Occult Blood Urine Nitrate Urine Bilirubin Urine Urobilinogen Ur Leukocyte Esterase Urine RBC Urine WBC Urine Bacteria Ur Culture Indicated? Ur Random Sodium Assessment & Plan Assessment & Plan narrative: patient seen with bedside nurse chart/labs/imaging reviewed 26 year old male with PMHx of seizure disoder found down in bathroom admitted to ICU for acute renal failure metabolic acidosis rhabdomyolysis currently afebrile, HD stable mental status intact sob on exerion labs significant for severe metabolic acidosis cre 7 ck 500ss suggest -check stat abg/cxr -if acidosis not improved would suggest intubation -continue bicarb drip -stat transfer to outside hospital for emergent hd -monitor for overload -avoid benzo unless seizure =continue keppra, consider neuro eval -hold other home meds for now -check cxs -continue abx -keep glucose 140-180s -gi/dvt ppx -please call eICU if condition changes Time Spent With Patient Critical Care time: I spent a total of [] minutes of critical care time on this patient's care today; this time is exclusive of procedural time.
[2022-02-24 14:46] LABS: pH ABG 7.38 (7.35-7.45)
[2022-02-24 14:47] LABS: Fractionated Inspired Oxygen 40; HCO3 ABG 12 mmol/L (22-26); Oxygen Saturation ABG 89 % (95-100); PCO2 ABG 19.8 mmHg (35-45); PO2 ABG 57 mmHg (80-100); TCO2 ABG 12 mmol/L (21-31)
[2022-02-24 16:05] LABS: Blood Urea Nitrogen 39 mg/dL (9-20); Calcium 7.6 mg/dL (8.4-10.2); Carbon Dioxide 14 mmol/L (22-32); Chloride 115 mmol/L (98-107); Glucose 117 mg/dL (70-100); HEMOLYSIS < 15 (0-50); Sodium 141 mmol/L (137-145)
[2022-02-24 16:14] LABS: BUN Creatinine Ratio 4.8 (6-22); Estimated Glomerular Filt Rate 9 mL/min (>60)
--- NOTE | 2022-02-24 17:42 | PC.NURSE ---
Addendum entered by Brenda Albert R.N. 02/24/22 18:39: Patient voided 25 ml. Order received to place lee catheter for accurate urine output which was done, pt tolerated well. No urine output at this time. Original Note: Transfer/Day Shift Note Patient to room 227 from room 206 via bed at 1300. Pt on 5L NC on arrival with SpO2 96% and crackles throughout lung marin. Alert and oriented x3. Denies pain, denies nausea. Minimal PO intake due to N/V. Up to bathroom but had increasing shortness of breath with activity so now using BSC. Desatted to upper 80s and oxygen titrated up to 8L HFNC, SpO2 95% while awake. RR in the 30s, up to 40s with activity. Respirations currently appear unlabored and pt denies feeling short of breath at this time. No void this shift other than 75 ml out prior to transfer to ICU. NSR with rate in the 70-80s. Mother at bedside. Awaiting transfer to higher level of care. Call light within reach, using appropriately to make needs known.
--- NOTE | 2022-02-24 17:57 | PM.PN.1 ---
Subjective Subjective Date Patient Seen: 02/24/22 Time Patient Seen: 17:58 Interval history: More lethargic and tachypnic today. Worsening acidosis and renal failure. Moved to ICU after discussion with nephrology with recommendation for bicarb infusion. have contacted the following hospitals today, [facility], [facility], [facility], , [facility], and , as well as left messages with [facility] and [facility] without any response thus far. [facility] at this time. Exam Vital Signs (past 8 hours): - 02/24/22 11:00 02/24/22 14:57 02/24/22 16:07 Temperature 98.5 F Pulse Rate 92 H 80 Respiratory Rate 19 37 H Blood Pressure 143/94 H 161/96 H Pulse Oximetry 97 92 96 02/24/22 17:06 Temperature Pulse Rate Respiratory Rate 34 H Blood Pressure Pulse Oximetry 95 Oxygen Delivery Method High Flow Nasal Cannula Oxygen Flow Rate 8 Narrative Exam Narrative: General:? Patient is well developed and well nourished, in no distress at this time but does appear ill. Tachypnic. HEENT:? Normocephalic, atraumatic, extraocular muscles intact, oral pharynx is clear and mucous membranes are dry. Neck: supple and symmetric, trachea is midline, no cervical adenopathy. Negative for JVD Chest:? Normal AP diameter and contour without kyphoscoliosis, no tachypnea, equal chest rise bilaterally. Lungs:? bibasilar rales without wheezing. Poor effort. tachypnea. Cardio:?RRR no m/r/g. Abdomen: S NT ND. No CVA tenderness. Musculoskeletal:? Muscle strength and tone are equal within normal limits, no deformity. Extremities: or joint effusions. No cyanosis or clubbing. Trace edema in all extremities, more prominent upper extremities this morning. Skin:? Pale,? Warm to touch,dry and intact without rashes, ulcerations or petechiae.?Some bruising and minor scrapes in bilateral LE. Neuro:? Alert and orientated x3,?but does seem mildly confused. sensation to touch intact in all extremities, no gross deficits noted of cranial nerves. Psych:? Patient has a well-kept appearance, appropriate affect, mental status attitude thought context and judgment are appropriate for age Objective Labs Result Diagrams: 02/24/22 05:25 02/24/22 15:48 Labs: Laboratory Results - last 24 hr 02/23/22 02/23/22 02/23/22 22:57 23:45 23:45 WBC RBC Hgb Hct MCV MCH MCHC RDW Plt Count Neut % (Auto) Lymph % (Auto) [place] % (Auto) Eos % (Auto) Baso % (Auto) Neut # (Auto) Lymph # (Auto) [place] # (Auto) Eos # (Auto) Baso # (Auto) ABG pH ABG pCO2 ABG pO2 ABG HCO3 ABG Total CO2 ABG O2 Saturation ABG Base Excess FiO2 Sodium 140 Potassium 4.4 Chloride 116 H Carbon Dioxide 12 L BUN 31 H Creatinine 6.69 H Estimated GFR 11 L BUN/Creatinine Ratio 4.6 L Glucose 94 Lactate Calcium 7.4 L Phosphorus Total Bilirubin Conjugated Bilirubin Unconjugated Bilirubin AST ALT Alkaline Phosphatase Total Creatine Kinase Total Protein Albumin Globulin Albumin/Globulin Ratio Lipase Urine Color Yellow Urine Appearance Clear Urine pH 6.5 Ur Specific [place] 1.010 Urine Protein 3+ H Urine Glucose (UA) Trace H Urine Ketones Trace H Urine Occult Blood 3+ H Urine Nitrate Negative Urine Bilirubin Negative Urine Urobilinogen 0.2 Ur Leukocyte Esterase Trace H Urine RBC 1-5/hpf Urine WBC 0-1/hpf Urine Bacteria None seen Ur Culture Indicated? Specimen cultured Ur Random Sodium 79 02/24/22 02/24/22 02/24/22 05:25 05:25 05:25 WBC 23.1 H RBC 4.09 L Hgb 12.1 L Hct 36.9 L MCV 90.2 MCH 29.5 MCHC 32.7 RDW 12.9 Plt Count 202 Neut % (Auto) 88.9 H Lymph % (Auto) 6.1 L [place] % (Auto) 4.8 Eos % (Auto) 0.0 L Baso % (Auto) 0.2 Neut # (Auto) 17141 H Lymph # (Auto) 1400 [place] # (Auto) 1100 H Eos # (Auto) 0 Baso # (Auto) 0 ABG pH ABG pCO2 ABG pO2 ABG HCO3 ABG Total CO2 ABG O2 Saturation ABG Base Excess FiO2 Sodium 141 Potassium 4.5 Chloride 117 H Carbon Dioxide 9 L* BUN 34 H Creatinine 7.24 H Estimated GFR 10 L BUN/Creatinine Ratio 4.7 L Glucose 89 Lactate Calcium 7.1 L Phosphorus Total Bilirubin 0.7 Conjugated Bilirubin 0.0 Unconjugated Bilirubin 0.6 AST 387 H ALT 85 H Alkaline Phosphatase 59 Total Creatine Kinase Total Protein 5.8 L Albumin 3.3 L Globulin 2.5 Albumin/Globulin Ratio 1.3 Lipase Urine Color Urine Appearance Urine pH Ur Specific [place] Urine Protein Urine Glucose (UA) Urine Ketones Urine Occult Blood Urine Nitrate Urine Bilirubin Urine Urobilinogen Ur Leukocyte Esterase Urine RBC Urine WBC Urine Bacteria Ur Culture Indicated? Ur Random Sodium 02/24/22 02/24/22 02/24/22 05:25 05:25 05:25 WBC RBC Hgb Hct MCV MCH MCHC RDW Plt Count Neut % (Auto) Lymph % (Auto) [place] % (Auto) Eos % (Auto) Baso % (Auto) Neut # (Auto) Lymph # (Auto) [place] # (Auto) Eos # (Auto) Baso # (Auto) ABG pH ABG pCO2 ABG pO2 ABG HCO3 ABG Total CO2 ABG O2 Saturation ABG Base Excess FiO2 Sodium Potassium Chloride Carbon Dioxide BUN Creatinine Estimated GFR BUN/Creatinine Ratio Glucose Lactate 1.5 Calcium Phosphorus Total Bilirubin Conjugated Bilirubin Unconjugated Bilirubin AST ALT Alkaline Phosphatase Total Creatine Kinase 98759 H D Total Protein Albumin Globulin Albumin/Globulin Ratio Lipase 91 D Urine Color Urine Appearance Urine pH Ur Specific [place] Urine Protein Urine Glucose (UA) Urine Ketones Urine Occult Blood Urine Nitrate Urine Bilirubin Urine Urobilinogen Ur Leukocyte Esterase Urine RBC Urine WBC Urine Bacteria Ur Culture Indicated? Ur Random Sodium 02/24/22 02/24/22 02/24/22 05:25 08:07 14:27 WBC RBC Hgb Hct MCV MCH MCHC RDW Plt Count Neut % (Auto) Lymph % (Auto) [place] % (Auto) Eos % (Auto) Baso % (Auto) Neut # (Auto) Lymph # (Auto) [place] # (Auto) Eos # (Auto) Baso # (Auto) ABG pH 7.24 L* 7.38 ABG pCO2 20.5 L* 19.8 L* ABG pO2 67 L 57 L ABG HCO3 9 L 12 L ABG Total CO2 9 L 12 L ABG O2 Saturation 90 L 89 L ABG Base Excess -19.0 L -14.0 L FiO2 32 40 Sodium Potassium Chloride Carbon Dioxide BUN Creatinine Estimated GFR BUN/Creatinine Ratio Glucose Lactate Calcium Phosphorus 4.4 Total Bilirubin Conjugated Bilirubin Unconjugated Bilirubin AST ALT Alkaline Phosphatase Total Creatine Kinase Total Protein Albumin Globulin Albumin/Globulin Ratio Lipase Urine Color Urine Appearance Urine pH Ur Specific [place] Urine Protein Urine Glucose (UA) Urine Ketones Urine Occult Blood Urine Nitrate Urine Bilirubin Urine Urobilinogen Ur Leukocyte Esterase Urine RBC Urine WBC Urine Bacteria Ur Culture Indicated? Ur Random Sodium 02/24/22 15:48 WBC RBC Hgb Hct MCV MCH MCHC RDW Plt Count Neut % (Auto) Lymph % (Auto) [place] % (Auto) Eos % (Auto) Baso % (Auto) Neut # (Auto) Lymph # (Auto) [place] # (Auto) Eos # (Auto) Baso # (Auto) ABG pH ABG pCO2 ABG pO2 ABG HCO3 ABG Total CO2 ABG O2 Saturation ABG Base Excess FiO2 Sodium 141 Potassium 4.0 Chloride 115 H Carbon Dioxide 14 L BUN 39 H Creatinine 8.19 H* Estimated GFR 9 L BUN/Creatinine Ratio 4.8 L Glucose 117 H Lactate Calcium 7.6 L Phosphorus Total Bilirubin Conjugated Bilirubin Unconjugated Bilirubin AST ALT Alkaline Phosphatase Total Creatine Kinase Total Protein Albumin Globulin Albumin/Globulin Ratio Lipase Urine Color Urine Appearance Urine pH Ur Specific [place] Urine Protein Urine Glucose (UA) Urine Ketones Urine Occult Blood Urine Nitrate Urine Bilirubin Urine Urobilinogen Ur Leukocyte Esterase Urine RBC Urine WBC Urine Bacteria Ur Culture Indicated? Ur Random Sodium PFSH Medical History (Updated 02/23/22 @ 02:21 by MIGUEL Fine) Bipolar 1 disorder Renal insufficiency Seizure disorder Surgical History (Updated 02/23/22 @ 02:21 by MIGUEL Fine) Hx of adenoidectomy Hx of tonsillectomy Family History (Updated 02/23/22 @ 02:32 by MIGUEL Fine) Mother Diabetes mellitus Father Alive and well Social History household members: family Smoking Status: Current every day smoker alcohol intake: current Assessment & Plan Assessment & Plan narrative: Leeroy Wilson was admitted after seizure in his home in the setting of non-compliance. Now with worsening PAU likely due to rhabdomyolysis after seizure, possibly also with acute cholecystitis though this seems less likely. 1. Acute kidney injury, present on admission ?- creatinine continues to rise today, baseline is normal. Suspect due to rehabdomyolysis. UA shows 3+ blood with 1-5 RBC. No other significant findings. Continue to monitor urine output closely.? IV fluids now at? 400 cc per hour of NS ?- renal ultrasound pending ?- no current electrolyte distrubances. Only issue is acidosis and possibly developing volume overload with edema this morning. K is 4.5 and phos is 4.4 02/24 AM labs. ?- discussed with Dr. Qureshi at [facility]. Recommended initiation of bicarb infusion at 150 cc per hour given acidosis and transfer to [facility] for possible dialysis. Have called multiple locations thus far without any bed availability for transfer for probably dialysis. - moved to ICU, slight improvement with bicarb infusion. Appreciate tele-funeral arrangement director consultation, also recommending transfer. 2. Rhabdomyolysis, acute, present on admission. ?- continue IV fluids as noted above. CK >50,000 this AM. UA as noted below. [place] 403[place] [address] [place] HD#1 and today it rony to 53,782 despite fluid resuscitation. ?- no evidence of crush injury on exam or compartment syndrome. Suspect due to seizure. 3. Seizure disorder acute, present on admission ?- not currently taking medication reliably at home. ?- will continue to adjust keppra for his worsening kidney function. Consider alternative agents. ?4. Possible acute cholecystitis ?- Given nausea and vomiting with leukocytosis infectious workup was obtained. No other obvious signs of infection but US showed GBWT (minimal at 3.6mm) and gallstones. However patient is without abdominal pain and symptoms could be better explained in setting of renal dysfunction. ?- will continue zosyn for now given US findings, consider general surgery consultation but more urgent matter at this time is his renal failure and rhabdomyolysis. 5. Bipolar disorder ?- He takes Abilify 5 mg p.o. daily however he has not taken this in a while as he ran out - Continue home dose of Lexapro 10 mg p.o. daily once able to tolerate more oral intake. 6. Acute respiratory failure with hypoxia - currently on 6-8L, tachypnic, likely secondary to volume overload in setting of renal failure and acidemia. - continue bicarb infusion and supportive care at this time. May need intubation if patient continues to tire. Monitor BMP and ABGs. VTE Prophylaxis: Wells risk score 1.5 Enoxaparin 30 mg subQ once daily? Bilateral SCDs Dispo: transfer to higher level of care. Currently ICU and trying to transfer but no beds available despite multiple calls. Consultants:?Dr. Qureshi at [facility]. Code status: Full code as discussed with the patient who identifies his mother, Ginger as? his surrogate and POA. I spent 95 minutes providing critical care management this patient. This excludes time spent in performing separately billed procedures. Time Spent With Patient Critical Care time: I spent a total of [] minutes of critical care time on this patient's care today; this time is exclusive of procedural time. Quality VTE Deep Vein Thrombosis/Pulmonary Embolism Present on Admission: No
[2022-02-24] MEDS: LIDOCAINE JELLY 2% 5 ML 1 APPLIC TOP (18:15)
--- NOTE | 2022-02-24 20:50 | PM.ICURNDS ---
- Date Patient Seen: 02/24/22 Time Patient Seen: 20:45 :: This patient was seen via real time interactive two-way audiovisual telecommunication. Note: Chart reviewed; case discussed with RN, Dr. Enriquez and MIGUELANGEL Argueta. Patient finally agreed to [facility] placement; is anuric. Receiving D5W + 100 mEq NaHCO3 @ 100 mL/hr. Is on 8L/min O2 and pCXR does have some pulmonary congestion. INTERVENTIONS 1) Changed enoxaparin to heparin prophylaxis 2) Increaed NaHCO3 to 150 mEq/L of D5W Is awaiting a bed @ [facility].
--- NOTE | 2022-02-24 22:30 | PC.NURSE ---
220 Report given to receiving RN Leeroy @ [facility]. Transport verified. Pt AAOx4, MAEW, PERRLA 4MM bilaterally. Able to get up to the bedside commode with standby assist. IV in progress, D5W with 150 MEQ NA Bicarb. @ 150ml /hr. Pt having freq liquid stools - small amounts of yellow frothy liquid.
[2022-02-24] MEDS: SODIUM BICARB 8.4% VIAL 150 MEQ in DEXTROSE 5% WATER 1,000 ML IV (22:44)
[2022-02-24 23:28] LABS: BUN Creatinine Ratio 4.7 (6-22); Blood Urea Nitrogen 41 mg/dL (9-20); Calcium 7.4 mg/dL (8.4-10.2); Carbon Dioxide 14 mmol/L (22-32); Chloride 111 mmol/L (98-107); Estimated Glomerular Filt Rate 8 mL/min (>60); Glucose 119 mg/dL (70-100); HEMOLYSIS < 15 (0-50); Potassium 3.7 mmol/L (3.4-5.1); Sodium 137 mmol/L (137-145)
--- NOTE | 2022-02-24 23:55 | PC.NURSE ---
Pt discharged per EMS to [facility].
== END 2022-02-24 23:57 | disposition short-term general hospital (02) | DRG 53 ==
LOC: ED 09:47 → AC 20:17 → ICU 02-24 13:11
PROVIDERS: Internal Medicine; Internal Medicine Critical Care Medicine; Nurse Practitioner Family; Admitting Provider Internal Medicine; Emergency Provider Emergency Medicine; PCP Psychiatry & Neurology Neurology; Referring Provider Emergency Medicine; Visit Provider Internal Medicine
DX: G40.909 Epilepsy, unspecified, not intractable, without status epilepticus (principal); F31.9 Bipolar disorder, unspecified; B99.9 Unspecified infectious disease; N17.9 Acute kidney failure, unspecified; E87.2 Acidosis; M62.82 Rhabdomyolysis; K80.00 Calculus of gallbladder with acute cholecystitis without obstruction; J96.01 Acute respiratory failure with hypoxia; F17.210 Nicotine dependence, cigarettes, uncomplicated; Z20.822 Contact with and (suspected) exposure to COVID-19
CPT/HCPCS: 36415; 36600; 51701; 51798; 70450; 71045; 76705; 80048; 80053; 80076; 80305; 80320; 81001; 82550; 82805; 83036; 83605; 83690; 83735; 84100; 84145; 84300; 85007; 85025; 87040; 87086; 87635; 94762; 96361; 96365; 96367; 96375; 99285; 99291; C9803; C9113; J0696; J1650; J1953; J2405; J2543; J2765

== ENCOUNTER 2022-03-09 09:38 | Emergency (ER) | payer OTHER, MEDICAID, SELFPAY ==
[2022-02-22 21:23] VITALS: BMI 23.5
[2022-03-09] VITALS (27 sets, daily range): BP systolic 141–180; BP diastolic 76–110; PULSE 71–150; RESP 12–24; TEMP 36.4; O2SAT 94–100; BMI 25.1
--- NOTE | 2022-03-09 11:49 | ED.EYEPROB ---
HPI - Eye Problem General Chief complaint: Eye Problems Stated complaint: hx of seizures, coughing, blood clots in eyes Time Seen by Provider: 03/09/22 11:43 Source: patient and family Mode of arrival: Ambulatory History of Present Illness HPI Narrative: 26-year-old male smoker with history of bipolar, kidney disease, seizure disorder presents with his mother and a chief complaint of coughing and vomiting worsening over the course of the week. Yesterday he and mother state that he started getting bloodshot eyes bilaterally he started developing decreased ability to see. He can still make out shapes and colors and identify objects but it is becoming fuzzy in blurred. He denies eye pain and though he admits to double vision he cannot tell if the images are [id number], with just 1 eye versus to or different at close versus far range. He has had no recent seizure, he denies any recent trauma or head injury. He uses glasses. He was recently transferred from our facility to [facility] on February 24 for significant renal failure and had just been discharged from [facility] on Saturday. He had been on heparin up until Saturday. Additionally he complains of a significant headache without obvious provocation, palliation or radiation. It is unclear when his headache started, he is overall a poor historian Related Data Home Medications Medication Instructions Recorded Confirmed escitalopram oxalate 10 mg tablet 10 mg PO DAILY 09/20/21 02/22/22 levetiracetam 500 mg 2,000 mg PO QPM 09/20/21 02/22/22 tablet,extended release 24 hr levetiracetam 500 mg 1,500 mg PO DAILY 02/22/22 02/23/22 tablet,extended release 24 hr Allergies Allergy/AdvReac Type Severity Reaction Status Date / Time No Known Drug Allergies Allergy Verified 09/19/21 13:38 Review of Systems Review of Systems Narrative: GENERAL: Denies chills, fatigue, malaise, fever, sweats. HEENT: See HPI RESPIRATORY: Denies dyspnea, cough, wheezing, hemoptysis, sputum. CARDIOVASCULAR: Denies chest pain, palpitations, orthopnea, edema, GASTROINTESTINAL: Denies nausea, vomiting, abdominal pain, diarrhea, constipation, melena. : Denies dysuria, frequency, incontinence, hematuria, urinary retention. MUSCULOSKELETAL: denies weakness, joint pain, or bony pain SKIN: Denies rash, skin lesions, or other NEUROLOGIC: See HPI PSYCHIATRIC: No concerning psychosocial issues. 12 point review of systems is negative except for those stated above Patient History Medical History Bipolar 1 disorder Renal insufficiency Seizure disorder Surgical History Hx of adenoidectomy Hx of tonsillectomy Family History Mother Diabetes mellitus Father Alive and well Social History household members: family Smoking Status: Current every day smoker alcohol intake: current Smoking Status: Current every day smoker alcohol intake frequency: holidays/special occasions only Substance Use Type: marijuana Exam Narrative Exam Narrative: GENERAL: [26] year old patient appears stated age. Well-developed patient, in mild distress. Poor historian, slightly confused, GCS 14 HEAD: Atraumatic. Normocephalic. EYES: Pupils equal round and reactive. Extraocular motions intact. No scleral icterus. Bilateral subconjunctival hemorrhage, no hyphema, no abnormal findings on funduscopic exam ENT: Nose without bleeding, purulent drainage. Throat without erythema, tonsillar hypertrophy or exudate. Airway patent. NECK: Trachea midline. Non tender CARDIOVASCULAR: Regular rate and rhythm without murmurs, gallops, or rubs. RESPIRATORY: Clear to auscultation. Breath sounds equal bilaterally. No wheezes, rales, or rhonchi. GASTROINTESTINAL: Abdomen soft, non-tender, nondistended. EXTREMITIES: No edema or joint tenderness. BACK: Nontender without deformity or crepitance. No flank tenderness. NEURO: AOx3. Cranial nerves 2-12 grossly intact SKIN: No rash or erythema of visible areas Initial Vital Signs Initial Vital Signs: Vital Signs Temperature 97.5 F L 03/09/22 11:30 Pulse Rate 79 03/09/22 11:30 Respiratory Rate 18 03/09/22 11:30 Blood Pressure 143/87 H 03/09/22 11:30 Pulse Oximetry 99 03/09/22 11:30 Course Orders Ordered: ED Orders 03/09/22 11:50 CT head/brain wo con Stat 03/09/22 11:54 Complete Blood Count AUTO DIFF Stat Comprehensive Metabolic Panel Stat Lactate (Lactic Acid) Stat Magnesium Stat NT-proBNP (BNP-Adult 18+) Stat Partial Thromboplastin Time Stat Prothrombin Time INR Stat Troponin & CK Cardiac Panel Stat 03/09/22 13:16 COVID19 -Nasal RAPID/Pre-Proc Stat 03/09/22 15:00 Urine Microscopic Stat Discontinued Medications Fosphenytoin Sodium 1,250 mg/ (Sodium Chloride) 125 mls @ 250 mls/hr IV NOW ONE Stop: 03/09/22 14:18 Last Infusion: 03/09/22 15:15 Dose: 0 mls/hr Documented by: Admin: 03/09/22 14:41 Dose: 250 mls/hr Documented by: CONCHA Proparacaine HCl (Proparacaine 0.5% Ophth [place]) 1 drops EYE-BOTH NOW ONE Stop: 03/09/22 11:50 Last Admin: 03/09/22 12:02 Dose: 2 drop Documented by: NITZA Reevaluation(s) Reevaluation #1: called to see patient, generalized tonic clonic seizure noted, seizure pads placed, suction/oxygen started, Ativan 2mg IV ordered Time: 12:55 Consultations Consultation #1: given complexity of case, recent hospitalizations for rhabdo/PAU and recent decrease in Keppra dosing I contacted neuro at [facility] who agrees with need for transfer. She recommends loading with 18mg/PE/kg Fosphenytoin and admission to hospitalist Consultation #2: [facility] hospitalist happy to accept Vital Signs Vital signs: Vital Signs - 8 hr 03/09/22 11:30 03/09/22 12:54 03/09/22 12:56 Temperature 97.5 F L Pulse Rate 79 93 H Respiratory Rate 18 Blood Pressure 143/87 H 141/110 H Pulse Oximetry 99 96 97 03/09/22 12:58 03/09/22 12:59 03/09/22 13:00 Temperature Pulse Rate 150 H 149 H 146 H Respiratory Rate Blood Pressure 178/84 H 180/83 H Pulse Oximetry 98 96 98 03/09/22 13:10 03/09/22 13:20 03/09/22 13:30 Temperature Pulse Rate 130 H 121 H 108 H Respiratory Rate 23 23 21 Blood Pressure 144/76 H Pulse Oximetry 100 100 100 03/09/22 13:40 03/09/22 13:50 03/09/22 14:00 Temperature Pulse Rate 96 H 89 85 Respiratory Rate 20 19 22 Blood Pressure 145/84 H Pulse Oximetry 100 99 99 03/09/22 14:10 03/09/22 14:20 03/09/22 14:30 Temperature Pulse Rate 82 81 76 Respiratory Rate 22 23 24 Blood Pressure 160/85 H Pulse Oximetry 99 97 96 03/09/22 14:40 03/09/22 14:50 03/09/22 15:00 Temperature Pulse Rate 71 112 H 94 H Respiratory Rate 22 19 12 Blood Pressure 155/83 H Pulse Oximetry 96 03/09/22 15:10 03/09/22 15:20 03/09/22 15:30 Temperature Pulse Rate 95 H 96 H 91 H Respiratory Rate 13 14 12 Blood Pressure 143/76 H Pulse Oximetry 94 95 95 MDM - Eye Problem Lab Data Result diagrams: 03/09/22 11:54 03/09/22 11:54 Labs: Lab Results 03/09/22 03/09/22 03/09/22 Range/Units 11:54 11:54 11:54 WBC 17.1 H (4.5-11.0) X10^3/uL RBC 3.86 L (4.5-5.9) X10^6/uL Hgb 11.3 L (13.5-17.5) g/dL Hct 33.1 L (41-53) % MCV 85.8 (80-100) fL MCH 29.2 (26-34) PG MCHC 34.1 (30-36) % RDW 13.1 (11.6-14.8) % Plt Count 344 (150-400) X10^3/uL Neut % (Auto) 82.0 H (50-75) % Lymph % (Auto) 8.6 L (25-40) % [place] % (Auto) 8.4 (3-14) % Eos % (Auto) 0.5 L (2-4) % Baso % (Auto) 0.5 (0-2) % Neut # (Auto) 46404 H (5795-5422) /uL Lymph # (Auto) 1500 (0451-7325) /uL [place] # (Auto) 1400 H (0-900) /uL Eos # (Auto) 100 (0-450) /uL Baso # (Auto) 100 (0-100) /uL PT 12.4 (10.1-12.7) SECONDS INR 1.1 (0.9-1.3) APTT 26 L (26.4-36.2) SECONDS Sodium 136 L (137-145) mmol/L Potassium 3.5 (3.4-5.1) mmol/L Chloride 101 (98-107) mmol/L Carbon Dioxide 24 (22-32) mmol/L BUN 14 (9-20) mg/dL Creatinine 2.39 H (0.66-1.25) mg/dL Estimated GFR 38 L (>60) mL/min BUN/Creatinine Ratio 5.9 L (6-22) Glucose 108 H (70-100) mg/dL Lactate (0.7-2.1) mmol/L Calcium 8.3 L (8.4-10.2) mg/dL Magnesium 1.2 L (1.6-2.3) mg/dL Total Bilirubin 0.7 (0.2-1.3) mg/dL AST 49 (17-59) IU/L ALT 61 H (<50) IU/L Alkaline Phosphatase 70 (38-126) U/L Total Creatine Kinase (55-170) U/L CK-MB (CK-2) (<2.37) ng/mL CK-MB (CK-2) Rel Index (1.5-5.0) % Troponin I (0.01-0.034) ng/mL NT-Pro-B Natriuret Pep (<125) pg/mL Total Protein 6.9 (6.3-8.2) g/dL Albumin 3.8 (3.5-5.0) g/dL Globulin 3.1 (1.7-4.1) g/dL Albumin/Globulin Ratio 1.2 (1.0-2.8) Urine RBC (0-5/HPF) Urine WBC (0-5/HPF) Ur Squamous Epith Cells (0-5/HPF) Urine Bacteria (None) Urine Sperm Ur Culture Indicated? SARS-CoV-2 (PCR) (Negative) 03/09/22 03/09/22 03/09/22 Range/Units 11:54 11:54 13:16 WBC (4.5-11.0) X10^3/uL RBC (4.5-5.9) X10^6/uL Hgb (13.5-17.5) g/dL Hct (41-53) % MCV (80-100) fL MCH (26-34) PG MCHC (30-36) % RDW (11.6-14.8) % Plt Count (150-400) X10^3/uL Neut % (Auto) (50-75) % Lymph % (Auto) (25-40) % [place] % (Auto) (3-14) % Eos % (Auto) (2-4) % Baso % (Auto) (0-2) % Neut # (Auto) (9460-7164) /uL Lymph # (Auto) (3619-6972) /uL [place] # (Auto) (0-900) /uL Eos # (Auto) (0-450) /uL Baso # (Auto) (0-100) /uL PT (10.1-12.7) SECONDS INR (0.9-1.3) APTT (26.4-36.2) SECONDS Sodium (137-145) mmol/L Potassium (3.4-5.1) mmol/L Chloride (98-107) mmol/L Carbon Dioxide (22-32) mmol/L BUN (9-20) mg/dL Creatinine (0.66-1.25) mg/dL Estimated GFR (>60) mL/min BUN/Creatinine Ratio (6-22) Glucose (70-100) mg/dL Lactate 1.2 (0.7-2.1) mmol/L Calcium (8.4-10.2) mg/dL Magnesium (1.6-2.3) mg/dL Total Bilirubin (0.2-1.3) mg/dL AST (17-59) IU/L ALT (<50) IU/L Alkaline Phosphatase (38-126) U/L Total Creatine Kinase 361 H (55-170) U/L CK-MB (CK-2) 3.28 H (<2.37) ng/mL CK-MB (CK-2) Rel Index 0.9 L (1.5-5.0) % Troponin I 0.014 (0.01-0.034) ng/mL NT-Pro-B Natriuret Pep 3690 H (<125) pg/mL Total Protein (6.3-8.2) g/dL Albumin (3.5-5.0) g/dL Globulin (1.7-4.1) g/dL Albumin/Globulin Ratio (1.0-2.8) Urine RBC (0-5/HPF) Urine WBC (0-5/HPF) Ur Squamous Epith Cells (0-5/HPF) Urine Bacteria (None) Urine Sperm Ur Culture Indicated? SARS-CoV-2 (PCR) Negative (Negative) 03/09/22 Range/Units 15:00 WBC (4.5-11.0) X10^3/uL RBC (4.5-5.9) X10^6/uL Hgb (13.5-17.5) g/dL Hct (41-53) % MCV (80-100) fL MCH (26-34) PG MCHC (30-36) % RDW (11.6-14.8) % Plt Count (150-400) X10^3/uL Neut % (Auto) (50-75) % Lymph % (Auto) (25-40) % [place] % (Auto) (3-14) % Eos % (Auto) (2-4) % Baso % (Auto) (0-2) % Neut # (Auto) (5323-2464) /uL Lymph # (Auto) (4639-2904) /uL [place] # (Auto) (0-900) /uL Eos # (Auto) (0-450) /uL Baso # (Auto) (0-100) /uL PT (10.1-12.7) SECONDS INR (0.9-1.3) APTT (26.4-36.2) SECONDS Sodium (137-145) mmol/L Potassium (3.4-5.1) mmol/L Chloride (98-107) mmol/L Carbon Dioxide (22-32) mmol/L BUN (9-20) mg/dL Creatinine (0.66-1.25) mg/dL Estimated GFR (>60) mL/min BUN/Creatinine Ratio (6-22) Glucose (70-100) mg/dL Lactate (0.7-2.1) mmol/L Calcium (8.4-10.2) mg/dL Magnesium (1.6-2.3) mg/dL Total Bilirubin (0.2-1.3) mg/dL AST (17-59) IU/L ALT (<50) IU/L Alkaline Phosphatase (38-126) U/L Total Creatine Kinase (55-170) U/L CK-MB (CK-2) (<2.37) ng/mL CK-MB (CK-2) Rel Index (1.5-5.0) % Troponin I (0.01-0.034) ng/mL NT-Pro-B Natriuret Pep (<125) pg/mL Total Protein (6.3-8.2) g/dL Albumin (3.5-5.0) g/dL Globulin (1.7-4.1) g/dL Albumin/Globulin Ratio (1.0-2.8) Urine RBC 1-5/hpf (0-5/HPF) Urine WBC 1-5/hpf (0-5/HPF) Ur Squamous Epith Cells 0-1 /hpf (0-5/HPF) Urine Bacteria None seen (None) Urine Sperm Present Ur Culture Indicated? Cult not indicated SARS-CoV-2 (PCR) (Negative) Urine Dip Bedside Urine Glucose Negative Bedside Urine Bilirubin - Negative Bedside Urine Ketone - Negative Urine Specific [place] 1.01 Bedside Urine Occult Blood +/- Bedside Urine pH 7.0 Bedside Urine Protein + 30 Bedside Urine Urobilinogen - Negative Bedside Urine Nitrite - Negative Bedside Urine Leukocytes - Negative Esterase Imaging Data CT scan - head: Radiologist's Impression: Launch?[address] [address] [address] Scan Report Signed Patient: Leeroy Wilson II MR#: [id number] : 1995 Acct:[id number] Age/Sex: 26 / M Date of Service: 03/09/22 Loc: ED Accession Number: [id number] ?? Procedure: CT head/brain wo con Ordering Provider: Kali Pang D.O. PROCEDURE:? CT HEAD/BRAIN WO CON ? INDICATIONS:? altered, vision change ? TECHNIQUE:? Noncontrast 4.5 mm thick angled axial sections acquired from the foramen magnum to the vertex, with coronal and sagittal reformats.? For radiation dose reduction, the following was used:? automated exposure control, adjustment of mA and/or kV according to patient size.? ? COMPARISON:? None. ? FINDINGS:? Image quality:? Excellent.? ? CSF spaces:? Basal cisterns are patent.? No extra-axial fluid collections.? Ventricles are normal in size and shape.? ? Brain:? No midline shift.? No intracranial masses or hemorrhage.? Aggarwal-white matter interface is normal.? ? Skull and face:? Calvarium and visualized facial bones are intact, without suspicious lesions.? ? Sinuses:? Visualized sinuses and mastoids are clear.? ? IMPRESSION:? No acute intracranial finding.? ? ? Dictated by: Ramone Bañuelos M.D. on 03/09/2022 at 13:25 ? ? Approved by: Ramone Bañuelos M.D. on 03/09/2022 at 13:25 ? MDM Narrative Medical decision making narrative: Patient returns for evaluation of a constellation of symptoms. He has been having headaches and vision trouble as well as confusion and not operating at baseline for the past few days. His recent history is quite complex and he presented here on February 22 and was diagnosed with breakthrough seizures, or rhabdo and acute kidney injury, after a few days he was transferred given his worsening kidney injury to [facility]. Upon time of discharge his previously large dose of Keppra was decreased to 500 mg twice daily and patient's history and physical is consistent with the possibility of breakthrough partial seizures over the course of the week. Given the complexity of his presentation and recent hospitalizations it is most appropriate to not only admit the patient but transfer to [facility] where his neurology group is to devise a stable regimen of medications, and administer further diagnosis and treatment Critical Care Time Critical Care Time Critical Care Time: Yes Total Critical Care Time: 45 Attestation: The high probability of a clinically significant, sudden or life threatening deterioration of the [Neuro] system(s) required my full and direct attention, intervention and personal management. The aggregate critical care time was [45] minutes. This time is in addition to time spent performing reported procedures but includes the following: [x] Data Review and interpretation [x] Patient assessment and monitoring of vital signs [x] Documentation [x] Medication orders and management Discharge Plan Departure Patient Disposition: [facility] Clinical Impression: Seizure disorder, Acute kidney injury superimposed on chronic kidney disease Prescriptions: No Action escitalopram oxalate 10 mg tablet 10 mg PO DAILY 0RF levetiracetam 500 mg tablet extended release 24 hr 2,000 mg PO QPM 0RF levetiracetam 500 mg tablet extended release 24 hr 1,500 mg PO DAILY 0RF Label Comments: TAKE 3 TABLETS BY MOUTH IN THE MORNING AND 4 TABLETS IN THE EVENING Rx Instructions: Take in am Referrals: Fatmata Duong MD [Primary Care Provider] -
--- NOTE | 2022-03-09 11:50 | DI.CT.S_ITS ---
PROCEDURE: CT HEAD/BRAIN WO CON INDICATIONS: altered, vision change TECHNIQUE: Noncontrast 4.5 mm thick angled axial sections acquired from the foramen magnum to the vertex, with coronal and sagittal reformats. For radiation dose reduction, the following was used: automated exposure control, adjustment of mA and/or kV according to patient size. COMPARISON: None. FINDINGS: Image quality: Excellent. CSF spaces: Basal cisterns are patent. No extra-axial fluid collections. Ventricles are normal in size and shape. Brain: No midline shift. No intracranial masses or hemorrhage. Aggarwal-white matter interface is normal. Skull and face: Calvarium and visualized facial bones are intact, without suspicious lesions. Sinuses: Visualized sinuses and mastoids are clear. IMPRESSION: No acute intracranial finding. Dictated by: Ramone Bañuelos M.D. on 03/09/2022 at 13:25 Approved by: Ramone Bañuelos M.D. on 03/09/2022 at 13:25
[2022-03-09] MEDS: PROPARACAINE 0.5% OPHTH SOL 1 DROPS EYE-BOTH (12:02)
[2022-03-09 12:03] LABS: Add Manual Diff / Slide Review NO; Basophils Absolute Auto 100 /uL (0-100); Basophils Percent Auto 0.5 % (0-2); Eosinophils Absolute Auto 100 /uL (0-450); Eosinophils Percent Auto 0.5 % (2-4); Hematocrit 33.1 % (41-53); Hemoglobin 11.3 g/dL (13.5-17.5); Lymphocytes Absolute Auto 1500 /uL (1100-4500); Lymphocytes Percent Auto 8.6 % (25-40); Mean Corpuscular HGB Conc 34.1 % (30-36); Mean Corpuscular Hemoglobin 29.2 PG (26-34); Mean Corpuscular Volume 85.8 fL (80-100); Monocytes Absolute Auto 1400 /uL (0-900); Monocytes Percent Auto 8.4 % (3-14); Neutrophils Absolute Auto 14000 /uL (1500-7000); Platelet Count 344 X10^3/uL (150-400); Red Blood Cell Count 3.86 X10^6/uL (4.5-5.9); Red Cell Distribution Width 13.1 % (11.6-14.8); White Blood Cell Count 17.1 X10^3/uL (4.5-11.0)
[2022-03-09 12:07] LABS: INR 1.1 (0.9-1.3); Prothrombin Time 12.4 SECONDS (10.1-12.7)
[2022-03-09 12:10] LABS: PTT Partial Thromboplastin Tim 26 SECONDS (26.4-36.2)
[2022-03-09 12:13] LABS: Creatine Kinase 361 U/L (55-170); Lactate (Lactic Acid) 1.2 mmol/L (0.7-2.1)
[2022-03-09 12:15] LABS: Alanine Aminotransferase 61 IU/L (<50); Albumin 3.8 g/dL (3.5-5.0); Albumin Globulin Ratio 1.2 (1.0-2.8); Alkaline Phosphatase 70 U/L (38-126); Aspartate Aminotransferase 49 IU/L (17-59); BUN Creatinine Ratio 5.9 (6-22); Bilirubin Total 0.7 mg/dL (0.2-1.3); Blood Urea Nitrogen 14 mg/dL (9-20); Calcium 8.3 mg/dL (8.4-10.2); Carbon Dioxide 24 mmol/L (22-32); Chloride 101 mmol/L (98-107); Estimated Glomerular Filt Rate 38 mL/min (>60); Globulin 3.1 g/dL (1.7-4.1); Glucose 108 mg/dL (70-100); HEMOLYSIS < 15 (0-50); Magnesium 1.2 mg/dL (1.6-2.3); Potassium 3.5 mmol/L (3.4-5.1); Sodium 136 mmol/L (137-145); Total Protein 6.9 g/dL (6.3-8.2)
[2022-03-09 12:26] LABS: NT-proBNP (BNP-Adult 18+) 3690 pg/mL (<125); Troponin I 0.014 ng/mL (0.01-0.034)
[2022-03-09] MEDS: LORazepam 2 MG/ML INJ (12:57)
--- NOTE | 2022-03-09 13:01 | PC.NURSE ---
1253: Pt started with tonic clonic seizure, lasting approx 5 min. Ativan 2mg given IVP. Loss of bladder. Pt turned on side. suction available. NRB placed at 15L. on cardiac monitoring. seizure pads in place. mother reports last seizure 02/22.
[2022-03-09 13:02] LABS: CKMB % Relative Index 0.9 % (1.5-5.0); Creatine Kinase MB 3.28 ng/mL (<2.37)
[2022-03-09 13:34] LABS: COVID19 -Nasal RAPID Negative (Negative)
[2022-03-09] MEDS: FOSPHENYTOIN IV (14:41)
[2022-03-09] MEDS: SODIUM CHLORIDE 0.9% IV (14:41)
[2022-03-09 15:24] LABS: Bacteria Urine None Seen; Culture Indicated Urine Cult Not Indicated; RBC Urine 1-5/HPF (0-5/HPF); Sperm Urine PRESENT; Squamous Epithelial Cell Urine 0-1 /HPF (0-5/HPF); WBC Urine 1-5/HPF (0-5/HPF)
== END 2022-03-09 16:59 | disposition short-term general hospital (02) ==
PROVIDERS: Emergency Provider Emergency Medicine; PCP Psychiatry & Neurology Neurology
DX: G40.909 Epilepsy, unspecified, not intractable, without status epilepticus (principal); N17.9 Acute kidney failure, unspecified; H53.8 Other visual disturbances; Z20.822 Contact with and (suspected) exposure to COVID-19
CPT/HCPCS: 36415; 70450; 80053; 81003; 81015; 82550; 82553; 83605; 83735; 83880; 84484; 85025; 85610; 85730; 87635; 96365; 96375; 99284; 99285; C9803; J2060; Q2009

== ENCOUNTER 2022-04-17 13:41 | Emergency (ER) | payer OTHER, MEDICAID, SELFPAY ==
[2022-02-22 21:23] VITALS: BMI 23.5
[2022-04-17] VITALS (46 sets, daily range): BP systolic 120–157; BP diastolic 67–109; PULSE 62–135; RESP 14–26; TEMP 35.2–36.6; O2SAT 88–100
--- NOTE | 2022-04-17 13:46 | DI.RAD.S_ITS ---
PROCEDURE: XR CHEST 1V INDICATIONS: Tube placement TECHNIQUE: One view of the chest was acquired. COMPARISON: [facility], , XR CHEST 1V, 02/24/2022, 14:32. FINDINGS: Endotracheal tube terminates in appropriate position within the thoracic trachea. Enteric tube terminates in appropriate position below the diaphragm and outside the field of view likely within the stomach. No evidence of pneumothorax or pleural effusion in the field of view. IMPRESSION: Appropriate position of endotracheal and enteric tubes. Dictated by: Ramone Bañuelos M.D. on 04/17/2022 at 14:50 Approved by: Ramone Bañuelos M.D. on 04/17/2022 at 14:51
--- NOTE | 2022-04-17 13:50 | DI.CT.S_ITS ---
PROCEDURE: CT HEAD/BRAIN WO CON INDICATIONS: Status epilepticus TECHNIQUE: Noncontrast 4.5 mm thick angled axial sections acquired from the foramen magnum to the vertex, with coronal and sagittal reformats. For radiation dose reduction, the following was used: automated exposure control, adjustment of mA and/or kV according to patient size. COMPARISON: None. FINDINGS: Image quality: Excellent. CSF spaces: Basal cisterns are patent. No extra-axial fluid collections. The ventricles are symmetric in size and shape. Brain: No intracranial bleeds or masses. There is cerebral volume loss for age, with resultant ventricular and sulcal prominence. There are periventricular and deep white matter chronic small vessel ischemic changes. There is intracranial internal carotid artery atherosclerosis. Skull and face: Calvarium and visualized facial bones appear intact, without suspicious lesions. Sinuses: Visualized sinuses and mastoids are clear. IMPRESSION: No acute intracranial finding. Dictated by: Ramone Bañuelos M.D. on 04/17/2022 at 14:53 Approved by: Ramone Bañuelos M.D. on 04/17/2022 at 14:54
--- NOTE | 2022-04-17 13:53 | ED.SEIZURE ---
HPI - Seizure General Chief Complaint: Seizure Stated Complaint: Seizures Time Seen by Provider: 04/17/22 13:46 History of Present Illness HPI Narrative: 26-year-old male smoker with history of bipolar, kidney disease, seizure disorder on levetiracetam) presents by EMS for evaluation of prolonged seizures without return to baseline. There is at least 20 minutes of seizure activity with a very brief interlude and then a recurrence of seizures, patient was given Valium 10 mg without any improvement and was subsequently intubated by EMS prior to arrival for airway protection. He was given etomidate and succinylcholine for rapid sequence intubation at about 13 30 and this was followed with morphine 10 mg and vecuronium for ongoing sedation. Related Data Home Medications Medication Instructions Recorded Confirmed escitalopram oxalate 10 mg tablet 10 mg PO DAILY 09/20/21 04/17/22 levetiracetam 500 mg 2,000 mg PO QPM 09/20/21 04/17/22 tablet,extended release 24 hr levetiracetam 500 mg 1,500 mg PO DAILY 02/22/22 04/17/22 tablet,extended release 24 hr Allergies Allergy/AdvReac Type Severity Reaction Status Date / Time No Known Drug Allergies Allergy Verified 09/19/21 13:38 Review of Systems Review of Systems ROS Unobtainable: Unobtainable due to medical condition Patient History Medical History Bipolar 1 disorder Renal insufficiency Seizure disorder Surgical History Hx of adenoidectomy Hx of tonsillectomy Family History Mother Diabetes mellitus Father Alive and well Social History household members: family Smoking Status: Current every day smoker alcohol intake: current Smoking Status: Current every day smoker alcohol intake frequency: holidays/special occasions only Substance Use Type: marijuana Exam Narrative Exam Narrative: GENERAL: [26] year old patient appears stated age. Intubated, stable vitals HEAD: Atraumatic. Normocephalic. EYES: Pupils equal round, no hyphema No injection or drainage. ENT: Nose without bleeding, purulent drainage. Throat without erythema, tonsillar hypertrophy or exudate. Airway patent. NECK: Trachea midline. Non tender CARDIOVASCULAR: Regular rate and rhythm without murmurs, gallops, or rubs. RESPIRATORY: Clear to auscultation. Breath sounds equal bilaterally. No wheezes, rales, or rhonchi. GASTROINTESTINAL: Abdomen soft, non-tender, nondistended. EXTREMITIES: No edema or joint tenderness. BACK: Nontender without deformity or crepitance. No flank tenderness. NEURO: Sedated and intubated SKIN: No rash or erythema of visible areas Initial Vital Signs Initial Vital Signs: Vital Signs Temperature 97.6 F 04/17/22 13:42 Pulse Rate 112 H 04/17/22 13:42 Respiratory Rate 14 04/17/22 13:42 Blood Pressure 120/71 04/17/22 13:42 Pulse Oximetry 96 04/17/22 13:42 Oxygen Delivery Method 04/17/22 13:42 Course Orders Ordered: Discontinued Medications Sodium Chloride (Normal Saline 0.9%) 1,000 mls @ 125 mls/hr IV CONT MIKAELA Last Infusion: 04/17/22 18:37 Dose: 0 mls/hr Documented By: Admin: 04/17/22 14:00 Dose: 125 mls/hr Documented By: OSCAR Fentanyl 1,000 mcg/ Dextrose 250 mls @ 12.425 mls/hr IV TITRATE MIKAELA; Protocol Last Titration: 04/17/22 18:28 Dose: 3 mcg/kg/hr, 53.25 mls/hr Documented By: Titration: 04/17/22 15:50 Dose: 3 mcg/kg/hr, 53.25 mls/hr Documented By: Titration: 04/17/22 15:45 Dose: 2.5 mcg/kg/hr, 44.375 mls/hr Documented By: Titration: 04/17/22 15:30 Dose: 2 mcg/kg/hr, 35.5 mls/hr Documented By: Titration: 04/17/22 15:20 Dose: 1.5 mcg/kg/hr, 26.625 mls/hr Documented By: Titration: 04/17/22 15:14 Dose: 1 mcg/kg/hr, 17.75 mls/hr Documented By: Admin: 04/17/22 14:14 Dose: 0.7 mcg/kg/hr, 12.425 mls/hr Documented By: OSCAR Propofol (Propofol) 1,000 mg in 100 mls @ 2.13 mls/hr IV TITRATE MIKAELA; Protocol Last Titration: 04/17/22 18:23 Dose: 0 mcg/kg/min, 0 mls/hr Documented By: Titration: 04/17/22 16:56 Dose: 55 mcg/kg/min, 23.43 mls/hr Documented By: Titration: 04/17/22 16:05 Dose: 55 mcg/kg/min, 23.43 mls/hr Documented By: Titration: 04/17/22 15:40 Dose: 50 mcg/kg/min, 21.3 mls/hr Documented By: Titration: 04/17/22 15:35 Dose: 45 mcg/kg/min, 19.17 mls/hr Documented By: Titration: 04/17/22 15:30 Dose: 40 mcg/kg/min, 17.04 mls/hr Documented By: Titration: 04/17/22 15:25 Dose: 35 mcg/kg/min, 14.91 mls/hr Documented By: Titration: 04/17/22 15:20 Dose: 30 mcg/kg/min, 12.78 mls/hr Documented By: Titration: 04/17/22 15:15 Dose: 25 mcg/kg/min, 10.65 mls/hr Documented By: Titration: 04/17/22 15:10 Dose: 15 mcg/kg/min, 6.39 mls/hr Documented By: Admin: 04/17/22 14:00 Dose: 5 mcg/kg/min, 2.13 mls/hr Documented By: OSCAR Levetiracetam 2,000 mg/ Sodium (Chloride) 120 mls @ 480 mls/hr IV NOW ONE Stop: 04/17/22 16:02 Last Infusion: 04/17/22 16:54 Dose: 0 mls/hr Documented By: СЕРГЕЙ Admin: 04/17/22 16:35 Dose: 480 mls/hr Documented By: СЕРГЕЙ Fentanyl 1,000 mcg/ Dextrose 250 mls @ 12.425 mls/hr IV TITRATE MIKAELA; Protocol Last Titration: 04/17/22 18:38 Dose: 0 mcg/kg/hr, 0 mls/hr Documented By: Admin: 04/17/22 18:37 Dose: 3 mcg/kg/hr, 53.25 mls/hr Documented By: OSCAR Propofol (Propofol) 1,000 mg in 100 mls @ 2.13 mls/hr IV TITRATE MIKAELA; Protocol Last Titration: 04/17/22 18:40 Dose: 0 mcg/kg/min, 0 mls/hr Documented By: Admin: 04/17/22 18:37 Dose: 55 mcg/kg/min, 23.43 mls/hr Documented By: OSCAR Ondansetron HCl (Ondansetron 4 Mg/2 Ml Inj) 4 mg IV NOW ONE Stop: 04/17/22 13:47 Last Admin: 04/17/22 14:00 Dose: 4 mg Documented By: OSCAR Pantoprazole Sodium (Pantoprazole 40 Mg Vial) 40 mg IV NOW ONE Stop: 04/17/22 13:47 Last Admin: 04/17/22 14:00 Dose: 40 mg Documented By: OSCAR Vital Signs Vital signs: Vital Signs - 8 hr 04/17/22 13:42 04/17/22 13:59 04/17/22 14:00 Temperature 97.6 F Pulse Rate 112 H 135 H Respiratory Rate 14 14 Blood Pressure 120/71 137/79 Pulse Oximetry 96 96 Oxygen Delivery Method Mechanical Ventilation Mechanical Ventilation 04/17/22 14:00 04/17/22 14:18 04/17/22 14:18 Temperature 95.4 F L Pulse Rate 125 H 107 H Respiratory Rate 14 14 Blood Pressure 131/67 Pulse Oximetry 96 97 Oxygen Delivery Method Mechanical Ventilation Mechanical Ventilation 04/17/22 14:20 04/17/22 14:20 04/17/22 14:30 Temperature 95.5 F L Pulse Rate 103 H Respiratory Rate 14 Blood Pressure 125/71 125/86 Pulse Oximetry 97 Oxygen Delivery Method Mechanical Ventilation 04/17/22 14:30 04/17/22 14:35 04/17/22 14:35 Temperature 96.1 F L 96.1 F L Pulse Rate 109 H 109 H Respiratory Rate 14 Blood Pressure 137/79 Pulse Oximetry 90 L 98 Oxygen Delivery Method Mechanical Ventilation Mechanical Ventilation 04/17/22 14:45 04/17/22 14:45 04/17/22 15:00 Temperature 96.1 F L Pulse Rate 121 H Respiratory Rate 17 Blood Pressure 142/93 H 157/109 H Pulse Oximetry 97 Oxygen Delivery Method Mechanical Ventilation 04/17/22 15:00 04/17/22 15:05 04/17/22 15:05 Temperature 95.9 F L 96.1 F L Pulse Rate 113 H 99 H Respiratory Rate 22 21 Blood Pressure 146/100 H Pulse Oximetry 100 97 Oxygen Delivery Method Mechanical Ventilation Mechanical Ventilation 04/17/22 15:15 04/17/22 15:15 04/17/22 15:22 Temperature 96.1 F L 96.1 F L Pulse Rate 99 H 91 H Respiratory Rate 23 18 Blood Pressure 152/98 H Pulse Oximetry 96 95 Oxygen Delivery Method Mechanical Ventilation Mechanical Ventilation 04/17/22 15:22 04/17/22 15:27 04/17/22 15:27 Temperature 96.1 F L Pulse Rate 95 H Respiratory Rate 20 Blood Pressure 144/94 H 146/100 H Pulse Oximetry 88 L Oxygen Delivery Method Mechanical Ventilation 04/17/22 15:30 04/17/22 15:30 04/17/22 15:35 Temperature 96.1 F L Pulse Rate 102 H 81 Respiratory Rate 26 H 16 Blood Pressure 148/101 H Pulse Oximetry 98 96 Oxygen Delivery Method Mechanical Ventilation 04/17/22 15:40 04/17/22 15:40 04/17/22 15:45 Temperature Pulse Rate 76 Respiratory Rate 16 Blood Pressure 133/96 H 134/95 H Pulse Oximetry 97 Oxygen Delivery Method 04/17/22 15:45 04/17/22 15:50 04/17/22 15:50 Temperature Pulse Rate 75 74 Respiratory Rate 16 16 Blood Pressure 140/96 H Pulse Oximetry 99 100 Oxygen Delivery Method Mechanical Ventilation 04/17/22 15:55 04/17/22 15:55 04/17/22 16:00 Temperature Pulse Rate 75 Respiratory Rate 16 Blood Pressure 132/96 H 141/95 H Pulse Oximetry 100 Oxygen Delivery Method 04/17/22 16:00 04/17/22 16:05 04/17/22 16:05 Temperature 96.3 F L 96.4 F L Pulse Rate 73 73 Respiratory Rate 16 16 Blood Pressure 135/87 Pulse Oximetry 100 100 Oxygen Delivery Method Mechanical Ventilation Mechanical Ventilation 04/17/22 16:10 04/17/22 16:10 04/17/22 16:15 Temperature 96.4 F L Pulse Rate 68 Respiratory Rate 16 Blood Pressure 144/95 H 137/92 H Pulse Oximetry 100 Oxygen Delivery Method 04/17/22 16:15 04/17/22 16:20 04/17/22 16:20 Temperature 96.4 F L 96.6 F L Pulse Rate 72 72 Respiratory Rate 16 16 Blood Pressure 133/90 Pulse Oximetry 100 100 Oxygen Delivery Method 04/17/22 16:25 04/17/22 16:25 04/17/22 16:30 Temperature 96.6 F L 96.6 F L Pulse Rate 72 75 Respiratory Rate 16 16 Blood Pressure 136/89 Pulse Oximetry 100 100 Oxygen Delivery Method 04/17/22 16:35 04/17/22 16:40 04/17/22 16:45 Temperature 96.8 F L 96.8 F L 97.0 F L Pulse Rate 68 70 70 Respiratory Rate 16 16 16 Blood Pressure Pulse Oximetry 100 100 100 Oxygen Delivery Method 04/17/22 16:50 04/17/22 16:55 Temperature 97.0 F L 97.2 F L Pulse Rate 69 69 Respiratory Rate 16 16 Blood Pressure Pulse Oximetry 100 100 Oxygen Delivery Method Mechanical Ventilation MDM - Seizure Lab Data Result diagrams: 04/17/22 13:51 04/17/22 13:51 Labs: Lab Results 04/17/22 04/17/22 04/17/22 Range/Units 13:25 13:51 13:51 WBC 11.1 H (4.5-11.0) X10^3/uL RBC 4.07 L (4.5-5.9) X10^6/uL Hgb 12.2 L (13.5-17.5) g/dL Hct 35.5 L (41-53) % MCV 87.2 (80-100) fL MCH 30.0 (26-34) PG MCHC 34.4 (30-36) % RDW 13.8 (11.6-14.8) % Plt Count 296 (150-400) X10^3/uL Neut % (Auto) 62.4 (50-75) % Lymph % (Auto) 32.6 (25-40) % [place] % (Auto) 3.7 (3-14) % Eos % (Auto) 0.9 L (2-4) % Baso % (Auto) 0.4 (0-2) % Neut # (Auto) 6900 (5185-1652) /uL Lymph # (Auto) 3600 (6803-8985) /uL [place] # (Auto) 400 (0-900) /uL Eos # (Auto) 100 (0-450) /uL Baso # (Auto) 0 (0-100) /uL ABG pH 7.28 L* (7.35-7.45) ABG pCO2 43.0 (35-45) mmHg ABG pO2 545 H* (80-100) mmHg ABG HCO3 19 L (22-26) mmol/L ABG Total CO2 21 (21-31) mmol/L ABG O2 Saturation 100 (95-100) % ABG Base Excess -8.0 L (-2-2) mmol/L FiO2 100 Sodium 140 (137-145) mmol/L Potassium 4.3 (3.4-5.1) mmol/L Chloride 109 H (98-107) mmol/L Carbon Dioxide 11 L (22-32) mmol/L BUN 7 L (9-20) mg/dL Creatinine 1.01 (0.66-1.25) mg/dL Estimated GFR > 60 (>60) mL/min BUN/Creatinine Ratio 6.9 (6-22) Glucose 201 H (70-100) mg/dL Lactate (0.7-2.1) mmol/L Calcium 8.5 (8.4-10.2) mg/dL Magnesium (1.6-2.3) mg/dL Total Bilirubin 0.3 (0.2-1.3) mg/dL AST 32 (17-59) IU/L ALT 24 (<50) IU/L Alkaline Phosphatase 56 (38-126) U/L Total Creatine Kinase (55-170) U/L CK-MB (CK-2) CK-MB (CK-2) Rel Index Troponin I (0.01-0.034) ng/mL Total Protein 7.1 (6.3-8.2) g/dL Albumin 4.4 (3.5-5.0) g/dL Globulin 2.7 (1.7-4.1) g/dL Albumin/Globulin Ratio 1.6 (1.0-2.8) U Opiates 300ng/mL cut (Negative) Ur Oxycodone Screen (Negative) Urine Methadone Screen (Negative) Ur Barbiturates Screen (Negative) U Tricyclic Antidepress (Negative) Ur Phencyclidine Scrn (Negative) Ur Amphetamines Screen (Negative) U Methamphetamines Scrn (Negative) Ur MDMA Scrn (Ecstasy) (Negative) U Benzodiazepines Scrn (Negative) Urine Cocaine Screen (Negative) U Marijuana (THC) Screen (Negative) SARS-CoV-2 (PCR) (Negative) 04/17/22 04/17/22 04/17/22 Range/Units 13:51 13:51 14:10 WBC (4.5-11.0) X10^3/uL RBC (4.5-5.9) X10^6/uL Hgb (13.5-17.5) g/dL Hct (41-53) % MCV (80-100) fL MCH (26-34) PG MCHC (30-36) % RDW (11.6-14.8) % Plt Count (150-400) X10^3/uL Neut % (Auto) (50-75) % Lymph % (Auto) (25-40) % [place] % (Auto) (3-14) % Eos % (Auto) (2-4) % Baso % (Auto) (0-2) % Neut # (Auto) (7791-5645) /uL Lymph # (Auto) (7327-7558) /uL [place] # (Auto) (0-900) /uL Eos # (Auto) (0-450) /uL Baso # (Auto) (0-100) /uL ABG pH (7.35-7.45) ABG pCO2 (35-45) mmHg ABG pO2 (80-100) mmHg ABG HCO3 (22-26) mmol/L ABG Total CO2 (21-31) mmol/L ABG O2 Saturation (95-100) % ABG Base Excess (-2-2) mmol/L FiO2 Sodium (137-145) mmol/L Potassium (3.4-5.1) mmol/L Chloride (98-107) mmol/L Carbon Dioxide (22-32) mmol/L BUN (9-20) mg/dL Creatinine (0.66-1.25) mg/dL Estimated GFR (>60) mL/min BUN/Creatinine Ratio (6-22) Glucose (70-100) mg/dL Lactate 11.9 H* (0.7-2.1) mmol/L Calcium (8.4-10.2) mg/dL Magnesium 2.2 (1.6-2.3) mg/dL Total Bilirubin (0.2-1.3) mg/dL AST (17-59) IU/L ALT (<50) IU/L Alkaline Phosphatase (38-126) U/L Total Creatine Kinase 99 (55-170) U/L CK-MB (CK-2) TNP CK-MB (CK-2) Rel Index TNP Troponin I < 0.012 (0.01-0.034) ng/mL Total Protein (6.3-8.2) g/dL Albumin (3.5-5.0) g/dL Globulin (1.7-4.1) g/dL Albumin/Globulin Ratio (1.0-2.8) U Opiates 300ng/mL cut (Negative) Ur Oxycodone Screen (Negative) Urine Methadone Screen (Negative) Ur Barbiturates Screen (Negative) U Tricyclic Antidepress (Negative) Ur Phencyclidine Scrn (Negative) Ur Amphetamines Screen (Negative) U Methamphetamines Scrn (Negative) Ur MDMA Scrn (Ecstasy) (Negative) U Benzodiazepines Scrn (Negative) Urine Cocaine Screen (Negative) U Marijuana (THC) Screen (Negative) SARS-CoV-2 (PCR) Negative (Negative) 04/17/22 04/17/22 Range/Units 14:10 16:35 WBC (4.5-11.0) X10^3/uL RBC (4.5-5.9) X10^6/uL Hgb (13.5-17.5) g/dL Hct (41-53) % MCV (80-100) fL MCH (26-34) PG MCHC (30-36) % RDW (11.6-14.8) % Plt Count (150-400) X10^3/uL Neut % (Auto) (50-75) % Lymph % (Auto) (25-40) % [place] % (Auto) (3-14) % Eos % (Auto) (2-4) % Baso % (Auto) (0-2) % Neut # (Auto) (6911-3933) /uL Lymph # (Auto) (1682-5821) /uL [place] # (Auto) (0-900) /uL Eos # (Auto) (0-450) /uL Baso # (Auto) (0-100) /uL ABG pH (7.35-7.45) ABG pCO2 (35-45) mmHg ABG pO2 (80-100) mmHg ABG HCO3 (22-26) mmol/L ABG Total CO2 (21-31) mmol/L ABG O2 Saturation (95-100) % ABG Base Excess (-2-2) mmol/L FiO2 Sodium (137-145) mmol/L Potassium (3.4-5.1) mmol/L Chloride (98-107) mmol/L Carbon Dioxide (22-32) mmol/L BUN (9-20) mg/dL Creatinine (0.66-1.25) mg/dL Estimated GFR (>60) mL/min BUN/Creatinine Ratio (6-22) Glucose (70-100) mg/dL Lactate 1.6 (0.7-2.1) mmol/L Calcium (8.4-10.2) mg/dL Magnesium (1.6-2.3) mg/dL Total Bilirubin (0.2-1.3) mg/dL AST (17-59) IU/L ALT (<50) IU/L Alkaline Phosphatase (38-126) U/L Total Creatine Kinase (55-170) U/L CK-MB (CK-2) CK-MB (CK-2) Rel Index Troponin I (0.01-0.034) ng/mL Total Protein (6.3-8.2) g/dL Albumin (3.5-5.0) g/dL Globulin (1.7-4.1) g/dL Albumin/Globulin Ratio (1.0-2.8) U Opiates 300ng/mL cut Positive H (Negative) Ur Oxycodone Screen Negative (Negative) Urine Methadone Screen Negative (Negative) Ur Barbiturates Screen Negative (Negative) U Tricyclic Antidepress Negative (Negative) Ur Phencyclidine Scrn Negative (Negative) Ur Amphetamines Screen Negative (Negative) U Methamphetamines Scrn Negative (Negative) Ur MDMA Scrn (Ecstasy) Negative (Negative) U Benzodiazepines Scrn Negative (Negative) Urine Cocaine Screen Negative (Negative) U Marijuana (THC) Screen Positive H (Negative) SARS-CoV-2 (PCR) (Negative) Imaging Data CT scan - head: Radiologist's Impression: [address] [address] [address] Scan Report Signed Patient: Leeroy Wilson II MR#: [id number] : 1995 Acct:[id number] Age/Sex: 26 / M Date of Service: 04/17/22 Loc: ED Accession Number: [id number] ?? Procedure: CT head/brain wo con Ordering Provider: Kali Pang D.O. PROCEDURE:? CT HEAD/BRAIN WO CON ? INDICATIONS:? Status epilepticus ? TECHNIQUE:? Noncontrast 4.5 mm thick angled axial sections acquired from the foramen magnum to the vertex, with coronal and sagittal reformats.? For radiation dose reduction, the following was used:? automated exposure control, adjustment of mA and/or kV according to patient size.? ? COMPARISON:? None. ? FINDINGS:? Image quality:? Excellent.? ? CSF spaces:? Basal cisterns are patent.? No extra-axial fluid collections.? The ventricles are symmetric in size and shape.? ? Brain:? No intracranial bleeds or masses.? There is cerebral volume loss for age, with resultant ventricular and sulcal prominence.? There are periventricular and deep white matter chronic small vessel ischemic changes.? There is intracranial internal carotid artery atherosclerosis.? ? Skull and face:? Calvarium and visualized facial bones appear intact, without suspicious lesions.? ? Sinuses:? Visualized sinuses and mastoids are clear.? ? IMPRESSION:? No acute intracranial finding. ? ? Dictated by: Ramone Bañuelos M.D. on 04/17/2022 at 14:53 ? ? Approved by: Ramone Bañuelos M.D. on 04/17/2022 at 14:54? Chest x-ray: Radiologist's Impression: Close Head CT (Signed) Ramone Bañuelos - 04/17/22 Chest X-Ray (Signed) Ramone Bañuelos - 04/17/[address] (Signed) Ramone Bañuelos - 03/09/22 Chest X-Ray (Signed) Leeroy Woodall - 02/24/22 Abdomen Ultrasound (Signed) William Lucio - 02/23/22 Telemetry Strips 02/22/22 Chest X-Ray (Signed) Rigoberto Miranda - 02/22/[address] (Signed) RichShaji - 02/22/22 Finger X-Ray (Signed) NaveedWilliam - 09/27/21 Telemetry Strips 09/20/21 Abdomen/Pelvis CT (Signed) Cristina Villanuevae - 09/19/[address] (Signed) Chandan Argueta - 09/19/21 Chest X-Ray (Signed) Chandan Argueta - 09/19/21 Abdomen/Pelvis CT (Signed) AmandoDorie - 06/30/[address] (Signed) Dorie Goel - 06/30/21 Launch?Image [address] [address] XRay Report Signed Patient: Leeroy Wilson II MR#: [id number] : 1995 Acct:[id number] Age/Sex: 26 / M Date of Service: 04/17/22 Loc: ED Accession Number: [id number] ?? Procedure: XR chest 1V Ordering Provider: Kali Pang D.O. PROCEDURE:? XR CHEST 1V ? INDICATIONS:? Tube placement ? TECHNIQUE:? One view of the chest was acquired.? ? COMPARISON:? [facility], , XR CHEST 1V, 02/24/2022, 14:32. ? FINDINGS:? ? Endotracheal tube terminates in appropriate position within the thoracic trachea.? Enteric tube terminates in appropriate position below the diaphragm and outside the field of view likely within the stomach.? No evidence of pneumothorax or pleural effusion in the field of view. ? IMPRESSION:? Appropriate position of endotracheal and enteric tubes.? ? ? Dictated by: Ramone Bañuelos M.D. on 04/17/2022 at 14:50 ? ? Approved by: Ramone Bañuelos M.D. on 04/17/2022 at 14:51 ? MDM Narrative Medical decision making narrative: 1500 -discussed with hospitalist at our facility, unable to keep patient here, will need higher level of care given primary source of decompensation is neurological and lack of access to Neurology our facility 1600 - call to [facility], discussed with Neuro ICU ([facility]) accepts based on bed availability, they are working on beds. Recommends Keppra 2000mg 1703 - bed available at [facility] Neuro ICU. Transport contacted. Critical Care Time Critical Care Time Critical Care Time: Yes Total Critical Care Time: 30 Attestation: The high probability of a clinically significant, sudden or life threatening deterioration of the [Neuro] system(s) required my full and direct attention, intervention and personal management. The aggregate critical care time was [30] minutes. This time is in addition to time spent performing reported procedures but includes the following: [x] Data Review and interpretation [x] Patient assessment and monitoring of vital signs [x] Documentation []x Medication orders and management Discharge Plan Departure Patient Disposition: [facility] Clinical Impression: Convulsive status epilepticus, Respiratory failure Prescriptions: No Action escitalopram oxalate 10 mg tablet 10 mg PO DAILY levetiracetam 500 mg tablet extended release 24 hr 2,000 mg PO QPM levetiracetam 500 mg tablet extended release 24 hr 1,500 mg PO DAILY Label Comments: TAKE 3 TABLETS BY MOUTH IN THE MORNING AND 4 TABLETS IN THE EVENING Rx Instructions: Take in am Referrals: Fatmata Duong MD [Primary Care Provider] -
[2022-04-17] MEDS: SODIUM CHLORIDE 0.9% 1,000 ML 125 ML IV (14:00)
[2022-04-17] MEDS: ONDANSETRON 4 MG/2 ML INJ IV (14:00)
[2022-04-17] MEDS: PANTOPRAZOLE 40 MG VIAL IV (14:00)
[2022-04-17] MEDS: propofoL 1,000 MG/100 ML VIAL 2.13 MG IV (14:00)
[2022-04-17 14:02] LABS: Add Manual Diff / Slide Review NO; Basophils Absolute Auto 0 /uL (0-100); Basophils Percent Auto 0.4 % (0-2); Eosinophils Absolute Auto 100 /uL (0-450); Eosinophils Percent Auto 0.9 % (2-4); Hematocrit 35.5 % (41-53); Hemoglobin 12.2 g/dL (13.5-17.5); Lymphocytes Absolute Auto 3600 /uL (1100-4500); Lymphocytes Percent Auto 32.6 % (25-40); Mean Corpuscular HGB Conc 34.4 % (30-36); Mean Corpuscular Volume 87.2 fL (80-100); Monocytes Absolute Auto 400 /uL (0-900); Monocytes Percent Auto 3.7 % (3-14); Neutrophils Absolute Auto 6900 /uL (1500-7000); Neutrophils Percent Auto 62.4 % (50-75); Platelet Count 296 X10^3/uL (150-400); Red Blood Cell Count 4.07 X10^6/uL (4.5-5.9); Red Cell Distribution Width 13.8 % (11.6-14.8); White Blood Cell Count 11.1 X10^3/uL (4.5-11.0)
[2022-04-17 14:14] LABS: Alanine Aminotransferase 24 IU/L (<50); Albumin 4.4 g/dL (3.5-5.0); Albumin Globulin Ratio 1.6 (1.0-2.8); Alkaline Phosphatase 56 U/L (38-126); Aspartate Aminotransferase 32 IU/L (17-59); BUN Creatinine Ratio 6.9 (6-22); Bilirubin Total 0.3 mg/dL (0.2-1.3); Blood Urea Nitrogen 7 mg/dL (9-20); Calcium 8.5 mg/dL (8.4-10.2); Carbon Dioxide 11 mmol/L (22-32); Chloride 109 mmol/L (98-107); Estimated Glomerular Filt Rate > 60 mL/min (>60); Globulin 2.7 g/dL (1.7-4.1); Glucose 201 mg/dL (70-100); HEMOLYSIS 16 (0-50); Potassium 4.3 mmol/L (3.4-5.1); Sodium 140 mmol/L (137-145); Total Protein 7.1 g/dL (6.3-8.2)
[2022-04-17] MEDS: fentaNYL 1,000 MCG in DEXTROSE 5% IN WATER 230 ML 12.425 MCG IV (14:14)
[2022-04-17 14:15] LABS: Creatine Kinase 99 U/L (55-170); Magnesium 2.2 mg/dL (1.6-2.3)
[2022-04-17 14:18] LABS: Lactate (Lactic Acid) 11.9 mmol/L (0.7-2.1)
[2022-04-17 14:26] LABS: Troponin I < 0.012 ng/mL (0.01-0.034)
[2022-04-17 14:33] LABS: COVID19 -Nasal RAPID Negative (Negative)
[2022-04-17 14:36] LABS: UR Morphine/Opiate cutoff 300 Positive (Negative); Ur Creatinine Normal (Normal); Ur Specific Gravity Normal (Normal); Urine Amphetamines Negative (Negative); Urine Barbiturates Negative (Negative); Urine Benzodiazepines Negative (Negative); Urine Cocaine Negative (Negative); Urine MDMA Negative (Negative); Urine Methadone Negative (Negative); Urine Methamphetamines Negative (Negative); Urine Oxycodone Negative (Negative); Urine Phencyclidine Negative (Negative); Urine Tetrahydrocannabinol Positive (Negative); Urine Tricyclic Antidepressant Negative (Negative); Urine pH Normal (Normal)
[2022-04-17 15:06] LABS: PO2 ABG 545 mmHg (80-100)
[2022-04-17 15:07] LABS: HCO3 ABG 19 mmol/L (22-26); Oxygen Saturation ABG 100 % (95-100); TCO2 ABG 21 mmol/L (21-31)
[2022-04-17 15:56] LABS: Reflexed Lactate in 2 Hours Y
[2022-04-17] MEDS: levETIRAcetam 2,000 MG in SODIUM CHLORIDE 0.9% 100 ML 480 MG IV (16:35)
[2022-04-17 17:15] LABS: Lactate 2HR (Lactic Acid Rflx) 1.6 mmol/L (0.7-2.1)
[2022-04-17] MEDS: propofoL 1,000 MG/100 ML VIAL 23.43 MG IV (18:37)
[2022-04-17] MEDS: fentaNYL 1,000 MCG in DEXTROSE 5% IN WATER 230 ML 53.25 MCG IV (18:37)
[2022-04-20 11:59] LABS: PCO2 ABG 43.3 mmHg (35-45); pH ABG 7.26 (7.35-7.45)
[2022-04-20 12:00] LABS: Fractionated Inspired Oxygen 40
== END 2022-04-17 18:30 | disposition short-term general hospital (02) ==
PROVIDERS: Emergency Provider Emergency Medicine; PCP Psychiatry & Neurology Neurology
DX: G40.901 Epilepsy, unspecified, not intractable, with status epilepticus (principal); J96.90 Respiratory failure, unspecified, unspecified whether with hypoxia or hypercapnia; Z20.822 Contact with and (suspected) exposure to COVID-19
CPT/HCPCS: 36415; 36600; 70450; 71045; 80053; 80177; 80305; 82550; 82805; 83605; 83735; 84484; 85025; 87635; 94799; 96365; 96366; 96368; 96375; 99152; 99153; 99285; 99291; 99292; C9803; C9113; J1953; J2405; J2704; J3010

== ENCOUNTER 2022-06-02 13:45 | Emergency (ER) | payer OTHER, MEDICAID, SELFPAY ==
[2022-02-22 21:23] VITALS: BMI 23.5
[2022-04-17 13:54] VITALS: RESP 14; O2SAT 100
[2022-06-02] VITALS (21 sets, daily range): BP systolic 112–144; BP diastolic 53–84; PULSE 85–163; RESP 17–44; O2SAT 92–100; BMI 25.0
--- NOTE | 2022-06-02 13:43 | DI.RAD.S_ITS ---
PROCEDURE: XR CHEST 1V INDICATIONS: seizure TECHNIQUE: One view of the chest was acquired. COMPARISON: [facility], CR, XR CHEST 1V, 02/24/2022, 14:32. [facility], CT, CT HEAD/BRAIN WO CON, 06/02/2022, 15:17. [facility], CR, XR CHEST 1V, 04/17/2022, 13:50. FINDINGS: Surgical changes and devices: None. Lungs and pleura: On this semiupright portable chest examination, no large pneumothorax or large pleural effusions are seen. No focal infiltrates are seen. Low lung volumes are noted. This causes a crowded appearance to the lung markings and limits evaluation. Mediastinum: Mediastinal contours appear normal. Heart size is normal. Bones and chest wall: No suspicious bony lesions. Overlying soft tissues appear unremarkable. IMPRESSION: Limited portable chest examination, without a significant cardiopulmonary abnormality identified. Dictated by: Shaji Villanueva M.D. on 06/02/2022 at 15:02 Approved by: Shaji Villanueva M.D. on 06/02/2022 at 15:02
--- NOTE | 2022-06-02 13:43 | DI.CT.S_ITS ---
PROCEDURE: CT HEAD/BRAIN WO CON INDICATIONS: seizure TECHNIQUE: Noncontrast 4.5 mm thick angled axial sections acquired from the foramen magnum to the vertex, with coronal and sagittal reformats. For radiation dose reduction, the following was used: automated exposure control, adjustment of mA and/or kV according to patient size. COMPARISON: [facility], CT, CT HEAD/BRAIN WO CON, 06/30/2021, 11:03. [facility], CT, CT HEAD/BRAIN WO CON, 09/19/2021, 20:13. [facility], CT, CT HEAD/BRAIN WO CON, 02/22/2022, 13:55. [facility], CT, CT HEAD/BRAIN WO CON, 03/09/2022, 11:58. [facility], CR, XR CHEST 1V, 06/02/2022, 15:14. [facility], CT, CT HEAD/BRAIN WO CON, 04/17/2022, 14:30. FINDINGS: Image quality: Excellent. CSF spaces: Basal cisterns are patent. No extra-axial fluid collections. Ventricles are normal in size and shape. Brain: No midline shift. No intracranial masses or hemorrhage. Aggarwal-white matter interface is normal. Skull and face: Calvarium and visualized facial bones are intact, without suspicious lesions. Sinuses: Visualized sinuses and mastoids are clear. IMPRESSION: Normal noncontrast head CT. Stable from prior. Dictated by: Shaji Villanueva M.D. on 06/02/2022 at 15:03 Approved by: Shaji Villanueva M.D. on 06/02/2022 at 15:04
--- NOTE | 2022-06-02 13:53 | ED_ITS ---
HPI - Seizure <Carolyn Briggs DO - Last Filed: 06/07/22 22:16> General Chief Complaint: Seizure Stated Complaint: Seizure Time Seen by Provider: 06/02/22 13:53 Source: patient, EMS and old records reviewed Mode of arrival: EMS Limitations: no limitations History of Present Illness HPI Narrative: This is a 26-year-old male with known seizure disorder who is not typically seen in the emergency department. Patient is on Keppra and divalproex. Patient does not believe he takes any other daily medications but states his parents manage these. Patient had reportedly 4 episodes of seizure activity today, 1 was in the bathroom and he did hit his head he does have a hematoma on the side of his head. Patient does not recall how many he had he does state that he had seizures today. He is alert, he is appropriate but does not remember all information. States he was diagnosed around age 21 he states he is not sure the exact cause or that they have found 1. He states to ask his parents if he is following with a neurologist regularly. Patient denies any other medical issues. He denies surgeries. He denies tobacco, states he sat drinking alcohol around age 21, states he does use marijuana. He had some emesis earlier and was given Zofran EN route with EMS. Patient believes he has been taking his medications but states his parents manage this and give him his meds. He does l john at home with his parents Related Data Home Medications Medication Instructions Recorded Confirmed escitalopram oxalate 10 mg tablet 10 mg PO DAILY 09/20/21 04/17/22 levetiracetam 500 mg 2,000 mg PO QPM 09/20/21 04/17/22 tablet,extended release 24 hr levetiracetam 500 mg 1,500 mg PO DAILY 02/22/22 04/17/22 tablet,extended release 24 hr Allergies Allergy/AdvReac Type Severity Reaction Status Date / Time No Known Drug Allergies Allergy Verified 06/02/22 14:05 Review of Systems <Carolyn Briggs DO - Last Filed: 06/07/22 22:16> Review of Systems ROS Unobtainable: All systems reviewed & are unremarkable except as noted in HPI and below Patient History <Carolyn Briggs DO - Last Filed: 06/07/22 22:16> Medical History Bipolar 1 disorder Renal insufficiency Seizure disorder Surgical History Hx of adenoidectomy Hx of tonsillectomy Family History Mother Diabetes mellitus Father Alive and well Social History household members: family Smoking Status: Current every day smoker alcohol intake: current Smoking Status: Current every day smoker alcohol intake frequency: holidays/special occasions only Substance Use Type: marijuana Exam <Carolyn Briggs DO - Last Filed: 06/07/22 22:16> Narrative Exam Narrative: GEN: Patient appears in mild distress. HEAD: No evidence of patient has a hematoma on the right temporal scalp with a s mall abrasion, no raccoon/Parks sign. NECK: Nontender, painless range of motion, trachea midline Negative Nexus criteria, there is no midline line tenderness, distracting injury, altered mental status, neuro deficit, recent EtOH. EYES: PERRLA, EOMI ENT: External inspection normal, trachea is midline, TM's are normal no hemotypanum, Nares are clear, no septal hematoma, no dental or oral injury, ai rway is normal and with normal occlusion, No bony tenderness RESP: Chest is nontender and has symmetric movement, no ecchymosis, breath sounds are normal no crackles, wheezes or rales CVS: Heart sounds are normal, no murmur noted, No JVD. ABG/GI: Nontender, soft, normal bowel sounds, no distention, no organomegaly, pelvic rock is negative NEURO: Oriented AOx3, neuro is grossly intact, sensation and motor is normal all 4 extremities moving, cranial nerves II through XII are intact, GCS is 14, mil dly confused. PSYCH: Normal mood and affect SKIN: Intact, warm and dry, no crepitus and without decubitus BACK: No CVA tenderness, no vertebral tenderness, no step-off's, no crepitus EXT: Atraumatic, hips are nontender, no pedal edema, normal color and temperature, normal range of motion of extremities with normal tendon exam, 2+ pulses in all four extremities Initial Vital Signs Initial Vital Signs: Vital Signs Pulse Rate 88 06/02/22 14:06 Respiratory Rate 18 06/02/22 14:06 Blood Pressure 123/78 06/02/22 14:06 Pulse Oximetry 99 06/02/22 14:06 Oxygen Delivery Method 06/02/22 14:06 <Juancho De La Rosa MD - Last Filed: 06/03/22 06:35> Initial Vital Signs Initial Vital Signs: Vital Signs Pulse Rate 88 06/02/22 14:06 Respiratory Rate 18 06/02/22 14:06 Blood Pressure 123/78 06/02/22 14:06 Pulse Oximetry 99 06/02/22 14:06 Oxygen Delivery Method 06/02/22 14:06 Scores <Carolyn Briggs DO - Last Filed: 06/07/22 22:16> GCS Anais coma scale eye opening: Spontaneous [place] coma scale verbal response: Confused Anais coma scale motor response: Obey commands Anais coma scale total score: 14 <Juancho De La Rosa MD - Last Filed: 06/03/22 06:35> GCS Anais coma scale total score: 14 Course <Carolyn Briggs DO - Last Filed: 06/07/22 22:16> Orders Ordered: Discontinued Medications Diazepam (Diazepam 10 Mg/2 Ml Syringe) 2 mg IV NOW ONE Stop: 06/02/22 14:45 Last Admin: 06/02/22 14:54 Dose: 2 mg Documented By: LENNY Diazepam (Diazepam 10 Mg/2 Ml Syringe) 2.5 mg IV NOW ONE Stop: 06/02/22 14:45 Last Admin: 06/02/22 15:35 Dose: Not Given Documented By: SEAN Diazepam (Diazepam 10 Mg/2 Ml Syringe) 2 mg IV NOW ONE Stop: 06/02/22 15:26 Last Admin: 06/02/22 15:34 Dose: 2 mg Documented By: SEAN Levetiracetam 1,000 mg/ Sodium (Chloride) 110 mls @ 440 mls/hr IV NOW ONE Stop: 06/02/22 13:53 Last Infusion: 06/02/22 15:12 Dose: 0 mls/hr Documented By: Admin: 06/02/22 14:52 Dose: 440 mls/hr Documented By: LENNY Sodium Chloride (Normal Saline 0.9%) 1,000 mls @ 1,000 mls/hr IV BOLUS ONE Stop: 06/02/22 14:51 Last Infusion: 06/02/22 16:22 Dose: 0 mls/hr Documented By: Admin: 06/02/22 14:53 Dose: 1,000 mls/hr Documented By: LENNY Valproic Acid 1,000 mg/ (Dextrose) 60 mls @ 60 mls/hr IV NOW ONE Stop: 06/02/22 15:50 Last Infusion: 06/02/22 18:06 Dose: 0 mls/hr Documented By: Admin: 06/02/22 16:06 Dose: 60 mls/hr Documented By: LENNY Ondansetron HCl (Ondansetron 4 Mg/2 Ml Inj) 4 mg IV NOW ONE Stop: 06/02/22 18:08 Last Admin: 06/02/22 18:10 Dose: 4 mg Documented By: LENNY Reevaluation(s) Reevaluation #1: Patient had tonic-clonic seizure activity for approximately 2 minutes in the department seizure activity was stopping patient did receive Valium 2.5 mg IV Reevaluation #2: Patient received 2nd dose of Valium 2.5 mg IV while in CT he was still postictal and moving quite a bit this was to help with CT imaging and was not secondary to seizure activity Reevaluation #3: Patient is alert, conversant, is having some nausea vomiting which both he and his mother indicate is typical of his postictal state. Time: 18:10 Consultations Consultation #1: Dr. Garcia, neurology at [facility]. Patient is recommended to continue with the plan for Keppra a 1000 mg load. No clear cause otherwise. Compliant should not be an issue as patient has parents are distributing his medication. They recommended loading patient with Vimpat 100 mg IV, followed by 50 mg b.i.d. if this is unavailable at our facility valproic acid a 1000 mg followed by 750 mg b.i.d. if patient does not return to baseline has recurrent seizures or is continuing to worsen to recontact. Currently [facility] has no beds available Time: 13:50 Vital Signs Vital signs: Vital Signs - 8 hr 06/02/22 15:03 06/02/22 14:45 06/02/22 14:30 Pulse Rate 122 H 163 H 85 Respiratory Rate 22 20 Blood Pressure 127/84 136/79 Pulse Oximetry 96 92 96 Oxygen Delivery Method Non -Rebreather Non -Rebreather Room Air Oxygen Flow Rate 15 15 06/02/22 15:02 06/02/22 15:37 06/02/22 15:38 Pulse Rate 131 H 87 Respiratory Rate 22 Blood Pressure 140/80 Pulse Oximetry 97 96 Oxygen Delivery Method Oxygen Flow Rate 06/02/22 15:38 06/02/22 16:00 06/02/22 16:00 Pulse Rate 91 H 93 H Respiratory Rate 22 19 Blood Pressure 144/64 H Pulse Oximetry 96 97 Oxygen Delivery Method Oxygen Flow Rate 06/02/22 16:30 06/02/22 16:31 06/02/22 16:31 Pulse Rate 92 H 87 Respiratory Rate 25 H 25 H Blood Pressure 143/61 H Pulse Oximetry 96 98 Oxygen Delivery Method Oxygen Flow Rate 06/02/22 17:00 06/02/22 17:00 06/02/22 17:30 Pulse Rate 101 H Respiratory Rate 33 H Blood Pressure 134/63 136/67 Pulse Oximetry 100 Oxygen Delivery Method Oxygen Flow Rate 06/02/22 17:30 06/02/22 18:00 06/02/22 18:00 Pulse Rate 109 H 116 H Respiratory Rate 20 30 H Blood Pressure 122/57 L Pulse Oximetry 99 100 Oxygen Delivery Method Oxygen Flow Rate 06/02/22 18:30 06/02/22 18:30 Pulse Rate 118 H Respiratory Rate 20 Blood Pressure 132/76 Pulse Oximetry 99 Oxygen Delivery Method Oxygen Flow Rate <Juancho De La Rosa MD - Last Filed: 06/03/22 06:35> Course Course Narrative: 6:00 p.[address].. Sign out from Dr. Briggs patient here with mother. Has history of epilepsy/seizures. Has had multiple seizures today. Five seizures. Had 1 here witnessed. His postictal. His neurologist Dr. Garcia with [facility] was contacted here. Medication suggestions were given as well as changes for at home. At this time patient is postictal. Has expected. Disposition pending improvement 8:00 p.m.. Spoke with mother. At bedside. Patient is sleeping right now. Understands treatment plan if not improving will admit/transfer. Otherwise if improves can go home with new regimen of medication a valproic acid Orders Ordered: Discontinued Medications Diazepam (Diazepam 10 Mg/2 Ml Syringe) 2 mg IV NOW ONE Stop: 06/02/22 14:45 Last Admin: 06/02/22 14:54 Dose: 2 mg Documented By: LENNY Diazepam (Diazepam 10 Mg/2 Ml Syringe) 2.5 mg IV NOW ONE Stop: 06/02/22 14:45 Last Admin: 06/02/22 15:35 Dose: Not Given Documented By: SEAN Diazepam (Diazepam 10 Mg/2 Ml Syringe) 2 mg IV NOW ONE Stop: 06/02/22 15:26 Last Admin: 06/02/22 15:34 Dose: 2 mg Documented By: SEAN Levetiracetam 1,000 mg/ Sodium (Chloride) 110 mls @ 440 mls/hr IV NOW ONE Stop: 06/02/22 13:53 Last Infusion: 06/02/22 15:12 Dose: 0 mls/hr Documented By: Admin: 06/02/22 14:52 Dose: 440 mls/hr Documented By: LENNY Sodium Chloride (Normal Saline 0.9%) 1,000 mls @ 1,000 mls/hr IV BOLUS ONE Stop: 06/02/22 14:51 Last Infusion: 06/02/22 16:22 Dose: 0 mls/hr Documented By: Admin: 06/02/22 14:53 Dose: 1,000 mls/hr Documented By: LENNY Valproic Acid 1,000 mg/ (Dextrose) 60 mls @ 60 mls/hr IV NOW ONE Stop: 06/02/22 15:50 Last Infusion: 06/02/22 18:06 Dose: 0 mls/hr Documented By: Admin: 06/02/22 16:06 Dose: 60 mls/hr Documented By: LENNY Ondansetron HCl (Ondansetron 4 Mg/2 Ml Inj) 4 mg IV NOW ONE Stop: 06/02/22 18:08 Last Admin: 06/02/22 18:10 Dose: 4 mg Documented By: LENNY Reevaluation(s) Additional Reevaluation(s): 10:16 p.m.. Patient has been here for over 8 hours. Patient feeling much better. He is awake alert oriented x4. Clear speech. He is tired but awake. Reviewed with patient and mother. They do desire discharge home as they have gone through this before and he needs to rest at home. Medication changes in the discharge instructions. Return precautions reviewed with him Vital Signs Vital signs: Vital Signs - 8 hr 06/02/22 15:03 06/02/22 14:45 06/02/22 14:30 Pulse Rate 122 H 163 H 85 Respiratory Rate 22 20 Blood Pressure 127/84 136/79 Pulse Oximetry 96 92 96 Oxygen Delivery Method Non -Rebreather Non -Rebreather Room Air Oxygen Flow Rate 15 15 06/02/22 15:02 06/02/22 15:37 06/02/22 15:38 Pulse Rate 131 H 87 Respiratory Rate 22 Blood Pressure 140/80 Pulse Oximetry 97 96 Oxygen Delivery Method Oxygen Flow Rate 06/02/22 15:38 06/02/22 16:00 06/02/22 16:00 Pulse Rate 91 H 93 H Respiratory Rate 22 19 Blood Pressure 144/64 H Pulse Oximetry 96 97 Oxygen Delivery Method Oxygen Flow Rate 06/02/22 16:30 06/02/22 16:31 06/02/22 16:31 Pulse Rate 92 H 87 Respiratory Rate 25 H 25 H Blood Pressure 143/61 H Pulse Oximetry 96 98 Oxygen Delivery Method Oxygen Flow Rate 06/02/22 17:00 06/02/22 17:00 06/02/22 17:30 Pulse Rate 101 H Respiratory Rate 33 H Blood Pressure 134/63 136/67 Pulse Oximetry 100 Oxygen Delivery Method Oxygen Flow Rate 06/02/22 17:30 06/02/22 18:00 06/02/22 18:00 Pulse Rate 109 H 116 H Respiratory Rate 20 30 H Blood Pressure 122/57 L Pulse Oximetry 99 100 Oxygen Delivery Method Oxygen Flow Rate 06/02/22 18:30 06/02/22 18:30 Pulse Rate 118 H Respiratory Rate 20 Blood Pressure 132/76 Pulse Oximetry 99 Oxygen Delivery Method Oxygen Flow Rate MDM - Seizure <Carolyn Briggs, - Last Filed: 06/07/22 22:16> Lab Data Result diagrams: 06/02/22 14:10 06/02/22 14:10 Labs: Lab Results 06/02/22 06/02/22 06/02/22 Range/Units 14:10 14:10 14:10 WBC 18.6 H (4.5-11.0) X10^3/uL RBC 4.30 L (4.5-5.9) X10^6/uL Hgb 12.8 L (13.5-17.5) g/dL Hct 37.4 L (41-53) % MCV 87.0 (80-100) fL MCH 29.9 (26-34) PG MCHC 34.3 (30-36) % RDW 14.1 (11.6-14.8) % Plt Count 292 (150-400) X10^3/uL Neut % (Auto) 86.0 H (50-75) % Lymph % (Auto) 6.3 L (25-40) % [place] % (Auto) 7.5 (3-14) % Eos % (Auto) 0.0 L (2-4) % Baso % (Auto) 0.2 (0-2) % Neut # (Auto) 94991 H (1935-4385) /uL Lymph # (Auto) 1200 (9904-2521) /uL [place] # (Auto) 1400 H (0-900) /uL Eos # (Auto) 0 (0-450) /uL Baso # (Auto) 0 (0-100) /uL Sodium 142 (137-145) mmol/L Potassium 4.0 (3.4-5.1) mmol/L Chloride 110 H (98-107) mmol/L Carbon Dioxide 18 L (22-32) mmol/L BUN 13 (9-20) mg/dL Creatinine 0.86 (0.66-1.25) mg/dL Estimated GFR > 60 (>60) mL/min BUN/Creatinine Ratio 15.1 (6-22) Glucose 167 H (70-100) mg/dL Calcium 8.9 (8.4-10.2) mg/dL Phosphorus 2.5 (2.5-4.5) mg/dL Magnesium 2.1 (1.6-2.3) mg/dL Total Bilirubin 0.2 (0.2-1.3) mg/dL AST 33 (17-59) IU/L ALT 19 (<50) IU/L Alkaline Phosphatase 64 (38-126) U/L Total Protein 8.2 (6.3-8.2) g/dL Albumin 5.0 (3.5-5.0) g/dL Globulin 3.2 (1.7-4.1) g/dL Albumin/Globulin Ratio 1.6 (1.0-2.8) TSH 0.780 (0.47-4.68) uIU/mL Urine Color Urine Appearance Urine pH (4.5-8.0) Ur Specific [place] (1.000-1.035) Urine Protein (Negative) Urine Glucose (UA) (Negative) g/dL Urine Ketones (NEGATIVE) Urine Occult Blood (Negative) Urine Nitrate (Negative) Urine Bilirubin (NEGATIVE) Urine Urobilinogen (0.2) E.U./dL Ur Leukocyte Esterase (NEGATIVE) Urine RBC (0-5/HPF) Urine WBC (0-5/HPF) Uric Acid Crystals (None) Urine Bacteria (None) Ur Culture Indicated? U Opiates 300ng/mL cut (Negative) Ur Oxycodone Screen (Negative) Urine Methadone Screen (Negative) Ur Barbiturates Screen (Negative) Total Valproic Acid (50-100) ug/mL U Tricyclic Antidepress (Negative) Levetiracetam (10.0-40.0) ug/mL Ur Phencyclidine Scrn (Negative) Ur Amphetamines Screen (Negative) U Methamphetamines Scrn (Negative) Ur MDMA Scrn (Ecstasy) (Negative) U Benzodiazepines Scrn (Negative) Urine Cocaine Screen (Negative) U Marijuana (THC) Screen (Negative) Ethyl Alcohol < 10 ( - 10) mg/dL SARS-CoV-2 (PCR) (Negative) 06/02/22 06/02/22 06/02/22 Range/Units 14:10 15:00 16:02 WBC (4.5-11.0) X10^3/uL RBC (4.5-5.9) X10^6/uL Hgb (13.5-17.5) g/dL Hct (41-53) % MCV (80-100) fL MCH (26-34) PG MCHC (30-36) % RDW (11.6-14.8) % Plt Count (150-400) X10^3/uL Neut % (Auto) (50-75) % Lymph % (Auto) (25-40) % [place] % (Auto) (3-14) % Eos % (Auto) (2-4) % Baso % (Auto) (0-2) % Neut # (Auto) (1152-9204) /uL Lymph # (Auto) (4900-3377) /uL [place] # (Auto) (0-900) /uL Eos # (Auto) (0-450) /uL Baso # (Auto) (0-100) /uL Sodium (137-145) mmol/L Potassium (3.4-5.1) mmol/L Chloride (98-107) mmol/L Carbon Dioxide (22-32) mmol/L BUN (9-20) mg/dL Creatinine (0.66-1.25) mg/dL Estimated GFR (>60) mL/min BUN/Creatinine Ratio (6-22) Glucose (70-100) mg/dL Calcium (8.4-10.2) mg/dL Phosphorus (2.5-4.5) mg/dL Magnesium (1.6-2.3) mg/dL Total Bilirubin (0.2-1.3) mg/dL AST (17-59) IU/L ALT (<50) IU/L Alkaline Phosphatase (38-126) U/L Total Protein (6.3-8.2) g/dL Albumin (3.5-5.0) g/dL Globulin (1.7-4.1) g/dL Albumin/Globulin Ratio (1.0-2.8) TSH (0.47-4.68) uIU/mL Urine Color Urine Appearance Urine pH (4.5-8.0) Ur Specific [place] (1.000-1.035) Urine Protein (Negative) Urine Glucose (UA) (Negative) g/dL Urine Ketones (NEGATIVE) Urine Occult Blood (Negative) Urine Nitrate (Negative) Urine Bilirubin (NEGATIVE) Urine Urobilinogen (0.2) E.U./dL Ur Leukocyte Esterase (NEGATIVE) Urine RBC (0-5/HPF) Urine WBC (0-5/HPF) Uric Acid Crystals (None) Urine Bacteria (None) Ur Culture Indicated? U Opiates 300ng/mL cut (Negative) Ur Oxycodone Screen (Negative) Urine Methadone Screen (Negative) Ur Barbiturates Screen (Negative) Total Valproic Acid 7 L (50-100) ug/mL U Tricyclic Antidepress (Negative) Levetiracetam < 1.0 L (10.0-40.0) ug/mL Ur Phencyclidine Scrn (Negative) Ur Amphetamines Screen (Negative) U Methamphetamines Scrn (Negative) Ur MDMA Scrn (Ecstasy) (Negative) U Benzodiazepines Scrn (Negative) Urine Cocaine Screen (Negative) U Marijuana (THC) Screen (Negative) Ethyl Alcohol ( - 10) mg/dL SARS-CoV-2 (PCR) Negative (Negative) 06/02/22 06/02/22 Range/Units 18:00 18:00 WBC (4.5-11.0) X10^3/uL RBC (4.5-5.9) X10^6/uL Hgb (13.5-17.5) g/dL Hct (41-53) % MCV (80-100) fL MCH (26-34) PG MCHC (30-36) % RDW (11.6-14.8) % Plt Count (150-400) X10^3/uL Neut % (Auto) (50-75) % Lymph % (Auto) (25-40) % [place] % (Auto) (3-14) % Eos % (Auto) (2-4) % Baso % (Auto) (0-2) % Neut # (Auto) (2936-9158) /uL Lymph # (Auto) (5518-9464) /uL [place] # (Auto) (0-900) /uL Eos # (Auto) (0-450) /uL Baso # (Auto) (0-100) /uL Sodium (137-145) mmol/L Potassium (3.4-5.1) mmol/L Chloride (98-107) mmol/L Carbon Dioxide (22-32) mmol/L BUN (9-20) mg/dL Creatinine (0.66-1.25) mg/dL Estimated GFR (>60) mL/min BUN/Creatinine Ratio (6-22) Glucose (70-100) mg/dL Calcium (8.4-10.2) mg/dL Phosphorus (2.5-4.5) mg/dL Magnesium (1.6-2.3) mg/dL Total Bilirubin (0.2-1.3) mg/dL AST (17-59) IU/L ALT (<50) IU/L Alkaline Phosphatase (38-126) U/L Total Protein (6.3-8.2) g/dL Albumin (3.5-5.0) g/dL Globulin (1.7-4.1) g/dL Albumin/Globulin Ratio (1.0-2.8) TSH (0.47-4.68) uIU/mL Urine Color Straw Urine Appearance Clear Urine pH 5.0 (4.5-8.0) Ur Specific [place] 1.020 (1.000-1.035) Urine Protein Trace H (Negative) Urine Glucose (UA) Trace H (Negative) g/dL Urine Ketones Trace H (NEGATIVE) Urine Occult Blood 1+ H (Negative) Urine Nitrate Negative (Negative) Urine Bilirubin Negative (NEGATIVE) Urine Urobilinogen 0.2 (0.2) E.U./dL Ur Leukocyte Esterase Negative (NEGATIVE) Urine RBC 1-5/hpf (0-5/HPF) Urine WBC 0-1/hpf (0-5/HPF) Uric Acid Crystals Few H (None) Urine Bacteria None seen (None) Ur Culture Indicated? Cult not indicated U Opiates 300ng/mL cut Negative (Negative) Ur Oxycodone Screen Negative (Negative) Urine Methadone Screen Negative (Negative) Ur Barbiturates Screen Negative (Negative) Total Valproic Acid (50-100) ug/mL U Tricyclic Antidepress Negative (Negative) Levetiracetam (10.0-40.0) ug/mL Ur Phencyclidine Scrn Negative (Negative) Ur Amphetamines Screen Negative (Negative) U Methamphetamines Scrn Negative (Negative) Ur MDMA Scrn (Ecstasy) Negative (Negative) U Benzodiazepines Scrn Negative (Negative) Urine Cocaine Screen Negative (Negative) U Marijuana (THC) Screen Positive H (Negative) Ethyl Alcohol ( - 10) mg/dL SARS-CoV-2 (PCR) (Negative) Imaging Data CT scan - head: Radiologist's Impression: Leeroy Wilson II??26??M??1995 ? Allergy/Adv: No Known Drug Allergies (More??) Close Head CT (Signed) Shaji Villanueva - 06/02/22 Chest X-Ray (Signed) Shaji Villanueva - 06/02/[address] (Signed) Ramone Bañuelos - 04/17/22 Chest X-Ray (Signed) Ramone Bañuelos - 04/17/[address] (Signed) Ramone Bañuelos - 03/09/22 Chest X-Ray (Signed) Leeroy Woodall - 02/24/22 Abdomen Ultrasound (Signed) William Lucio - 02/23/22 Telemetry Strips 02/22/22 Chest X-Ray (Signed) Rigoberto Miranda - 02/22/[address] (Signed) LadogaShaji - 02/22/22 Finger X-Ray (Signed) William Lucio - 09/27/21 Telemetry Strips 09/20/21 Abdomen/Pelvis CT (Signed) LadogaShaji conner - 09/19/[address] (Signed) KendallChandan - 09/19/21 Chest X-Ray (Signed) Chandan Argueta - 09/19/21 Abdomen/Pelvis CT (Signed) Dorie Goel - 06/30/[address] (Signed) Dorie Goel - 06/30/21 Launch?Image [address] [address] [address] Scan Report Signed Patient: Leeroy Wilson II MR#: [id number] : 1995 Acct:[id number] Age/Sex: 26 / M Date of Service: 06/02/22 Loc: ED Accession Number: [id number] ?? Procedure: CT head/brain wo con Ordering Provider: Carolyn Briggs D.O. PROCEDURE:? CT HEAD/BRAIN WO CON ? INDICATIONS:? seizure ? TECHNIQUE:? Noncontrast 4.5 mm thick angled axial sections acquired from the foramen magnum to the vertex, with coronal and sagittal reformats.? For radiation dose reduction, the following was used:? automated exposure control, adjustment of mA and/or kV according to patient size.? ? COMPARISON:? [facility], CT, CT HEAD/BRAIN WO CON, 06/30/2021, 11:03.? [facility], CT, CT HEAD/BRAIN WO CON, 09/19/2021, 20:13.? [facility], CT, CT HEAD/BRAIN WO CON, 02/22/2022, 13:55.? [facility], CT, CT HEAD/BRAIN WO CON, 03/09/2022, 11:58.? Formerly [facility], CR, XR CHEST 1V, 06/02/2022, 15:14.? [facility], CT, CT HEAD/BRAIN WO CON, 04/17/2022, 14:30. ? FINDINGS:? Image quality:? Excellent.? ? CSF spaces:? Basal cisterns are patent.? No extra-axial fluid collections.? Ventricles are normal in size and shape.? ? Brain:? No midline shift.? No intracranial masses or hemorrhage.? Aggarwal-white matter interface is normal.? ? Skull and face:? Calvarium and visualized facial bones are intact, without suspicious lesions.? ? Sinuses:? Visualized sinuses and mastoids are clear.? IMPRESSION:? Normal noncontrast head CT.? Stable from prior. ? ? Dictated by: Shaji Villanueva M.D. on 06/02/2022 at 15:03 ? ? Approved by: Shaji Villanueva M.D. on 06/02/2022 at 15:04?? Chest x-ray: Radiologist's Impression: [address] [address] XRay Report Signed Patient: Leeroy Wilson II MR#: [id number] : 1995 Acct:[id number] Age/Sex: 26 / M Date of Service: 06/02/22 Loc: ED Accession Number: [id number] ?? Procedure: XR chest 1V Ordering Provider: Carolyn Briggs D.O. PROCEDURE:? XR CHEST 1V ? INDICATIONS:? seizure ? TECHNIQUE:? One view of the chest was acquired.? ? COMPARISON:? [facility], CR, XR CHEST 1V, 02/24/2022, 14:32.? [facility], CT, CT HEAD/BRAIN WO CON, 06/02/2022, 15:17.? [facility], CR, XR CHEST 1V, 04/17/2022, 13:50. ? FINDINGS:? ? Surgical changes and devices:? None.? ? Lungs and pleura:? On this semiupright portable chest examination, no large pneumothorax or large pleural effusions are seen.? No focal infiltrates are seen.? Low lung volumes are noted. This causes a crowded appearance to the lung markings and limits evaluation.? ? Mediastinum:? Mediastinal contours appear normal.? Heart size is normal.? ? Bones and chest wall:? No suspicious bony lesions.? Overlying soft tissues appear unremarkable.? IMPRESSION:? ? Limited portable chest examination, without a significant cardiopulmonary abnormality identified.? ? ? Dictated by: Shaji Villanueva M.D. on 06/02/2022 at 15:02 ? ? Approved by: Shaji Villanueva M.D. on 06/02/2022 at 15:02?? ECG Data Attestation: I personally reviewed and interpreted this ECG as follows: Interpretation: Sinus rhythm rate 89 CT 130 QRS 86 and QTC 425. Inverted lead in 3 upright in aVL which is atypical possible limb lead flipped. Patient has prior from 06/30/2021 for comparison. [facility] Narrative Medical decision making narrative: This is a 26-year-old male with known seizure disorder starting age 21. Patient also has known bipolar. He is on Keppra and valproic acid. No clear causes or triggers for his seizures today but he is had 5 seizures total he has returned to baseline in between some of them he started this morning he had some intranasal Versed at 7:30 a.m. this morning but none persistently. Patient has had 5 seizures total today only 1 in the department. After Valium and being loaded with Keppra and valproic acid in the department his mentation appears to be improving. Patient does not have any other acute changes found. He does have a leukocytosis although this could be reactive he has been afebrile, hemoglobin stable at 12 with a normal crit, chloride was 1 time CO2 is 18 but this is likely secondary to lactic acidosis from seizure activity. Glucose is 167 with no other renal electrolyte abnormalities and normal LFTs and TSH. Urine does not show any signs of infection he does have some ketones. Toxicology is positive for marijuana, no EtOH. Keppra and total valproic acid levels were sent. Patient covid swab is negative. Patient is signed out to Dr. De La Rosa for continued monitoring over the next several hours to make sure patient does not have any additional seizure activity if he does well plan is for discharge home with alterations to his antiseizure medication. If he has recurrent seizure activity plan recontact Neurology at [facility]. Recommendations from Dr. Garcia from [facility] are included below including loading him with valproic acid. <Juancho De La Rosa MD - Last Filed: 06/03/22 06:35> Differential Diagnosis Differential diagnosis: Likely intractable seizure disorder, febrile convulsion, focal seizure, generalized seizure, epileptic seizure and status epilepticus Lab Data Labs: Lab Results 06/02/22 06/02/22 06/02/22 Range/Units 14:10 14:10 14:10 WBC 18.6 H (4.5-11.0) X10^3/uL RBC 4.30 L (4.5-5.9) X10^6/uL Hgb 12.8 L (13.5-17.5) g/dL Hct 37.4 L (41-53) % MCV 87.0 (80-100) fL MCH 29.9 (26-34) PG MCHC 34.3 (30-36) % RDW 14.1 (11.6-14.8) % Plt Count 292 (150-400) X10^3/uL Neut % (Auto) 86.0 H (50-75) % Lymph % (Auto) 6.3 L (25-40) % [place] % (Auto) 7.5 (3-14) % Eos % (Auto) 0.0 L (2-4) % Baso % (Auto) 0.2 (0-2) % Neut # (Auto) 51048 H (6553-6104) /uL Lymph # (Auto) 1200 (3645-8251) /uL [place] # (Auto) 1400 H (0-900) /uL Eos # (Auto) 0 (0-450) /uL Baso # (Auto) 0 (0-100) /uL Sodium 142 (137-145) mmol/L Potassium 4.0 (3.4-5.1) mmol/L Chloride 110 H (98-107) mmol/L Carbon Dioxide 18 L (22-32) mmol/L BUN 13 (9-20) mg/dL Creatinine 0.86 (0.66-1.25) mg/dL Estimated GFR > 60 (>60) mL/min BUN/Creatinine Ratio 15.1 (6-22) Glucose 167 H (70-100) mg/dL Calcium 8.9 (8.4-10.2) mg/dL Phosphorus 2.5 (2.5-4.5) mg/dL Magnesium 2.1 (1.6-2.3) mg/dL Total Bilirubin 0.2 (0.2-1.3) mg/dL AST 33 (17-59) IU/L ALT 19 (<50) IU/L Alkaline Phosphatase 64 (38-126) U/L Total Protein 8.2 (6.3-8.2) g/dL Albumin 5.0 (3.5-5.0) g/dL Globulin 3.2 (1.7-4.1) g/dL Albumin/Globulin Ratio 1.6 (1.0-2.8) TSH 0.780 (0.47-4.68) uIU/mL Urine Color Urine Appearance Urine pH (4.5-8.0) Ur Specific [place] (1.000-1.035) Urine Protein (Negative) Urine Glucose (UA) (Negative) g/dL Urine Ketones (NEGATIVE) Urine Occult Blood (Negative) Urine Nitrate (Negative) Urine Bilirubin (NEGATIVE) Urine Urobilinogen (0.2) E.U./dL Ur Leukocyte Esterase (NEGATIVE) Urine RBC (0-5/HPF) Urine WBC (0-5/HPF) Uric Acid Crystals (None) Urine Bacteria (None) Ur Culture Indicated? U Opiates 300ng/mL cut (Negative) Ur Oxycodone Screen (Negative) Urine Methadone Screen (Negative) Ur Barbiturates Screen (Negative) Total Valproic Acid (50-100) ug/mL U Tricyclic Antidepress (Negative) Levetiracetam (10.0-40.0) ug/mL Ur Phencyclidine Scrn (Negative) Ur Amphetamines Screen (Negative) U Methamphetamines Scrn (Negative) Ur MDMA Scrn (Ecstasy) (Negative) U Benzodiazepines Scrn (Negative) Urine Cocaine Screen (Negative) U Marijuana (THC) Screen (Negative) Ethyl Alcohol < 10 ( - 10) mg/dL SARS-CoV-2 (PCR) (Negative) 06/02/22 06/02/22 06/02/22 Range/Units 14:10 15:00 16:02 WBC (4.5-11.0) X10^3/uL RBC (4.5-5.9) X10^6/uL Hgb (13.5-17.5) g/dL Hct (41-53) % MCV (80-100) fL MCH (26-34) PG MCHC (30-36) % RDW (11.6-14.8) % Plt Count (150-400) X10^3/uL Neut % (Auto) (50-75) % Lymph % (Auto) (25-40) % [place] % (Auto) (3-14) % Eos % (Auto) (2-4) % Baso % (Auto) (0-2) % Neut # (Auto) (9175-0473) /uL Lymph # (Auto) (2550-0682) /uL [place] # (Auto) (0-900) /uL Eos # (Auto) (0-450) /uL Baso # (Auto) (0-100) /uL Sodium (137-145) mmol/L Potassium (3.4-5.1) mmol/L Chloride (98-107) mmol/L Carbon Dioxide (22-32) mmol/L BUN (9-20) mg/dL Creatinine (0.66-1.25) mg/dL Estimated GFR (>60) mL/min BUN/Creatinine Ratio (6-22) Glucose (70-100) mg/dL Calcium (8.4-10.2) mg/dL Phosphorus (2.5-4.5) mg/dL Magnesium (1.6-2.3) mg/dL Total Bilirubin (0.2-1.3) mg/dL AST (17-59) IU/L ALT (<50) IU/L Alkaline Phosphatase (38-126) U/L Total Protein (6.3-8.2) g/dL Albumin (3.5-5.0) g/dL Globulin (1.7-4.1) g/dL Albumin/Globulin Ratio (1.0-2.8) TSH (0.47-4.68) uIU/mL Urine Color Urine Appearance Urine pH (4.5-8.0) Ur Specific [place] (1.000-1.035) Urine Protein (Negative) Urine Glucose (UA) (Negative) g/dL Urine Ketones (NEGATIVE) Urine Occult Blood (Negative) Urine Nitrate (Negative) Urine Bilirubin (NEGATIVE) Urine Urobilinogen (0.2) E.U./dL Ur Leukocyte Esterase (NEGATIVE) Urine RBC (0-5/HPF) Urine WBC (0-5/HPF) Uric Acid Crystals (None) Urine Bacteria (None) Ur Culture Indicated? U Opiates 300ng/mL cut (Negative) Ur Oxycodone Screen (Negative) Urine Methadone Screen (Negative) Ur Barbiturates Screen (Negative) Total Valproic Acid 7 L (50-100) ug/mL U Tricyclic Antidepress (Negative) Levetiracetam < 1.0 L (10.0-40.0) ug/mL Ur Phencyclidine Scrn (Negative) Ur Amphetamines Screen (Negative) U Methamphetamines Scrn (Negative) Ur MDMA Scrn (Ecstasy) (Negative) U Benzodiazepines Scrn (Negative) Urine Cocaine Screen (Negative) U Marijuana (THC) Screen (Negative) Ethyl Alcohol ( - 10) mg/dL SARS-CoV-2 (PCR) Negative (Negative) 06/02/22 06/02/22 Range/Units 18:00 18:00 WBC (4.5-11.0) X10^3/uL RBC (4.5-5.9) X10^6/uL Hgb (13.5-17.5) g/dL Hct (41-53) % MCV (80-100) fL MCH (26-34) PG MCHC (30-36) % RDW (11.6-14.8) % Plt Count (150-400) X10^3/uL Neut % (Auto) (50-75) % Lymph % (Auto) (25-40) % [place] % (Auto) (3-14) % Eos % (Auto) (2-4) % Baso % (Auto) (0-2) % Neut # (Auto) (8758-3108) /uL Lymph # (Auto) (8731-6294) /uL [place] # (Auto) (0-900) /uL Eos # (Auto) (0-450) /uL Baso # (Auto) (0-100) /uL Sodium (137-145) mmol/L Potassium (3.4-5.1) mmol/L Chloride (98-107) mmol/L Carbon Dioxide (22-32) mmol/L BUN (9-20) mg/dL Creatinine (0.66-1.25) mg/dL Estimated GFR (>60) mL/min BUN/Creatinine Ratio (6-22) Glucose (70-100) mg/dL Calcium (8.4-10.2) mg/dL Phosphorus (2.5-4.5) mg/dL Magnesium (1.6-2.3) mg/dL Total Bilirubin (0.2-1.3) mg/dL AST (17-59) IU/L ALT (<50) IU/L Alkaline Phosphatase (38-126) U/L Total Protein (6.3-8.2) g/dL Albumin (3.5-5.0) g/dL Globulin (1.7-4.1) g/dL Albumin/Globulin Ratio (1.0-2.8) TSH (0.47-4.68) uIU/mL Urine Color Straw Urine Appearance Clear Urine pH 5.0 (4.5-8.0) Ur Specific [place] 1.020 (1.000-1.035) Urine Protein Trace H (Negative) Urine Glucose (UA) Trace H (Negative) g/dL Urine Ketones Trace H (NEGATIVE) Urine Occult Blood 1+ H (Negative) Urine Nitrate Negative (Negative) Urine Bilirubin Negative (NEGATIVE) Urine Urobilinogen 0.2 (0.2) E.U./dL Ur Leukocyte Esterase Negative (NEGATIVE) Urine RBC 1-5/hpf (0-5/HPF) Urine WBC 0-1/hpf (0-5/HPF) Uric Acid Crystals Few H (None) Urine Bacteria None seen (None) Ur Culture Indicated? Cult not indicated U Opiates 300ng/mL cut Negative (Negative) Ur Oxycodone Screen Negative (Negative) Urine Methadone Screen Negative (Negative) Ur Barbiturates Screen Negative (Negative) Total Valproic Acid (50-100) ug/mL U Tricyclic Antidepress Negative (Negative) Levetiracetam (10.0-40.0) ug/mL Ur Phencyclidine Scrn Negative (Negative) Ur Amphetamines Screen Negative (Negative) U Methamphetamines Scrn Negative (Negative) Ur MDMA Scrn (Ecstasy) Negative (Negative) U Benzodiazepines Scrn Negative (Negative) Urine Cocaine Screen Negative (Negative) U Marijuana (THC) Screen Positive H (Negative) Ethyl Alcohol ( - 10) mg/dL SARS-CoV-2 (PCR) (Negative) MDM Narrative Medical decision making narrative: This is a 26-year-old male with known seizure disorder starting age 21. Patient also has known bipolar. He is on Keppra and valproic acid. No clear causes or triggers for his seizures today but he is had 5 seizures total he has returned to baseline in between some of them he started this morning he had some intranasal Versed at 7:30 a.m. this morning but none persistently. Patient has had 5 seizures total today only 1 in the department. After Valium and being loaded with Keppra and valproic acid in the department his mentation appears to be improving. Patient does not have any other acute changes found. He does have a leukocytosis although this could be reactive he has been afebrile, hemoglobin stable at 12 with a normal crit, chloride was 1 time CO2 is 18 but this is likely secondary to lactic acidosis from seizure activity. Glucose is 167 with no other renal electrolyte abnormalities and normal LFTs and TSH. Urine does not show any signs of infection he does have some ketones. Toxicology is positive for marijuana, no EtOH. Keppra and total valproic acid levels were sent. Patient covid swab is negative. Patient is signed out to Dr. De La Rosa for continued monitoring over the next several hours to make sure patient does not have any additional seizure activity if he does well plan is for discharge home with alterations to his antiseizure medication. If he has recurrent seizure activity plan recontact Neurology at [facility]. Recommendations from Dr. Garcia from [facility] are included below including loading him with valproic acid. Appropriate for discharge home. Patient is essentially at baseline at time of discharge. Awake alert oriented x4. Clear speech. Is tired but awake. Reviewed with patient and mother return precautions. They do desire discharge home. Changes in medications in discharge instructions. Not toxic at discharge Discharge Plan Departure Patient Disposition: Home Clinical Impression: Seizure Activity Restrictions/Additional Instructions: Call to set up follow-up with your neurologist. I spoke with Dr. Garcia from your neurology team today and they recommend to adjust your medications. It is recommended you continue your Keppra at your current dose. Increase your valproic acid to 750 mg twice daily. Please return for recurrent seizures, seizure activity without return to baseline or seizure activity lasting more than 5 minutes, altered mental status, fevers, persistent vomiting or other new or concerning symptoms. Prescriptions: No Action escitalopram oxalate 10 mg tablet 10 mg PO DAILY levetiracetam 500 mg tablet extended release 24 hr 2,000 mg PO QPM levetiracetam 500 mg tablet extended release 24 hr 1,500 mg PO DAILY Label Comments: TAKE 3 TABLETS BY MOUTH IN THE MORNING AND 4 TABLETS IN THE EVENING Rx Instructions: Take in am Referrals: Fatmata Duong MD [Primary Care Provider] - Visit Report Forms: Patient Portal/API
[2022-06-02 14:26] LABS: Add Manual Diff / Slide Review NO; Basophils Absolute Auto 0 /uL (0-100); Basophils Percent Auto 0.2 % (0-2); Eosinophils Absolute Auto 0 /uL (0-450); Hematocrit 37.4 % (41-53); Hemoglobin 12.8 g/dL (13.5-17.5); Lymphocytes Absolute Auto 1200 /uL (1100-4500); Lymphocytes Percent Auto 6.3 % (25-40); Mean Corpuscular HGB Conc 34.3 % (30-36); Mean Corpuscular Hemoglobin 29.9 PG (26-34); Monocytes Absolute Auto 1400 /uL (0-900); Monocytes Percent Auto 7.5 % (3-14); Neutrophils Absolute Auto 16000 /uL (1500-7000); Platelet Count 292 X10^3/uL (150-400); Red Cell Distribution Width 14.1 % (11.6-14.8); White Blood Cell Count 18.6 X10^3/uL (4.5-11.0)
[2022-06-02 14:44] LABS: Alanine Aminotransferase 19 IU/L (<50); Albumin Globulin Ratio 1.6 (1.0-2.8); Alkaline Phosphatase 64 U/L (38-126); Aspartate Aminotransferase 33 IU/L (17-59); BUN Creatinine Ratio 15.1 (6-22); Bilirubin Total 0.2 mg/dL (0.2-1.3); Blood Urea Nitrogen 13 mg/dL (9-20); Calcium 8.9 mg/dL (8.4-10.2); Carbon Dioxide 18 mmol/L (22-32); Chloride 110 mmol/L (98-107); Estimated Glomerular Filt Rate > 60 mL/min (>60); Ethanol (ETOH) < 10 mg/dL; Globulin 3.2 g/dL (1.7-4.1); Glucose 167 mg/dL (70-100); HEMOLYSIS < 15 (0-50); Magnesium 2.1 mg/dL (1.6-2.3); Phosphorous 2.5 mg/dL (2.5-4.5); Sodium 142 mmol/L (137-145); Total Protein 8.2 g/dL (6.3-8.2)
[2022-06-02] MEDS: levETIRAcetam 1,000 MG in SODIUM CHLORIDE 0.9% 100 ML 440 MG IV (14:52)
[2022-06-02] MEDS: SODIUM CHLORIDE 0.9% 1,000 ML 1000 ML IV (14:53)
[2022-06-02] MEDS: diazePAM 10 MG/2 ML SYRINGE 2 MG IV ×2 (14:54→15:34)
--- NOTE | 2022-06-02 15:14 | PC.NURSE ---
1445: multiple RNs responded to pt actively seizing. MD at bedside immediately. tonic-clonic seizure lasted approz 2 min. suction utilized to clear airway, NRB @ 15L applied via blowby for oxygen support. repositioned s/p seizure for airway support. pt postictal. keppra infusing, valium administered during seizure per verbal read back order from Dr. Briggs. Mother at bedside throughout. 1515: VSS, pt taken to CT.
[2022-06-02 15:31] LABS: COVID19 -Nasal RAPID Negative (Negative)
[2022-06-02] MEDS: VALPROIC ACID 1,000 MG in DEXTROSE 5 % IN WATER 50 ML 60 MG IV (16:06)
[2022-06-02] MEDS: ONDANSETRON 4 MG/2 ML INJ IV (18:10)
--- NOTE | 2022-06-02 18:17 | PC.NURSE ---
1810: pt noted to be vomiting. notified, new orders to be placed
[2022-06-02 18:26] LABS: UR Morphine/Opiate cutoff 300 Negative (Negative); Ur Creatinine Normal (Normal); Ur Specific Gravity Normal (Normal); Urine Amphetamines Negative (Negative); Urine Barbiturates Negative (Negative); Urine Benzodiazepines Negative (Negative); Urine Cocaine Negative (Negative); Urine MDMA Negative (Negative); Urine Methadone Negative (Negative); Urine Methamphetamines Negative (Negative); Urine Oxycodone Negative (Negative); Urine Phencyclidine Negative (Negative); Urine Tetrahydrocannabinol Positive (Negative); Urine Tricyclic Antidepressant Negative (Negative); Urine pH Normal (Normal)
[2022-06-02 18:37] LABS: Appearance Urine UA CLEAR; Bilirubin Urine UA NEGATIVE (NEGATIVE); Glucose Urine UA TRACE g/dL (Negative); Ketones Urine UA TRACE (NEGATIVE); Leukocyte Esterase Urine UA NEGATIVE (NEGATIVE); Nitrite Urine UA NEGATIVE (Negative); Occult Blood Urine UA 1+ (Negative); Protein Urine UA TRACE (Negative); Urobilinogen Urine UA 0.2 E.U./dL (0.2)
[2022-06-02 18:40] LABS: Color Urine UA Straw
[2022-06-02 18:41] LABS: Bacteria Urine None Seen; Culture Indicated Urine Cult Not Indicated; RBC Urine 1-5/HPF (0-5/HPF); Uric Acid Crystals Urine Few; WBC Urine 0-1/HPF (0-5/HPF)
[2022-06-03 05:28] LABS: Valproic Acid (Depakene) Total 7 ug/mL (50-100)
[2022-06-06 02:15] LABS: Levetiracetam Keppra < 1.0 ug/mL (10.0-40.0)
== END 2022-06-02 22:45 | disposition home or self-care (01) ==
PROVIDERS: Emergency Medicine; Emergency Provider Emergency Medicine; PCP Psychiatry & Neurology Neurology
DX: G40.909 Epilepsy, unspecified, not intractable, without status epilepticus (principal); Z20.822 Contact with and (suspected) exposure to COVID-19
CPT/HCPCS: 36415; 70450; 71045; 80053; 80164; 80177; 80305; 80320; 81001; 83735; 84100; 84443; 85025; 87635; 93005; 96365; 96366; 96367; 96375; 96376; 99284; C9803; J1953; J2405; J3360

== ENCOUNTER 2025-03-25 07:15 | Emergency (ER) | payer OTHER, SELFPAY ==
[2022-02-22 21:23] VITALS: BMI 23.5
[2022-04-17 13:54] VITALS: RESP 14; O2SAT 100
[2025-03-25] VITALS (14 sets, daily range): BP systolic 122–153; BP diastolic 76–106; PULSE 77–105; RESP 16–25; TEMP 36.9; O2SAT 96–99; BMI 25.7
[2025-03-25 07:57] LABS: Add Manual Diff / Slide Review NO; Basophils Absolute Auto 100 /uL (0-100); Basophils Percent Auto 0.3 % (0-2); Eosinophils Absolute Auto 100 /uL (0-450); Eosinophils Percent Auto 0.5 % (2-4); Hematocrit 46.4 % (41-53); Hemoglobin 16.2 g/dL (13.5-17.5); Lymphocytes Absolute Auto 2200 /uL (1100-4500); Lymphocytes Percent Auto 9.5 % (25-40); Mean Corpuscular Hemoglobin 30.1 PG (26-34); Mean Corpuscular Volume 85.9 fL (80-100); Monocytes Absolute Auto 1600 /uL (0-900); Monocytes Percent Auto 6.9 % (3-14); Neutrophils Absolute Auto 19500 /uL (1500-7000); Neutrophils Percent Auto 82.8 % (50-75); Platelet Count 266 X10^3/uL (150-400); Red Cell Distribution Width 12.9 % (11.6-14.8); White Blood Cell Count 23.5 X10^3/uL (4.5-11.0)
--- NOTE | 2025-03-25 07:57 | ED_ITS ---
HPI - General Adult General Chief complaint: Neuro Symptoms/Deficit Stated complaint: Had a seizure Yesterday now throwing up Time Seen by Provider: 03/25/25 07:31 Source: patient and family Mode of arrival: Ambulatory History of Present Illness HPI narrative: 29-year-old male with history of bipolar disorder, history of seizure disorder diagnosed 2019 followed by [facility] neurologist Dr. Clark, no seizures for the last 1 year on current regimen of Keppra 1000 mg 2 tablets twice daily, and valproic acid 250 mg 3 tablets twice daily. Had seizure noon yesterday in context of recent nausea and vomiting, unable to keep medications down. History of elevated white blood cell count in the past, no known leukemia or white blood cell disorders known. Denies fevers or chills. Denies abdominal discomfort. Denies back pain. Has some sore throat symptoms after many episodes of nonbloody emesis. No black or red stools. No black or red emesis. Denies injury or trauma to the abdomen/trunk. Also denies headache, photophobia, posterior neck discomfort. Related Data Home Medications Medication Instructions Recorded Confirmed escitalopram oxalate 10 mg tablet 10 mg PO DAILY 09/20/21 04/17/22 levetiracetam 500 mg 2,000 mg PO QPM 09/20/21 04/17/22 tablet,extended release 24 hr levetiracetam 500 mg 1,500 mg PO DAILY 02/22/22 04/17/22 tablet,extended release 24 hr Previous Rx's Medication Instructions Recorded ondansetron 4 mg disintegrating 4 mg PO Q6H PRN nausea and 03/25/25 tablet vomiting #7 tabs Allergies Allergy/AdvReac Type Severity Reaction Status Date / Time No Known Drug Allergies Allergy Verified 06/02/22 14:05 Patient History Medical History Bipolar 1 disorder Renal insufficiency Seizure disorder Surgical History Hx of adenoidectomy Hx of tonsillectomy Family History Mother Diabetes mellitus Father Alive and well Social History household members: family Smoking Status: Current some day smoker alcohol intake: current Smoking Status: Current some day smoker alcohol intake frequency: holidays/special occasions only Exam Narrative Exam Narrative: GENERAL: Well-developed patient, in mild distress. HEAD: Atraumatic. Normocephalic. EYES: Pupils equal round and reactive. Extraocular motions intact. No scleral icterus. No injection or drainage. ENT: Nose without bleeding, purulent drainage. Throat without erythema, tonsillar hypertrophy or exudate. Airway patent. NECK: Trachea midline. Non tender CARDIOVASCULAR: Regular rate and rhythm without murmurs, gallops, or rubs. RESPIRATORY: Clear to auscultation. Breath sounds equal bilaterally. No wheezes, rales, or rhonchi. GASTROINTESTINAL: Abdomen soft, non-tender, nondistended. EXTREMITIES: No edema or joint tenderness. BACK: Nontender without deformity or crepitance. No flank tenderness. NEURO: AOx3. Motor functions grossly nonfocal SKIN: No rash or erythema of visible areas Initial Vital Signs Initial Vital Signs: Vital Signs Temperature 98.4 F 03/25/25 07:30 Pulse Rate 83 03/25/25 07:30 Respiratory Rate 16 03/25/25 07:30 Blood Pressure 140/89 03/25/25 07:30 Pulse Oximetry 96 03/25/25 07:30 Oxygen Delivery Method Room Air 03/25/25 07:30 Course Orders Ordered: Discontinued Medications Diphenhydramine HCl (Diphenhydramine 50 Mg/Ml Vial) 50 mg IV NOW ONE Stop: 03/25/25 09:24 Last Admin: 03/25/25 09:56 Dose: 50 mg Documented By: DAVINA Sodium Chloride (Normal Saline 0.9%) 1,000 mls @ 1,000 mls/hr IV BOLUS ONE Stop: 03/25/25 10:14 Last Infusion: 03/25/25 11:50 Dose: Infused Documented By: Admin: 03/25/25 09:55 Dose: 1,000 mls/hr Documented By: DAVINA Levetiracetam 1,000 mg/ Sodium (Chloride) 110 mls @ 440 mls/hr IV NOW ONE Stop: 03/25/25 09:25 Last Infusion: 03/25/25 10:35 Dose: Infused Documented By: Admin: 03/25/25 10:02 Dose: 440 mls/hr Documented By: DAVINA Valproic Acid 500 mg/ Dextrose 55 mls @ 55 mls/hr IV NOW ONE Stop: 03/25/25 09:25 Last Infusion: 03/25/25 11:51 Dose: Infused Documented By: Admin: 03/25/25 10:24 Dose: 55 mls/hr Documented By: LM Metoclopramide HCl (Metoclopramide 10 Mg/2 Ml Inj) 10 mg IV NOW ONE Stop: 03/25/25 09:24 Last Admin: 03/25/25 09:55 Dose: 10 mg Documented By: LM Ondansetron HCl (Ondansetron 4 Mg/2 Ml Inj) 4 mg IV NOW ONE Stop: 03/25/25 08:37 Last Admin: 03/25/25 08:42 Dose: 4 mg Documented By: DAVINA Vital Signs Vital signs: Vital Signs - 8 hr 03/25/25 12:50 Pulse Rate 79 Respiratory Rate 17 Blood Pressure 132/76 Pulse Oximetry 97 Oxygen Delivery Method Room Air Medical Decision Making Lab Data 03/25/25 07:44 03/25/25 07:44 Labs: Lab Results 03/25/25 03/25/25 03/25/25 Range/Units 07:44 08:01 08:45 WBC 23.5 H (4.5-11.0) X10^3/uL RBC 5.40 (4.5-5.9) X10^6/uL Hgb 16.2 (13.5-17.5) g/dL Hct 46.4 (41-53) % MCV 85.9 (80-100) fL MCH 30.1 (26-34) PG MCHC 35.0 (30-36) % RDW 12.9 (11.6-14.8) % Plt Count 266 (150-400) X10^3/uL Neut % (Auto) 82.8 H (50-75) % Lymph % (Auto) 9.5 L (25-40) % [place] % (Auto) 6.9 (3-14) % Eos % (Auto) 0.5 L (2-4) % Baso % (Auto) 0.3 (0-2) % Neut # (Auto) 33517 H (0051-5439) /uL Lymph # (Auto) 2200 (3798-0973) /uL [place] # (Auto) 1600 H (0-900) /uL Eos # (Auto) 100 (0-450) /uL Baso # (Auto) 100 (0-100) /uL Sodium 135 L (137-145) mmol/L Potassium 3.6 (3.4-5.1) mmol/L Chloride 92 L (98-107) mmol/L Carbon Dioxide 24 (22-32) mmol/L BUN 27 H (9-20) mg/dL Creatinine 1.40 H (0.66-1.25) mg/dL Estimated GFR > 60 (>60) mL/min BUN/Creatinine Ratio 19.3 (6-22) Glucose 120 H (70-99) mg/dL Lactate 1.1 (0.7-2.1) mmol/L Calcium 10.0 (8.4-10.2) mg/dL Total Bilirubin 1.3 (0.2-1.3) mg/dL AST 64 H (17-59) IU/L ALT 32 (<50) IU/L Alkaline Phosphatase 98 (38-126) U/L Total Protein 8.8 H (6.3-8.2) g/dL Albumin 5.2 H (3.5-5.0) g/dL Globulin 3.6 (1.7-4.1) g/dL Albumin/Globulin Ratio 1.4 (1.0-2.8) Procalcitonin 0.121 (<0.5) ng/mL Urine RBC None seen (0-5/HPF) Urine WBC None seen (0-5/HPF) Ur Squamous Epith Cells None seen (0-5/HPF) Urine Bacteria None seen (None) Hyaline Casts 0-1/lpf (None) Ur Culture Indicated? Cult not indicated Vol Urine Centrifuged 10ml (spun) SARS-CoV-2 (PCR) Negative (Negative) Influenza A (RT-PCR) Flu a negative (NEGATIVE) Influenza B (RT-PCR) Flu b negative (NEGATIVE) RSV (PCR) Negative (Negative) Urine Dip Bedside Urine Glucose Negative Bedside Urine Bilirubin - Negative Bedside Urine Ketone ++ 40 Urine Specific [place] 1.025 Bedside Urine Occult Blood - Negative Bedside Urine pH 6.0 Bedside Urine Protein +/- 15 Bedside Urine Urobilinogen - Negative Bedside Urine Nitrite - Negative Bedside Urine Leukocytes - Negative Esterase Point of care testing: Urine Dip Bedside Urine Glucose Negative Bedside Urine Bilirubin - Negative Bedside Urine Ketone ++ 40 Urine Specific [place] 1.025 Bedside Urine Occult Blood - Negative Bedside Urine pH 6.0 Bedside Urine Protein +/- 15 Bedside Urine Urobilinogen - Negative Bedside Urine Nitrite - Negative Bedside Urine Leukocytes - Negative Esterase MDM Narrative Medical decision making narrative: 29-year-old male with known bipolar disorder, seizure disorder on Keppra and valproate, nausea and vomiting for the last couple of days unable to keep regular medications down, had witnessed seizure by father yesterday noon, here primarily for persistent nausea vomiting unable to keep medications down. Screening labs sent. IV Keppra 1000 mg, IV valproic acid 500 mg. White blood cell count 23689 noted, has been [address]3311 in the past, but normal as well, no known leukemia, we will add chest x-ray and urinalysis. Nausea improved after Zofran, still has nausea, we will give IV Reglan/Benadryl. Creatinine 1.4 elevated, likely prerenal/dehydration, IV fluid bolus ordered. Chest x-ray negative. Urinalysis negative. Patient's symptoms improved, able to take oral fluids, ambulated. IV neuroleptics loaded. Patient has supply of Keppra and valproate at home. Consider repeat CBC/WBC lab drawn follow up. Prescription sent for ODT ondansetron to use if needed for nausea/vomiting control symptoms. Discharged home with family. Return precautions discussed. Discharge Plan Departure Patient Disposition: Home Clinical Impression: Nausea & vomiting, Seizure, History of seizure disorder Activity Restrictions/Additional Instructions: History of seizure disorder for which you usually take Keppra and valproic acid, recent nausea and vomiting unable to keep meds down including your seizure medications, witnessed seizure yesterday, still having nausea and vomiting without obvious blood. Elevated white blood cell count noted, which has been higher in the past, no known leukemia or other white blood cell count problems diagnosed. Your white blood cell count has also been normal in the past. Screening chest x-ray and urinalysis unremarkable. Abdominal exam unremarkable. You were given IV fluids and anti nausea medications. IV Keppra and IV valproic acid was given. You have a supply of your antiseizure medications to take. Prescription for oral dissolvable ondansetron sent to your pharmacy to help with nausea control. Follow up with your regular doctor early next week. Consider repeat white blood cell count testing to make sure it has normalized as it seemed to do in the past. Return earlier to this/nearest emergency department for any change worsening symptoms or any concerns prior. Prescriptions: New ondansetron 4 mg tablet,disintegrating 4 mg PO Q6H PRN (Reason: nausea and vomiting) Qty: 7 0RF No Action escitalopram oxalate 10 mg tablet 10 mg PO DAILY levetiracetam 500 mg tablet extended release 24 hr 2,000 mg PO QPM levetiracetam 500 mg tablet extended release 24 hr 1,500 mg PO DAILY Patient Comments: TAKE 3 TABLETS BY MOUTH IN THE MORNING AND 4 TABLETS IN THE EVENING Rx Instructions: Take in am Referrals: Fatmata Duong MD [Primary Care Provider] - Stand Alone Forms: Patient Portal/API/Survey
[2025-03-25 08:05] LABS: Alanine Aminotransferase 32 IU/L (<50); Albumin 5.2 g/dL (3.5-5.0); Albumin Globulin Ratio 1.4 (1.0-2.8); Alkaline Phosphatase 98 U/L (38-126); Aspartate Aminotransferase 64 IU/L (17-59); BUN Creatinine Ratio 19.3 (6-22); Bilirubin Total 1.3 mg/dL (0.2-1.3); Blood Urea Nitrogen 27 mg/dL (9-20); Carbon Dioxide 24 mmol/L (22-32); Chloride 92 mmol/L (98-107); Estimated Glomerular Filt Rate > 60 mL/min (>60); Globulin 3.6 g/dL (1.7-4.1); Glucose 120 mg/dL (70-99); HEMOLYSIS < 15 (0-50); Potassium 3.6 mmol/L (3.4-5.1); Sodium 135 mmol/L (137-145); Total Protein 8.8 g/dL (6.3-8.2)
[2025-03-25 08:12] LABS: Urine Volume 10mL (spun)
[2025-03-25 08:13] LABS: Bacteria Urine None Seen; Culture Indicated Urine Cult Not Indicated; Hyaline Casts Urine 0-1/LPF; RBC Urine None Seen (0-5/HPF); Squamous Epithelial Cell Urine None Seen (0-5/HPF); WBC Urine None Seen (0-5/HPF)
--- NOTE | 2025-03-25 08:14 | DI.RAD.S_ITS ---
PROCEDURE: XR CHEST 2V INDICATIONS: WBC high, eval for pn TECHNIQUE: 2 views of the chest were acquired. COMPARISON: [facility], CR, XR CHEST 1V, 06/02/2022, 15:14. [facility], CR, XR CHEST 1V, 04/17/2022, 13:50. FINDINGS: Surgical changes and devices: None. Lungs and pleura: Lungs are clear. No pleural effusions or pneumothorax. Mediastinum: Mediastinal contours are normal. Heart size is normal. Bones and chest wall: No suspicious bony abnormalities. Soft tissues appear unremarkable. IMPRESSION: No acute cardiopulmonary abnormality is seen. Dictated by: Roe Cooley M.D. on 03/25/2025 at 8:31 Approved by: Roe Cooley M.D. on 03/25/2025 at 8:31
[2025-03-25 08:23] LABS: Lactate (Lactic Acid) 1.1 mmol/L (0.7-2.1)
[2025-03-25] MEDS: ONDANSETRON 4 MG/2 ML INJ IV (08:42)
[2025-03-25 08:44] LABS: Procalcitonin 0.121 ng/mL (<0.5)
--- NOTE | 2025-03-25 08:54 | PC.NURSE ---
Pt sitting in bed c/o felling exhausted after being up for 36-48hrs, nausea, and intermittent emesis of small amounts per pt report. Pt given zofran for nausea and emesis. Pt on RA, A&ox4, breathing even/equal/unlabored at this time. Call light within reach
[2025-03-25 09:37] LABS: Influenza A - CEPHEID Flu A NEGATIVE (NEGATIVE); Influenza B - CEPHEID Flu B NEGATIVE (NEGATIVE); Respiratory Syncytial Virus Negative (Negative)
[2025-03-25 09:38] LABS: COVID-19 CEPHEID 4-PLEX PCR Negative (Negative)
[2025-03-25] MEDS: SODIUM CHLORIDE 0.9% 1,000 ML 1000 ML IV (09:55)
[2025-03-25] MEDS: METOCLOPRAMIDE 10 MG/2 ML INJ IV (09:55)
[2025-03-25] MEDS: diphenhydrAMINE 50 MG/ML VIAL IV (09:56)
[2025-03-25] MEDS: levETIRAcetam 1,000 MG in SODIUM CHLORIDE 0.9% 100 ML 440 MG IV (10:02)
[2025-03-25] MEDS: VALPROIC ACID 500 MG in DEXTROSE 5 % IN WATER 50 ML 55 MG IV (10:24)
== END 2025-03-25 12:54 | disposition home or self-care (01) ==
PROVIDERS: Emergency Provider Emergency Medicine; PCP Psychiatry & Neurology Neurology
DX: R11.2 Nausea with vomiting, unspecified (principal); G40.909 Epilepsy, unspecified, not intractable, without status epilepticus; Z86.69 Personal history of other diseases of the nervous system and sense organs
CPT/HCPCS: 0241U; 71046; 80053; 81003; 81015; 83605; 84145; 85025; 96365; 96367; 96375; 99284; J1200; J1953; J2405; J2765

== ENCOUNTER 2025-03-29 02:02 | Emergency (ER) | payer OTHER, SELFPAY ==
[2022-02-22 21:23] VITALS: BMI 23.5
[2022-04-17 13:54] VITALS: RESP 14; O2SAT 100
[2025-03-29 02:06] VITALS: BP 164/103; PULSE 70; O2SAT 100
[2025-03-29 02:07] VITALS: BP 152/90; PULSE 66; PULSE 70; RESP 16; TEMP 36.8; O2SAT 100; O2SAT 99; BMI 26.6
[2025-03-29 02:30] LABS: Strep Grp A by PCR Rapid Negative (Negative)
--- NOTE | 2025-03-29 04:11 | ED_ITS ---
HPI - General Adult General Chief complaint: Upper Respiratory Symptoms Stated complaint: Cannot Swallow X4 days Time Seen by Provider: 03/29/25 02:20 Source: patient Mode of arrival: Ambulatory History of Present Illness HPI narrative: 29-year-old gentleman history of bipolar and seizure disorder diagnosed back in 2019 recently seen on 03/25 for seizure currently on Keppra and valproic acid presents today with multiple complaints unable to focus, difficulty swallowing solids and liquids, feeling weak with no energy. He has not had a seizure in over 2 years until most recently for which he has increased seizure episodes of close to 5 in the past month. He states that he has a sore throat and whenever he eats or drinks then he starts to have chest and stomach discomfort. He is taking [id number] PPI but states it does not help. He denies fever, chills, nausea, vomiting, diarrhea, cough, runny nose, sick contacts. Other than what is stated 14 point review of system is negative. Related Data Home Medications Medication Instructions Recorded Confirmed escitalopram oxalate 10 mg tablet 10 mg PO DAILY 09/20/21 04/17/22 levetiracetam 500 mg 2,000 mg PO QPM 09/20/21 04/17/22 tablet,extended release 24 hr levetiracetam 500 mg 1,500 mg PO DAILY 02/22/22 04/17/22 tablet,extended release 24 hr Previous Rx's Medication Instructions Recorded ondansetron 4 mg disintegrating 4 mg PO Q6H PRN nausea and 03/25/25 tablet vomiting #7 tabs pantoprazole 40 mg tablet,delayed 40 mg PO DAILY #30 tabs 03/29/25 release (Protonix) Allergies Allergy/AdvReac Type Severity Reaction Status Date / Time No Known Drug Allergies Allergy Verified 06/02/22 14:05 Review of Systems Review of Systems ROS Unobtainable: All systems reviewed & are unremarkable except as noted in HPI and below Patient History Medical History Bipolar 1 disorder Renal insufficiency Seizure disorder Surgical History Hx of adenoidectomy Hx of tonsillectomy Family History Mother Diabetes mellitus Father Alive and well Social History household members: family Smoking Status: Never smoker alcohol intake: current Smoking Status: Never smoker alcohol intake frequency: holidays/special occasions only Exam Narrative Exam Narrative: GENERAL: [29] year old patient appears stated age. Well-developed patient, in mild distress. HEAD: Atraumatic. Normocephalic. EYES: Pupils equal round and reactive. Extraocular motions intact. No scleral icterus. No injection or drainage. ENT: Nose without bleeding, purulent drainage. Throat without erythema, tonsil lar hypertrophy or exudate. Airway patent. NECK: Trachea midline. Non tender CARDIOVASCULAR: Regular rate and rhythm without murmurs, gallops, or rubs. RESPIRATORY: Clear to auscultation. Breath sounds equal bilaterally. No wheezes, rales, or rhonchi. GASTROINTESTINAL: Abdomen soft, non-tender, nondistended. EXTREMITIES: No edema or joint tenderness. BACK: Nontender without deformity or crepitance. No flank tenderness. NEURO: AOx3. GCS 15 nonfocal neuro exam SKIN: No rash or erythema of visible areas Initial Vital Signs Initial Vital Signs: Vital Signs Pulse Rate 70 03/29/25 02:06 Blood Pressure 164/103 H 03/29/25 02:06 Pulse Oximetry 100 03/29/25 02:06 Course Orders Ordered: ED Orders 03/29/25 02:15 Strep Grp A by PCR Rapid Stat Throat Culture Stat Al Hydrox/Mg Hydrox/Simethicone 20 ml/ Lidocaine HCl 15 ml 0 ml PO NOW ONE Stop: 03/29/25 04:11 Vital Signs Vital signs: Vital Signs - 8 hr 03/29/25 02:06 03/29/25 02:06 03/29/25 02:07 Temperature 98.3 F Pulse Rate 70 70 Respiratory Rate 16 Blood Pressure 164/103 H 152/90 H Pulse Oximetry 100 99 Oxygen Delivery Method Room Air 03/29/25 02:07 03/29/25 02:07 Temperature Pulse Rate 66 Respiratory Rate Blood Pressure 152/90 H Pulse Oximetry 100 Oxygen Delivery Method Medical Decision Making Lab Data Labs: Lab Results 03/29/25 Range/Units 02:15 Group A Strep (PCR) Negative (Negative) MDM Narrative Medical decision making narrative: Vital signs, nursing triage note, medication list, previous ER visits, and all imaging modality reviewed. Patient given GI cocktail here and will be DC on Protonix 40 mg daily. Differential diagnosis includes strep throat viral syndrome GERD. Patient to follow up with neurologist in [place] regarding seizures and increased recent infrequent. Discharge Plan Departure Patient Disposition: Home Clinical Impression: GERD (gastroesophageal reflux disease) Qualifiers: Esophagitis presence: without esophagitis Qualified Code(s): K21.9 - Gastro- esophageal reflux disease without esophagitis Instructions: DI for Gastroesophageal Reflux Disease (GERD) Activity Restrictions/Additional Instructions: Return with new or worsening symptoms. Take your medicines directed. Follow up with neurologist in [place] regarding your seizures call office for appointment on Saturday. Prescriptions: New pantoprazole [Protonix] 40 mg tablet,delayed release (DR/EC) 40 mg PO DAILY Qty: 30 0RF No Action escitalopram oxalate 10 mg tablet 10 mg PO DAILY levetiracetam 500 mg tablet extended release 24 hr 2,000 mg PO QPM levetiracetam 500 mg tablet extended release 24 hr 1,500 mg PO DAILY Patient Comments: TAKE 3 TABLETS BY MOUTH IN THE MORNING AND 4 TABLETS IN THE EVENING Rx Instructions: Take in am ondansetron 4 mg tablet,disintegrating 4 mg PO Q6H PRN (Reason: nausea and vomiting) Qty: 7 0RF Referrals: Fatmata Duong MD [Primary Care Provider] - Stand Alone Forms: Patient Portal/API/Survey
[2025-03-29] MEDS: MAG HYDROX/ALUMINUM/SIMETH SUS 20 ML, LIDOCAINE VISCOUS 2% 15 ML PO (04:20)
[2025-03-29 04:27] VITALS: BP 149/86; PULSE 87; RESP 20; O2SAT 98
== END 2025-03-29 04:27 | disposition home or self-care (01) ==
PROVIDERS: Emergency Provider Family Medicine; PCP Psychiatry & Neurology Neurology
DX: K21.9 Gastro-esophageal reflux disease without esophagitis (principal)
CPT/HCPCS: 87070; 87651; 99283